=== PATIENT | female | born 1985 | race Caucasian/White ===

== ENCOUNTER 2016-11-30 02:52 | Emergency (ER) | payer OTHER ==
--- NOTE | 2016-11-30 06:35 | ED ORDER SUMMARY ---
..... Patient: BIRD HENAO OrderSheet [facility] VisitID: [id number] [place] [address] 31y, F Registration Date/Time: 11/30/2016 ORDER SHEET Weight: 88.4 kg (stated) Allergies: Penicillins, Sulfa Antibiotics, Azithromycin GENERAL ORDERS: CBC w Diff Urgent (03:05 11/30/2016 Moise Brumfield) (Ack 3:07 AMcQuoid ER Tech1) (4:55 AMcQuoid ER Tech1) CMP Urgent (03:05 11/30/2016 Moise Brumfield) (Ack 3:07 AMcQuoid ER Tech1) (4:55 AMcQuoid ER Tech1) UA-Culture if indicated Urgent (03:05 11/30/2016 Moise Brumfield) (Ack 3:07 AMcQuoid ER Tech1) PT with INR Urgent (03:05 11/30/2016 Moise Brumfield) (Ack 3:07 AMcQuoid ER Tech1) (4:56 AMcQuoid ER Tech1) PTT Urgent (03:05 11/30/2016 Moise Brumfield) (Ack 3:07 AMcQuoid ER Tech1) (4:56 AMcQuoid ER Tech1) Serum Quantitative Urgent (03:05 11/30/2016 Moise Brumfield) (Ack 3:07 AMcQuoid ER Tech1) (4:56 AMcQuoid ER Tech1) Type & Screen Urgent (03:05 11/30/2016 Moise Brumfield) (Ack 3:07 AMcQuoid ER Tech1) (4:56 AMcQuoid ER Tech1) Wet Prep (Vaginal) (mucus/blood) Urgent (03:05 11/30/2016 Moise Brumfield) (Ack 3:07 AMcQuoid ER Tech1) GC/Chlamydia (Cervix) (mucus/blood) Urgent (03:06 11/30/2016 Moise Brumfield) (Ack 3:07 AMcQuoid ER Tech1) US Pelvic Complete w Transvag Urgent (03:13 11/30/2016 Moise Brumfield) (Ack 3:32 AMcQuoid ER Tech1) (Cancelled: Wrong Order4:51 AMcQuoid ER Tech1) US OB 1st Trimester w Transvag (unk) Urgent (04:50 11/30/2016 AMcQuoid ER Tech1 verbal order read back to Moise Brumfield) (4:53 AMcQuoid ER Tech1) MEDICATION ORDERS: IV FLUIDS: IV NS : initial bolus 1000 mL (1000 mL/hr), then none - for X1 (NOW) (03:05 11/30/2016 Moise Brumfield) (Ack 3:05 RCollier R.N.) (3:37 EBonham) Morphine IV 4 mg (HIGH ALERT MEDICATION, NOW) (03:05 11/30/2016 Moise Brumfield) (Ack 3:05 SUSANollier R.N.) (3:36 EBonham) Morphine IV 8 mg (HIGH ALERT MEDICATION, NOW) (04:13 11/30/2016 Moise Brumfield) (Ack 4:17 RCollier R.N.) (4:31 RCollier R.N.) ORDER SHEET NOTES: [Electronically signed by Elizabeth Rowley R.N. (07:00 11/30/2016)] [Electronically signed by Black Chapa Dr. (02:48 12/07/2016)] [Electronically locked/signed by Elizabeth Rowley R.N. (07:00 11/30/2016)]
--- NOTE | 2016-11-30 06:35 | ED CLINICAL REPORT ---
Clinical Report - Physicians/Mid Levels [facility] [address] [place] [address] 11/30/2016 2:51 Patient: BIRD HENAO Arrived- By private vehicle. Historian- patient. HISTORY OF PRESENT ILLNESS Chief Complaint: VAGINAL BLEEDING. This started today. She has had pelvic pain and moderate vaginal bleeding. Is still present and worsening. It was abrupt in onset and has been waxing/waning but is not gone now. No contractions or vaginal discharge. Gestational age is 12 weeks, by dates. Similar symptoms previously: None. Recent medical care: The patient was seen recently in a clinic. REVIEW OF SYSTEMS No black stools, bloody stools, fever or skin rash. All systems otherwise negative, except as recorded above. PAST HISTORY See nurses notes. SOCIAL HISTORY Never smoker. Occasional alcohol use. No drug use. No recent travel. Is a local resident. FAMILY HISTORY (no family history of bleeding problems). ADDITIONAL NOTES The nursing notes have been reviewed. PHYSICAL EXAM Vital Signs: 11/30/2016 02:57 BP: 122/78. HR: 80. RR: 18. O2 saturation: 99%. Temp: 98.2 F. Holt-Rodriguez pain scale: 4/10. Blood pressure normal. Oxygen saturation normal. Appearance: Alert. Oriented X3. No acute distress. HEENT: Normal external inspection. ENT: Pharynx normal. Neck: Neck supple. CVS: Heart sounds normal. Respiratory: No respiratory distress. Breath sounds normal. Chest nontender. Abdomen: Soft and nontender. Bowel sounds normal. No mass. Back: Normal external inspection. Pelvic: Speculum and bimanual exam performed. Normal external exam. Uterine size: weeks (< 12 weeks). No dilation. (Oss closed. No masses. No CMT. Moderate amount of dark red blood and clots in the posterior vaginal vault. Exam performed with pediatric associate Silvia at all times.). Skin: Skin warm and dry. Normal skin color. No rash. Normal skin turgor. Extremities: Extremities nontender. No pathologic edema. LABS, X-RAYS, AND EKG Pelvic Sonogram: PROCEDURE: US OB 1ST TRIMESTER W/TRANSVAG INDICATION: ABNORMAL BLEEDING TECHNIQUE: Estrella scale, color, and spectral Doppler transabdominal and endovaginal sonographic images of the first trimester gravid uterus were obtained. COMPARISON: None. FINDINGS: TRANSABDOMINAL SCANS: There is an early intrauterine gestational sac. TRANSVAGINAL SCANS: There is an early intrauterine gestational sac with pole (1.2 cm, 7.3 weeks). There is no evidence of cardiac activity. In addition, the sac is elongated and extending into the lower uterine segment. IMPRESSION: 1. Early intrauterine demise with probable miscarriage in progress. The study was independently viewed by me and interpreted by the radiologist. The study was discussed with the radiologist (via phone and PACS). Laboratory Tests: CBC w Diff: (QUANG: 11/30/2016 03:35) ( MsgRcvd 11/30/2016 03:41) Final results Test Result Flag Units (Reference) WHITE BLOOD COUNT 8.3 K/uL (4.5-11.5) RED BLOOD COUNT 4.10 M/uL (4.00-5.20) HEMOGLOBIN 12.5 gm/dL (12.0-16.0) HEMATOCRIT 37.2 % (36.0-46.0) MEAN CELL VOLUME 91 fL (80-100) MEAN CORPUSCULAR HGB 31 pg (26-34) MEAN CORPUSCULAR HGB CONC 34 g/dL (31-37) RED CELL DISTRIBUTION WIDTH 12.8 % (11.6-14.8) PLATELET COUNT 243 K/uL (150-400) NEUTROPHIL % 59.5 % (50-75) LYMPH % 30.2 % (25-40) MONO % 7.6 % (3-14) EOSINOPHIL % 2.7 % (0-4) BASOPHIL % 0 % (0-2) PT with INR: (QUANG: 11/30/2016 03:35) ( MsgRcvd 11/30/2016 03:52) Final results Test Result Flag Units (Reference) INR 1.1 (0.8-1.2) Low Intensity Therapy: INR 1.5-2.0 PT range 18.5-23.1Mod.Intensity Therapy: INR 2.0-3.0 PT range 23.1-31.5High Intensity Therapy: INR 2.5-3.5 PT range 27.4-35.5High Intensity Therapy 2: INR 3.0-4.0 PT range 31.5-39.3 APTT 29 SECONDS (24-34) CMP: (QUANG: 11/30/2016 03:35) ( MsgRcvd 11/30/2016 04:10) Final results Test Result Flag Units (Reference) GLUCOSE 105 mg/dL (70-110) BUN 11 mg/dL (7-18) CREATININE 0.8 mg/dL (0.6-1.3) Estimated GFR >60 mL/min Estimated GFR- >60 mL/min Note: Persistent reduction over 3 months in eGFR<60 mL/min/1.73 m2 defines CKD. Patients with eGFR values>=60 mL/min/1.73 m2 may also have CKD if evidence ofpersistent proteinuria. Additional information may be foundat www.kidney.org. SODIUM 140 mmol/L (136-145) POTASSIUM 3.8 mmol/L (3.5-5.1) CHLORIDE 105 mmol/L (98-107) CARBON DIOXIDE 25 mmol/L (21-32) CALCIUM 8.6 mg/dL (8.5-10.1) TOTAL PROTEIN 7.4 g/dL (6.4-8.2) ALBUMIN 3.5 g/dL (3.3-5.0) BILIRUBIN, TOTAL 0.4 mg/dL (0.0-1.0) ALKALINE PHOSPHATASE 81 U/L (46-116) AST (SGOT) 17 U/L (15-37) ALT (SGPT) 28 U/L (12-78) BETA HCG, QUANTITATIVE 759 mIU/mL REFERENCE RANGE:Adult Males: <2 mIU/mLNon- Females: <6 mIU/mL Females:Approximate Approximate hCGGestational Age Range (mIU/mL) 0-1 week 0-501-2 weeks 40-3002-3 weeks 100-44766-8 weeks 500-13316-9 months 5,000-200,0002-3 months 10,000-100,0002nd trimester 3,000-50,0003rd trimester 1,000-50,000 2017:[id number]: (QUANG: 11/30/2016 05:40) ( MsgRcvd 12/02/2016 06:07) Final results SPECIMEN DESCRIPTION: MUCUS/BLOOD Test Result Flag Units (Reference) CHLAMYDIA TRACHOMATIS DANIELLE Negative NEISSERIA GONORRHOEAE DANIELLE Negative Performed at: [facility] Lab[address] [id number] [place] Plant Supervisor: Reji Bustos MD, Phone: [phone] Wet Prep: (QUANG: 11/30/2016 05:40) ( MsgRcvd 11/30/2016 06:07) Final results SPECIMEN DESCRIPTION: MUCUS/BLOOD Test Result Flag Units (Reference) WET MOUNT CLUE CELLS:: NONE EPITHELIAL CELLS: FEW -- SOURCE?: VAGINAL WHITE BLOOD CELLS: RARE TRICHOMONAS:: NONE -- YEAST:: NONE Type & Screen: (QUANG: 11/30/2016 03:35) ( [facility] [place]/30/[place] 04:46) Final results Test Result Flag Units (Reference) PATIENT BLOOD TYPE O Positive ANTIBODY SCREEN NEGATIVE . PROGRESS AND PROCEDURES Course of Care: the patient is a pleasant 31-year-old female presenting for evaluation of vaginal bleeding during . At this time differential diagnosis includes ectopic versus threatened/impending . Laboratory studies have been ordered for evaluation of bleeding. Ultrasound also ordered for evaluation. Patient apparently was at her CLINICAL CARE MANAGER clinics appointment and was told of possible spontaneous . Pain medication as been ordered. Patient is agreeable to the treatment and plan. Workup does not show any acute abnormalities except for patient having signs of impending . Bleeding is been controlled here in the emergency department. Vital signs are unremarkable. Hemoglobin and hematocrit are noted to be within normal limits. Had discussion with patient in regards to miscarriage. Patient reports that she has had a history of this in the past. The rest of the patient's workup including urinalysis and wet prep are otherwise negative. No signs of ectopic however threatened versus impending likely. Patient informed of the pending gonorrhea and chlamydia testing results. I'm completing this note after the patient has been dissed position from the emergency department and also note that the gonorrhea and chlamydia tests are negative. Patient was informed of possible positive results being called and in the next several days. Do not feel patient needs to be admitted to the hospital at this time. Do not feel patient needs further emergency department workup or evaluation. I discussion with her patient in regards to her workup, diagnosis, home care, follow-up, and return precautions. All questions answered. The patient expressed understanding of these instructions and was agreeable to them. Disposition: Discharged. Condition: good. CLINICAL IMPRESSION Incomplete spontaneous . INSTRUCTIONS Warnings: GENERAL WARNINGS: Return or contact your physician immediately if your condition worsens or changes unexpectedly, if not improving as expected, or if other problems arise. Specifically return if pain, vomiting, bleeding, breathing difficulty or fever. Your Current Medications: CONTINUE TAKING THE FOLLOWING MEDICATIONS: Citalopram Hydrobromide Oral : Tablet 40 mg, 1 tablet daily. Doxycycline Hyclate Oral : twice daily, ear/sinus infection. Prescription Medications: Zofran (orally disintegrating tablets) 4 mg: take 1 orally every 8 hours as needed for nausea and vomiting. Dispense ten (10). No refill. Substitution is permissible. Percocet 5 mg/325 mg: take 1 tablet orally every 6 hours as needed for pain. Dispense twenty (20). No refill. Substitution is permissible. Follow-up: Return to the emergency department as needed. Follow up with your doctor in three days. Reason for referral: recheck today's concerns. Summary of care provided to patient via paper. 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 Reason for referral: recheck today's concerns. Summary of care provided to patient via paper. Screening today revealed the patient's blood pressure to be in the normal range. The patient should follow up with a primary care provider for blood pressure management. Understanding of the discharge instructions verbalized by patient. (Electronically signed by Black Chapa Dr. 12/07/2016 2:48)
--- NOTE | 2016-11-30 06:35 | ED ORDER SUMMARY ---
..... Patient: BIRD HENAO OrderSheet [facility] VisitID: [id number] [place] [address] 31y, F Registration Date/Time: 11/30/2016 ORDER SHEET Weight: 88.4 kg (stated) Allergies: Penicillins, Sulfa Antibiotics, Azithromycin GENERAL ORDERS: CBC w Diff Urgent (03:05 11/30/2016 Moise Brumfield) (Ack 3:07 AMcQuoid ER Tech1) (4:55 AMcQuoid ER Tech1) CMP Urgent (03:05 11/30/2016 Moise Brumfield) (Ack 3:07 AMcQuoid ER Tech1) (4:55 AMcQuoid ER Tech1) UA-Culture if indicated Urgent (03:05 11/30/2016 Moise Brumfield) (Ack 3:07 AMcQuoid ER Tech1) PT with INR Urgent (03:05 11/30/2016 Moise Brumfield) (Ack 3:07 AMcQuoid ER Tech1) (4:56 AMcQuoid ER Tech1) PTT Urgent (03:05 11/30/2016 Moise Brumfield) (Ack 3:07 AMcQuoid ER Tech1) (4:56 AMcQuoid ER Tech1) Serum Quantitative Urgent (03:05 11/30/2016 Moise Brumfield) (Ack 3:07 AMcQuoid ER Tech1) (4:56 AMcQuoid ER Tech1) Type & Screen Urgent (03:05 11/30/2016 Moise Brumfield) (Ack 3:07 AMcQuoid ER Tech1) (4:56 AMcQuoid ER Tech1) Wet Prep (Vaginal) (mucus/blood) Urgent (03:05 11/30/2016 Moise Brumfield) (Ack 3:07 AMcQuoid ER Tech1) GC/Chlamydia (Cervix) (mucus/blood) Urgent (03:06 11/30/2016 Moise Brumfield) (Ack 3:07 AMcQuoid ER Tech1) US Pelvic Complete w Transvag Urgent (03:13 11/30/2016 Moise Brumfield) (Ack 3:32 AMcQuoid ER Tech1) (Cancelled: Wrong Order4:51 AMcQuoid ER Tech1) US OB 1st Trimester w Transvag (unk) Urgent (04:50 11/30/2016 AMcQuoid ER Tech1 verbal order read back to Moise Brumfield) (4:53 AMcQuoid ER Tech1) MEDICATION ORDERS: IV FLUIDS: IV NS : initial bolus 1000 mL (1000 mL/hr), then none - for X1 (NOW) (03:05 11/30/2016 Moise Brumfield) (Ack 3:05 RCollier R.N.) (3:37 EBonham) Morphine IV 4 mg (HIGH ALERT MEDICATION, NOW) (03:05 11/30/2016 Moise Brumfield) (Ack 3:05 SUSANollier R.N.) (3:36 EBonham) Morphine IV 8 mg (HIGH ALERT MEDICATION, NOW) (04:13 11/30/2016 Moise Brumfield) (Ack 4:17 RCollier R.N.) (4:31 RCollier R.N.) ORDER SHEET NOTES: [Electronically signed by Elizabeth Rowley R.N. (07:00 11/30/2016)] [Electronically signed by Black Chapa Dr. (02:48 12/07/2016)] [Electronically locked/signed by Elizabeth Rowley R.N. (07:00 11/30/2016)]
--- NOTE | 2016-11-30 06:35 | ED CLINICAL REPORT ---
Clinical Report - Physicians/Mid Levels [facility] [address] [place] [address] 11/30/2016 2:51 Patient: BIRD HENAO Arrived- By private vehicle. Historian- patient. HISTORY OF PRESENT ILLNESS Chief Complaint: VAGINAL BLEEDING. This started today. She has had pelvic pain and moderate vaginal bleeding. Is still present and worsening. It was abrupt in onset and has been waxing/waning but is not gone now. No contractions or vaginal discharge. Gestational age is 12 weeks, by dates. Similar symptoms previously: None. Recent medical care: The patient was seen recently in a clinic. REVIEW OF SYSTEMS No black stools, bloody stools, fever or skin rash. All systems otherwise negative, except as recorded above. PAST HISTORY See nurses notes. SOCIAL HISTORY Never smoker. Occasional alcohol use. No drug use. No recent travel. Is a local resident. FAMILY HISTORY (no family history of bleeding problems). ADDITIONAL NOTES The nursing notes have been reviewed. PHYSICAL EXAM Vital Signs: 11/30/2016 02:57 BP: 122/78. HR: 80. RR: 18. O2 saturation: 99%. Temp: 98.2 F. Holt-Rodriguez pain scale: 4/10. Blood pressure normal. Oxygen saturation normal. Appearance: Alert. Oriented X3. No acute distress. HEENT: Normal external inspection. ENT: Pharynx normal. Neck: Neck supple. CVS: Heart sounds normal. Respiratory: No respiratory distress. Breath sounds normal. Chest nontender. Abdomen: Soft and nontender. Bowel sounds normal. No mass. Back: Normal external inspection. Pelvic: Speculum and bimanual exam performed. Normal external exam. Uterine size: weeks (< 12 weeks). No dilation. (Oss closed. No masses. No CMT. Moderate amount of dark red blood and clots in the posterior vaginal vault. Exam performed with purchasing/receiving Silvia at all times.). Skin: Skin warm and dry. Normal skin color. No rash. Normal skin turgor. Extremities: Extremities nontender. No pathologic edema. LABS, X-RAYS, AND EKG Pelvic Sonogram: PROCEDURE: US OB 1ST TRIMESTER W/TRANSVAG INDICATION: ABNORMAL BLEEDING TECHNIQUE: Estrella scale, color, and spectral Doppler transabdominal and endovaginal sonographic images of the first trimester gravid uterus were obtained. COMPARISON: None. FINDINGS: TRANSABDOMINAL SCANS: There is an early intrauterine gestational sac. TRANSVAGINAL SCANS: There is an early intrauterine gestational sac with pole (1.2 cm, 7.3 weeks). There is no evidence of cardiac activity. In addition, the sac is elongated and extending into the lower uterine segment. IMPRESSION: 1. Early intrauterine demise with probable miscarriage in progress. The study was independently viewed by me and interpreted by the radiologist. The study was discussed with the radiologist (via phone and PACS). Laboratory Tests: CBC w Diff: (QUANG: 11/30/2016 03:35) ( MsgRcvd 11/30/2016 03:41) Final results Test Result Flag Units (Reference) WHITE BLOOD COUNT 8.3 K/uL (4.5-11.5) RED BLOOD COUNT 4.10 M/uL (4.00-5.20) HEMOGLOBIN 12.5 gm/dL (12.0-16.0) HEMATOCRIT 37.2 % (36.0-46.0) MEAN CELL VOLUME 91 fL (80-100) MEAN CORPUSCULAR HGB 31 pg (26-34) MEAN CORPUSCULAR HGB CONC 34 g/dL (31-37) RED CELL DISTRIBUTION WIDTH 12.8 % (11.6-14.8) PLATELET COUNT 243 K/uL (150-400) NEUTROPHIL % 59.5 % (50-75) LYMPH % 30.2 % (25-40) MONO % 7.6 % (3-14) EOSINOPHIL % 2.7 % (0-4) BASOPHIL % 0 % (0-2) PT with INR: (QUANG: 11/30/2016 03:35) ( MsgRcvd 11/30/2016 03:52) Final results Test Result Flag Units (Reference) INR 1.1 (0.8-1.2) Low Intensity Therapy: INR 1.5-2.0 PT range 18.5-23.1Mod.Intensity Therapy: INR 2.0-3.0 PT range 23.1-31.5High Intensity Therapy: INR 2.5-3.5 PT range 27.4-35.5High Intensity Therapy 2: INR 3.0-4.0 PT range 31.5-39.3 APTT 29 SECONDS (24-34) CMP: (QUANG: 11/30/2016 03:35) ( MsgRcvd 11/30/2016 04:10) Final results Test Result Flag Units (Reference) GLUCOSE 105 mg/dL (70-110) BUN 11 mg/dL (7-18) CREATININE 0.8 mg/dL (0.6-1.3) Estimated GFR >60 mL/min Estimated GFR- >60 mL/min Note: Persistent reduction over 3 months in eGFR<60 mL/min/1.73 m2 defines CKD. Patients with eGFR values>=60 mL/min/1.73 m2 may also have CKD if evidence ofpersistent proteinuria. Additional information may be foundat www.kidney.org. SODIUM 140 mmol/L (136-145) POTASSIUM 3.8 mmol/L (3.5-5.1) CHLORIDE 105 mmol/L (98-107) CARBON DIOXIDE 25 mmol/L (21-32) CALCIUM 8.6 mg/dL (8.5-10.1) TOTAL PROTEIN 7.4 g/dL (6.4-8.2) ALBUMIN 3.5 g/dL (3.3-5.0) BILIRUBIN, TOTAL 0.4 mg/dL (0.0-1.0) ALKALINE PHOSPHATASE 81 U/L (46-116) AST (SGOT) 17 U/L (15-37) ALT (SGPT) 28 U/L (12-78) BETA HCG, QUANTITATIVE 759 mIU/mL REFERENCE RANGE:Adult Males: <2 mIU/mLNon- Females: <6 mIU/mL Females:Approximate Approximate hCGGestational Age Range (mIU/mL) 0-1 week 0-501-2 weeks 40-3002-3 weeks 100-60625-8 weeks 500-00684-7 months 5,000-200,0002-3 months 10,000-100,0002nd trimester 3,000-50,0003rd trimester 1,000-50,000 2017:[id number]: (QUANG: 11/30/2016 05:40) ( MsgRcvd 12/02/2016 06:07) Final results SPECIMEN DESCRIPTION: MUCUS/BLOOD Test Result Flag Units (Reference) CHLAMYDIA TRACHOMATIS DANIELLE Negative NEISSERIA GONORRHOEAE DANIELLE Negative Performed at: [facility] [address] [id number] Swimming Pool Plasterer Helper: Reji Bustos MD, Phone: [phone] Wet Prep: (QUANG: 11/30/2016 05:40) ( MsgRcvd 11/30/2016 06:07) Final results SPECIMEN DESCRIPTION: MUCUS/BLOOD Test Result Flag Units (Reference) WET MOUNT CLUE CELLS:: NONE EPITHELIAL CELLS: FEW -- SOURCE?: VAGINAL WHITE BLOOD CELLS: RARE TRICHOMONAS:: NONE -- YEAST:: NONE Type & Screen: (QUANG: 11/30/2016 03:35) ( [facility] [place] 11/30/2016 04:46) Final results Test Result Flag Units (Reference) PATIENT BLOOD TYPE O Positive ANTIBODY SCREEN NEGATIVE . PROGRESS AND PROCEDURES Course of Care: the patient is a pleasant 31-year-old female presenting for evaluation of vaginal bleeding during . At this time differential diagnosis includes ectopic versus threatened/impending . Laboratory studies have been ordered for evaluation of bleeding. Ultrasound also ordered for evaluation. 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 Pain medication as been ordered. Patient is agreeable to the treatment and plan. Workup does not show any acute abnormalities except for patient having signs of impending . Bleeding is been controlled here in the emergency department. Vital signs are unremarkable. Hemoglobin and hematocrit are noted to be within normal limits. Had discussion with patient in regards to miscarriage. Patient reports that she has had a history of this in the past. The rest of the patient's workup including urinalysis and wet prep are otherwise negative. No signs of ectopic however threatened versus impending likely. Patient informed of the pending gonorrhea and chlamydia testing results. I'm completing this note after the patient has been dissed position from the emergency department and also note that the gonorrhea and chlamydia tests are negative. Patient was informed of possible positive results being called and in the next several days. Do not feel patient needs to be admitted to the hospital at this time. Do not feel patient needs further emergency department workup or evaluation. I discussion with her patient in regards to her workup, diagnosis, home care, follow-up, and return precautions. All questions answered. The patient expressed understanding of these instructions and was agreeable to them. Disposition: Discharged. Condition: good. CLINICAL IMPRESSION Incomplete spontaneous . INSTRUCTIONS Warnings: GENERAL WARNINGS: Return or contact your physician immediately if your condition worsens or changes unexpectedly, if not improving as expected, or if other problems arise. Specifically return if pain, vomiting, bleeding, breathing difficulty or fever. Your Current Medications: CONTINUE TAKING THE FOLLOWING MEDICATIONS: Citalopram Hydrobromide Oral : Tablet 40 mg, 1 tablet daily. Doxycycline Hyclate Oral : twice daily, ear/sinus infection. Prescription Medications: Zofran (orally disintegrating tablets) 4 mg: take 1 orally every 8 hours as needed for nausea and vomiting. Dispense ten (10). No refill. Substitution is permissible. Percocet 5 mg/325 mg: take 1 tablet orally every 6 hours as needed for pain. Dispense twenty (20). No refill. Substitution is permissible. Follow-up: Return to the emergency department as needed. Follow up with your doctor in three days. Reason for referral: recheck today's concerns. Summary of care provided to patient via paper. Follow up with doctor your loading manager in three days. Reason for referral: recheck today's concerns. Summary of care provided to patient via paper. Screening today revealed the patient's blood pressure to be in the normal range. The patient should follow up with a primary care provider for blood pressure management. Understanding of the discharge instructions verbalized by patient. (Electronically signed by Black Chapa Dr. 12/07/2016 2:48)
--- NOTE | 2016-11-30 06:35 | ED NURSING NOTES ---
Clinical Report - Nurses [facility] [place] [address] 11/30/2016 2:51 Patient: BIRD HENAO TRIAGE Triage time 02:57. Acuity: LEVEL 4. Chief Complaint: ABDOMINAL PAIN and CRAMPS and VAGINAL BLEEDING. Alert. No acute distress. --03:03 Elizabeth Rowley R.N. 02:57 11/30/16. BP: 122/78. HR: 80. RR: 18. O2 saturation: 99%. Temp: 98.2 F (oral). Holt-Rodriguez pain scale: 4/10. --03:03 Elizabeth Rowley R.N. Weight: 88.4 kg stated. Height/Length: 69 inches Per Patient. BMI: 28.8. --02:57 Elizabeth Rowley R.N. Medications Doxycycline Hyclate Oral, twice daily, ear/sinus infection. --02:59 Elizabeth Rowley R.N. Citalopram Hydrobromide Oral (Tablet 40 mg) 1 tablet, daily. --02:59 Elizabeth Rowley R.N. Allergies Penicillins. Sulfa Antibiotics. --03:00 Elizabeth Rowley R.N. Azithromycin. (medication reaction to Citalopram) --03:00 Elizabeth Rowley R.N. History Arrived by private vehicle. Historian: patient. Accompanied by family. Primary physician (/[facility] (Dr Senait ALMEIDA)). This started today. Onset. (about 1 1/2 hours ago (pt is in process of misscarrying)). 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 (500mg at 0200). PAST MEDICAL HX: Immunizations: up-to-date. Last normal menstrual period- August 2016. 4. Para 1. Abortions 3. SOCIAL HX: Never smoker. Occasional alcohol use. No drug use. NUTRITIONAL RISK ASSESSMENT: The nutritional risk assessment revealed no deficiencies. FUNCTIONAL ASSESSMENT: Functional assessment: no impairments noted. --03:03 Elizabeth Rowley R.N. PROBLEMS: Depression. Anxiety Reaction. Migraine Headache. --03:01 Elizabeth Rowley R.N. ADDITIONAL SURGERIES: . Slap lesion repair. Tonsillectomy & Adenoidectomy. --03:01 Elizabeth Rowley R.N. Interventions ID band on patient. To treatment room. --03:03 Elizabeth Rowley R.N. PHYSICAL ASSESSMENT Ambulatory to room. Patient gowned. GENERAL / NEURO / PSYCH: Alert. Oriented X 4. Appears in no acute distress. HEENT: Mucous membranes are pink. RESPIRATORY: Respirations not labored. CVS: Capillary refill less than 2 seconds. SKIN: Skin is warm and dry. --03:03 Elizabeth Rowley R.N. NURSING PROGRESS NOTES Head of bed elevated. Two patient identifiers checked. Call light placed in reach. Side rails up x 1. Bed placed in lowest position. Brakes of bed on. --03:04 Elizabeth Rowley R.N. Patient ready for evaluation- chart flagged. --03:04 Elizabeth Rowley R.N. 03:25 11/30/2016 Two (2) unsuccessful IV access attempts including the right antecubital space and hand. Applied bandaid. --03:30 Elizabeth Rowley R.N. 03:36 11/30/2016 Site #1 started via IV in the left antecubital space with an 20g angiocath, with aseptic technique and good blood return; one attempt. Blood drawn: rainbow set. Labeled in the presence of the patient and sent to the lab. Saline lock flushed with 10 mL saline. --03:36 Stephanie Henry 03:36 11/30/2016 Morphine IVP 4 mg given. via site #1. Allergies verified, confirmed 5 rights and sedative warning given to the patient. IV patency established. IV site checked: no pain, redness, or swelling. IV flushed thoroughly pre- and post-medication administration. IVP given by RN. --03:36 Stephanie Henry 03:37 11/30/2016 Started bag #1 1000 mL IV Fluids IV NS (Saline); bolus of 1000 mL wide open via site #1 --03:37 Stephanie Henry 04:28 11/30/2016 Morphine IVP 8 mg given over 3 minute(s) via site #1. Allergies verified, confirmed 5 rights and sedative warning given to the patient. IV patency established. IV site checked: no pain, redness, or swelling. IV flushed thoroughly pre- and post-medication administration. IVP given by RN. --04:31 Elizabeth Rowley R.N. ( Application Processor US exam). --04:51 Silvia Jordan 05:18 11/30/2016 IV Fluids IV NS Discontinued: bag #1 completed. Total amount infused: 1000 mL. IV patency established. IV site checked: no pain, redness, or swelling. IV flushed thoroughly. --05:18 Elizabeth Rowley R.N. Application Processor provided for the pelvic exam by the physician ([id number]). --06:04 Silvia Jordan. DISPOSITION / DISCHARGE Condition at departure: stable. No learning barriers present. Discharge instructions provided and reviewed with the patient. Reviewed medication(s) side effects, precautions, dosing and course information. Prescription(s) given to the patient. Patient verbalized understanding. Written instructions provided in Belarusian. The patient was discharged home and accompanied by family. She left the Emergency Department ambulatory and via private vehicle. Family member driving. --06:59 Elizabeth Rowley R.N. 06:54 11/30/16. BP: 109/66. HR: 90. RR: 15. O2 saturation: 99% on room air. Temp: 98.2 F (oral). Holt-Rodriguez pain scale: 2/10. --06:59 Elizabeth Rowley R.N. 06:50 11/30/2016 Site #1 removed upon discharge. Catheter intact. Bandage applied. --06:59 Elizabeth Rowley R.N. Locked/Released at 11/30/2016 7:00 by Elizabeth Rowley R.N.
--- NOTE | 2016-11-30 06:35 | ED NURSING NOTES ---
Clinical Report - Nurses [facility] [place] [address] 11/30/2016 2:51 Patient: BIRD HENAO TRIAGE Triage time 02:57. Acuity: LEVEL 4. Chief Complaint: ABDOMINAL PAIN and CRAMPS and VAGINAL BLEEDING. Alert. No acute distress. --03:03 Elizabeth Rowley R.N. 02:57 11/30/16. BP: 122/78. HR: 80. RR: 18. O2 saturation: 99%. Temp: 98.2 F (oral). Holt-Rodriguez pain scale: 4/10. --03:03 Elizabeth Rowley R.N. Weight: 88.4 kg stated. Height/Length: 69 inches Per Patient. BMI: 28.8. --02:57 Elizabeth Rowley R.N. Medications Doxycycline Hyclate Oral, twice daily, ear/sinus infection. --02:59 Elizabeth Rowley R.N. Citalopram Hydrobromide Oral (Tablet 40 mg) 1 tablet, daily. --02:59 Elizabeth Rowley R.N. Allergies Penicillins. Sulfa Antibiotics. --03:00 Elizabeth Rowley R.N. Azithromycin. (medication reaction to Citalopram) --03:00 Elizabeth Rowley R.N. History Arrived by private vehicle. Historian: patient. Accompanied by family. Primary physician (/[facility] (Dr Senait ALMEIDA)). This started today. Onset. (about 1 1/2 hours ago (pt is in process of misscarrying)). 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 (500mg at 0200). PAST MEDICAL HX: Immunizations: up-to-date. Last normal menstrual period- August 2016. 4. Para 1. Abortions 3. SOCIAL HX: Never smoker. Occasional alcohol use. No drug use. NUTRITIONAL RISK ASSESSMENT: The nutritional risk assessment revealed no deficiencies. FUNCTIONAL ASSESSMENT: Functional assessment: no impairments noted. --03:03 Elizabeth Rowley R.N. PROBLEMS: Depression. Anxiety Reaction. Migraine Headache. --03:01 Elizabeth Rowley R.N. ADDITIONAL SURGERIES: . Slap lesion repair. Tonsillectomy & Adenoidectomy. --03:01 Elizabeth Rowley R.N. Interventions ID band on patient. To treatment room. --03:03 Elizabeth Rowley R.N. PHYSICAL ASSESSMENT Ambulatory to room. Patient gowned. GENERAL / NEURO / PSYCH: Alert. Oriented X 4. Appears in no acute distress. HEENT: Mucous membranes are pink. RESPIRATORY: Respirations not labored. CVS: Capillary refill less than 2 seconds. SKIN: Skin is warm and dry. --03:03 Elizabeth Rowley R.N. NURSING PROGRESS NOTES Head of bed elevated. Two patient identifiers checked. Call light placed in reach. Side rails up x 1. Bed placed in lowest position. Brakes of bed on. --03:04 Elizabeth Rowley R.N. Patient ready for evaluation- chart flagged. --03:04 Elizabeth Rowley R.N. 03:25 11/30/2016 Two (2) unsuccessful IV access attempts including the right antecubital space and hand. Applied bandaid. --03:30 Elizabeth Rowley R.N. 03:36 11/30/2016 Site #1 started via IV in the left antecubital space with an 20g angiocath, with aseptic technique and good blood return; one attempt. Blood drawn: rainbow set. Labeled in the presence of the patient and sent to the lab. Saline lock flushed with 10 mL saline. --03:36 Stephanie Henry 03:36 11/30/2016 Morphine IVP 4 mg given. via site #1. Allergies verified, confirmed 5 rights and sedative warning given to the patient. IV patency established. IV site checked: no pain, redness, or swelling. IV flushed thoroughly pre- and post-medication administration. IVP given by RN. --03:36 Stephanie Henry 03:37 11/30/2016 Started bag #1 1000 mL IV Fluids IV NS (Saline); bolus of 1000 mL wide open via site #1 --03:37 Stephanie Henry 04:28 11/30/2016 Morphine IVP 8 mg given over 3 minute(s) via site #1. Allergies verified, confirmed 5 rights and sedative warning given to the patient. IV patency established. IV site checked: no pain, redness, or swelling. IV flushed thoroughly pre- and post-medication administration. IVP given by RN. --04:31 Elizabeth Rowley R.N. ( Popcorn Machine Operator US exam). --04:51 Silvia Jordan 05:18 11/30/2016 IV Fluids IV NS Discontinued: bag #1 completed. Total amount infused: 1000 mL. IV patency established. IV site checked: no pain, redness, or swelling. IV flushed thoroughly. --05:18 Elizabeth Rowley R.N. Popcorn Machine Operator provided for the pelvic exam by the physician ([id number]). --06:04 Silvia Jordan. DISPOSITION / DISCHARGE Condition at departure: stable. No learning barriers present. Discharge instructions provided and reviewed with the patient. Reviewed medication(s) side effects, precautions, dosing and course information. Prescription(s) given to the patient. Patient verbalized understanding. Written instructions provided in Nigerien. The patient was discharged home and accompanied by family. She left the Emergency Department ambulatory and via private vehicle. Family member driving. --06:59 Elizabeth Rowley R.N. 06:54 11/30/16. BP: 109/66. HR: 90. RR: 15. O2 saturation: 99% on room air. Temp: 98.2 F (oral). Holt-Rodriguez pain scale: 2/10. --06:59 Elizabeth Rowley R.N. 06:50 11/30/2016 Site #1 removed upon discharge. Catheter intact. Bandage applied. --06:59 Elizabeth Rowley R.N. Locked/Released at 11/30/2016 7:00 by Elizabeth Rowley R.N.
--- NOTE | 2016-11-30 09:13 | DIAGNOSTIC IMAGING REPORT ---
PROCEDURE: US OB 1ST TRIMESTER W/TRANSVAG INDICATION: ABNORMAL BLEEDING TECHNIQUE: Estrella scale, color, and spectral Doppler transabdominal and endovaginal sonographic images of the first trimester gravid uterus were obtained. COMPARISON: None. FINDINGS: TRANSABDOMINAL SCANS: There is an early intrauterine gestational sac. TRANSVAGINAL SCANS: There is an early intrauterine gestational sac with pole (1.2 cm, 7.3 weeks). There is no evidence of cardiac activity. In addition, the sac is elongated and extending into the lower uterine segment. IMPRESSION: 1. Early intrauterine demise with probable miscarriage in progress. 2. Findings discussed with Dr. Chapa.
--- NOTE | 2016-12-07 02:48 | ED MED RECONCILIATION SUMMARY ---
Patient: BIRD HENAO Medication Reconciliation Report [facility] VisitID: [id number] [address] [place] [address] 31y, F Registration Date/Time: 11/30/2016 Weight: 88.4 kg Height/Length: 69 in. BMI: 28.8 ALLERGIES: Azithromycin, Penicillins, Sulfa Antibiotics The patient's Home Medications are listed below: CONTINUE TAKING THE FOLLOWING MEDICATIONS: Citalopram Hydrobromide Oral (40 mg) 1 tablet, daily Doxycycline Hyclate Oral, twice daily, ear/sinus infection The source(s) of the original Home Medication information: Not obtained. The following Medications were given to the patient in the Emergency Department: Morphine [IVP] IVP 4 mg, administered: 11/30/2016 3:36:00 AM IV NS IV Fluids bolus 1000 mL wide open, administered: 11/30/2016 3:37:00 AM Morphine [IVP] IVP 8 mg, administered: 11/30/2016 4:28:00 AM The following Medications were prescribed to the patient: Zofran (orally disintegrating tablets) 4 mg: take 1 orally every 8 hours as needed for nausea and vomiting. Dispense ten (10). No refill. Substitution is permissible. -- [address]. Percocet 5 mg/325 mg: take 1 tablet orally every 6 hours as needed for pain. Dispense twenty (20). No refill. Substitution is permissible. -- [address].
--- NOTE | 2016-12-07 02:48 | ED MAR SUMMARY ---
..... Medication Administration Record [facility] [address] [place] [address] Patient: BIRD HENAO Visit ID: [id number] 31y, F Weight: 88.4 kg Height/Length: 69 in BMI: 28.8 ALLERGIES: Azithromycin, Sulfa Antibiotics, Penicillins Given 03:36 11/30/2016 Stephanie Henry, Medication Administered: MORPHINE [IVP], Dose: 4 mg IVP, Site: #1 left AC. Medication Ordered: Morphine IV 4 mg (HIGH ALERT MEDICATION, NOW). Start 03:37 11/30/2016 Stephanie Henry,, Stop 05:18 11/30/2016 Elizabeth Rowley RChantalNChantal Medication Administered: IV NS (SALINE), Dose: IV Fluids, Bolus: 1000 mL wide open, Dispensed: 1000 mL bag, Site: #1 left AC. Medication Ordered: IV NS : initial bolus 1000 mL (1000 mL/hr), then none - for X1 (NOW). Given 04:28 11/30/2016 Elizabeth Rowley RChantalNChantal Medication Administered: MORPHINE [IVP], Dose: 8 mg IVP over 3 minute(s), Site: #1 left AC. Medication Ordered: Morphine IV 8 mg (HIGH ALERT MEDICATION, NOW).
--- NOTE | 2016-12-07 02:48 | ED DISCHARGE INSTRUCTIONS ---
Patient: BIRD HENAO General Instructions [facility] VisitID: [id number] [place] [address] 31y, F Registration Date/Time: 11/30/2016 Incomplete spontaneous . INSTRUCTIONS Warnings: GENERAL WARNINGS: Return or contact your physician immediately if your condition worsens or changes unexpectedly, if not improving as expected, or if other problems arise. Specifically return if pain, vomiting, bleeding, breathing difficulty or fever. Your Current Medications: CONTINUE TAKING THE FOLLOWING MEDICATIONS: Citalopram Hydrobromide Oral : Tablet 40 mg, 1 tablet daily. Doxycycline Hyclate Oral : twice daily, ear/sinus infection. Prescription Medications: Zofran (orally disintegrating tablets) 4 mg: take 1 orally every 8 hours as needed for nausea and vomiting. Dispense ten (10). No refill. Substitution is permissible. Percocet 5 mg/325 mg: take 1 tablet orally every 6 hours as needed for pain. Dispense twenty (20). No refill. Substitution is permissible. Follow-up: Return to the emergency department as needed. Follow up with your doctor in three days. Reason for referral: recheck today's concerns. Summary of care provided to patient via paper. Follow up with doctor your slasher runner in three days. Reason for referral: recheck today's concerns. Summary of care provided to patient via paper. Screening today revealed the patient's blood pressure to be in the normal range. The patient should follow up with a primary care provider for blood pressure management. Understanding of the discharge instructions verbalized by patient. ADDITIONAL INFORMATION Miscarriage (Incomplete) Todays exam shows that your has ended suddenly. While this may be an emotionally difficult time for you, know that it is not an uncommon event. A miscarriage can be due to various causes. These include a problem with the babys chromosomes (genes that carry the information needed for life) or with fertilization or implantation that didnt happen correctly. In most cases no cause can be found. Be assured that this miscarriage was not the result of anything that you did wrong, and it will not interfere with your ability to become in the future. It appears that your miscarriage is not yet complete. There is still some tissue from the in the uterus. You will probably have more cramping and bleeding for the next few days as the uterus expels the tissue. In many cases all of the tissue will pass by itself. But sometimes tissue remains and it must be removed to stop bleeding and prevent infection. Home Care: You may resume normal activities if you are not having heavy bleeding or pain. Until the bleeding stops completely and to prevent infection: Do not have sexual intercourse for as long as the healthcare provider tells you. Use sanitary napkins instead of tampons. Do not douche. If you feel sadness or grief, it may help to talk about your feelings with family and friends, or with a counselor. Follow Up: Make an appointment to see your doctor as directed by our staff. tissue will appear as a one-inch or larger piece of andersen or pink flesh. If tissue has not passed from the vagina within the next 5 days, you need to be seen by your doctor for another exam. To prevent infection in the uterus, it may be necessary to remove the tissue through a surgical procedure. Or, you may be prescribed medication to take at home to help your body expel the remaining tissue. Get Prompt Medical Attention if any of the following occur: Heavy bleeding (soaking one new pad an hour over three hours) Foul-smelling vaginal discharge Fever of 100.4F (38C) or higher, or as directed by your healthcare provider Increasing lower abdominal pain Weakness, dizziness, or fainting Ondansetron Oral disintegrating tablet What is this medicine? ONDANSETRON (on BEATRIZ se cayla) is used to treat nausea and vomiting caused by chemotherapy. It is also used to prevent or treat nausea and vomiting after surgery. How should I use this medicine? These tablets are made to dissolve in the mouth. Do not try to push the tablet through the foil backing. With dry hands, peel away the foil backing and gently remove the tablet. Place the tablet in the mouth and allow it to dissolve, then swallow. While you may take these tablets with water, it is not necessary to do so. Talk to your head cleaning porter regarding the use of this medicine in children. Special care may be needed. What side effects may I notice from receiving this medicine? Side effects that you should report to your doctor or health transitions rn care coordinator as soon as possible: allergic reactions like skin rash, itching or hives, swelling of the face, lips, or tongue breathing problems dizziness fast or irregular heartbeat feeling faint or lightheaded, falls fever and chills swelling of the hands and feet tightness in the chest Side effects that usually do not require medical attention (report to your doctor or health transitions rn care coordinator if they continue or are bothersome): constipation or diarrhea headache What may interact with this medicine? Do not take this medicine with any of the following medications: -apomorphine -cisapride -dofetilide -dronedarone -pimozide -thioridazine -ziprasidone This medicine may also interact with the following medications: -carbamazepine -phenytoin -rifampicin -tramadol -other medicines that prolong the QT interval (cause an abnormal heart rhythm) What if I miss a dose? If you miss a dose, take it as soon as you can. If it is almost time for your next dose, take only that dose. Do not take double or extra doses. Where should I keep my medicine? Keep out of the reach of children. Store between 2 and 30 degrees C (36 and 86 degrees F). Throw away any unused medicine after the expiration date. What should I tell my health care provider before I take this medicine? They need to know if you have any of these conditions: heart disease history of irregular heartbeat liver disease low levels of magnesium or potassium in the blood an unusual or allergic reaction to ondansetron, granisetron, other medicines, foods, dyes, or preservatives or trying to get breast-feeding What should I watch for while using this medicine? Check with your doctor or health transitions rn care coordinator as soon as you can if you have any sign of an allergic reaction. Oxycodone Hydrochloride, Acetaminophen Oral tablet What is this medicine? ACETAMINOPHEN; OXYCODONE (a set a LUDIN dick fen; ox i KOE done) is a pain reliever. It is used to treat mild to moderate pain. How should I use this medicine? Take this medicine by mouth with a full glass of water. Follow the directions on the prescription label. Take your medicine at regular intervals. Do not take your medicine more often than directed. Talk to your head cleaning porter regarding the use of this medicine in children. Special care may be needed. Patients over 65 years old may have a stronger reaction and need a smaller dose. What side effects may I notice from receiving this medicine? Side effects that you should report to your doctor or health transitions rn care coordinator as soon as possible: allergic reactions like skin rash, itching or hives, swelling of the face, lips, or tongue breathing difficulties, wheezing confusion light headedness or fainting spells severe stomach pain yellowing of the skin or the whites of the eyes Side effects that usually do not require medical attention (report to your doctor or health transitions rn care coordinator if they continue or are bothersome): dizziness drowsiness nausea vomiting What may interact with this medicine? alcohol antihistamines barbiturates like amobarbital, butalbital, butabarbital, methohexital, pentobarbital, phenobarbital, thiopental, and secobarbital benztropine drugs for bladder problems like solifenacin, trospium, oxybutynin, tolterodine, hyoscyamine, and methscopolamine drugs for breathing problems like ipratropium and tiotropium drugs for certain stomach or intestine problems like propantheline, homatropine methylbromide, glycopyrrolate, atropine, belladonna, and dicyclomine general anesthetics like etomidate, ketamine, nitrous oxide, propofol, desflurane, enflurane, halothane, isoflurane, and sevoflurane medicines for depression, anxiety, or psychotic disturbances medicines for sleep muscle relaxants naltrexone narcotic medicines (opiates) for pain phenothiazines like perphenazine, thioridazine, chlorpromazine, mesoridazine, fluphenazine, prochlorperazine, promazine, and trifluoperazine scopolamine tramadol trihexyphenidyl What if I miss a dose? If you miss a dose, take it as soon as you can. If it is almost time for your next dose, take only that dose. Do not take double or extra doses. Where should I keep my medicine? Keep out of the reach of children. This medicine can be abused. Keep your medicine in a safe place to protect it from theft. Do not share this medicine with anyone. Selling or giving away this medicine is dangerous and against the law. Store at room temperature between 20 and 25 degrees C (68 and 77 degrees F). Keep container tightly closed. Protect from light. This medicine may cause accidental overdose and if it is taken by other adults, children, or pets. Flush any unused medicine down the toilet to reduce the chance of harm. Do not use the medicine after the expiration date. What should I tell my health care provider before I take this medicine? They need to know if you have any of these conditions: brain tumor Crohn's disease, inflammatory bowel disease, or ulcerative colitis drink more than 3 alcohol containing drinks per day drug abuse or addiction head injury heart or circulation problems kidney disease or problems going to the bathroom liver disease lung disease, asthma, or breathing problems an unusual or allergic reaction to acetaminophen, oxycodone, other opioid analgesics, other medicines, foods, dyes, or preservatives or trying to get breast-feeding What should I watch for while using this medicine? Tell your doctor or health transitions rn care coordinator if your pain does not go away, if it gets worse, or if you have new or a different type of pain. You may develop tolerance to the medicine. Tolerance means that you will need a higher dose of the medication for pain relief. Tolerance is normal and is expected if you take this medicine for a long time. Do not suddenly stop taking your medicine because you may develop a severe reaction. Your body becomes used to the medicine. This does NOT mean you are addicted. Addiction is a behavior related to getting and using a drug for a non-medical reason. If you have pain, you have a medical reason to take pain medicine. Your doctor will tell you how much medicine to take. If your doctor wants you to stop the medicine, the dose will be slowly lowered over time to avoid any side effects. You may get drowsy or dizzy. Do not drive, use machinery, or do anything that needs mental alertness until you know how this medicine affects you. Do not stand or sit up quickly, especially if you are an older patient. This reduces the risk of dizzy or fainting spells. Alcohol may interfere with the effect of this medicine. Avoid alcoholic drinks. There are different types of narcotic medicines (opiates) for pain. If you take more than one type at the same time, you may have more side effects. Give your health care provider a list of all medicines you use. Your doctor will tell you how much medicine to take. Do not take more medicine than directed. Call emergency for help if you have problems breathing. The medicine will cause constipation. Try to have a bowel movement at least every 2 to 3 days. If you do not have a bowel movement for 3 days, call your doctor or health transitions rn care coordinator. Do not take Tylenol (acetaminophen) or medicines that have acetaminophen with this medicine. Too much acetaminophen can be very dangerous. Many nonprescription medicines contain acetaminophen. Always read the labels carefully to avoid taking more acetaminophen. You have been given the following additional information: Miscarriage (Incomplete) Ondansetron Oral disintegrating tablet Oxycodone Hydrochloride, Acetaminophen Oral tablet (Electronically signed by Black Chapa Dr. 12/07/2016 2:48)
--- NOTE | 2016-12-07 02:48 | ED MED RECONCILIATION SUMMARY ---
Patient: BIRD HENAO Medication Reconciliation Report [facility] VisitID: [id number] [address] [place] [address] 31y, F Registration Date/Time: 11/30/2016 Weight: 88.4 kg Height/Length: 69 in. BMI: 28.8 ALLERGIES: Azithromycin, Penicillins, Sulfa Antibiotics The patient's Home Medications are listed below: CONTINUE TAKING THE FOLLOWING MEDICATIONS: Citalopram Hydrobromide Oral (40 mg) 1 tablet, daily Doxycycline Hyclate Oral, twice daily, ear/sinus infection The source(s) of the original Home Medication information: Not obtained. The following Medications were given to the patient in the Emergency Department: Morphine [IVP] IVP 4 mg, administered: 11/30/2016 3:36:00 AM IV NS IV Fluids bolus 1000 mL wide open, administered: 11/30/2016 3:37:00 AM Morphine [IVP] IVP 8 mg, administered: 11/30/2016 4:28:00 AM The following Medications were prescribed to the patient: Zofran (orally disintegrating tablets) 4 mg: take 1 orally every 8 hours as needed for nausea and vomiting. Dispense ten (10). No refill. Substitution is permissible. -- Black Chapa Dr. Percocet 5 mg/325 mg: take 1 tablet orally every 6 hours as needed for pain. Dispense twenty (20). No refill. Substitution is permissible. -- Black Chapa Dr.
--- NOTE | 2016-12-07 02:48 | ED MAR SUMMARY ---
..... Medication Administration Record [facility] [address] [place] [address] Patient: BIRD HENAO Visit ID: [id number] 31y, F Weight: 88.4 kg Height/Length: 69 in BMI: 28.8 ALLERGIES: Azithromycin, Sulfa Antibiotics, Penicillins Given 03:36 11/30/2016 Stephanie Henry, Medication Administered: MORPHINE [IVP], Dose: 4 mg IVP, Site: #1 left AC. Medication Ordered: Morphine IV 4 mg (HIGH ALERT MEDICATION, NOW). Start 03:37 11/30/2016 Stephanie Henry,, Stop 05:18 11/30/2016 Elizabeth Rowley RChantalNChantal Medication Administered: IV NS (SALINE), Dose: IV Fluids, Bolus: 1000 mL wide open, Dispensed: 1000 mL bag, Site: #1 left AC. Medication Ordered: IV NS : initial bolus 1000 mL (1000 mL/hr), then none - for X1 (NOW). Given 04:28 11/30/2016 Elizabeth Rowley RChantalNChantal Medication Administered: MORPHINE [IVP], Dose: 8 mg IVP over 3 minute(s), Site: #1 left AC. Medication Ordered: Morphine IV 8 mg (HIGH ALERT MEDICATION, NOW).
[2017-01-31] MEDS ORDERED: CITALOPRAM HYDR40 MG PO (16:29)
== END 2016-11-30 06:54 | disposition home or self-care (01) ==
LOC: ED SRH 02:52
DX: O03.4 Incomplete spontaneous abortion without complication (principal); Z3A.12 12 weeks gestation of pregnancy; Z88.0 Allergy status to penicillin; Z88.2 Allergy status to sulfonamides
CPT/HCPCS: 90001; 90100; 90155; 90195; 90197; 91004; 91227; 91228; 94001; 94060; 95059

== ENCOUNTER 2016-12-06 15:30 | Emergency (ER) | payer OTHER ==
--- NOTE | 2016-12-06 17:18 | DIAGNOSTIC IMAGING REPORT ---
PROCEDURE: US COMPLETE PELVIC W/TRANSVAG INDICATION: Recent demise with continued cramping and bleeding TECHNIQUE: Transabdominal and endovaginal andersen scale and color Doppler sonographic images of the female pelvis were obtained. COMPARISON: Pelvic ultrasound 11/30/2016 FINDINGS: TRANSABDOMINAL SCANS: There is a cystic structure in the lower uterine segment. Ovaries are unremarkable. Normal kidneys. TRANSVAGINAL SCANS: There is an elongated gestational sac in the lower uterine segment with what appears to be a pole without cardiac activity. There is also an ovoid structure along the posterior aspect of this collection with some vascularity. There is also vascularity of the fundal portion of the endometrium. Overall, no significant interval change. IMPRESSION: 1. demise in the lower uterine segment with vascular endometrium suggestive of retained products of conception 2. Results discussed with Jacquelyn Boateng
--- NOTE | 2016-12-06 17:45 | ED NURSING NOTES ---
Clinical Report - Nurses [facility] [place] [address] 12/06/2016 15:31 Patient: BIRD HENAO TRIAGE Triage time 15:51. Acuity: LEVEL 3. Chief Complaint: ABDOMINAL PAIN and CRAMPS and VAGINAL BLEEDING and (November 14 demise. Miscarriage has been ongoing. Today the abd pain, cramps, and bleeding has gotten much worse.). 15:54 12/06/16. --15:58 Kalen Ayon R.N. 15:51 12/06/16. BP: 121/65. HR: 91. RR: 20. O2 saturation: 99%. Temp: 98.7 F (oral). Pain level now: 9/10. --15:58 Kalen Ayon R.N. 15:58 12/06/16. SEPSIS SCREEN: Sepsis Screen. Negative (no infection suspected/documented). --15:58 Kalen Ayon R.N. Weight: 88.4 kg stated. Height/Length: 69 inches Per Patient. BMI: 28.8. --15:53 Kalen Ayon R.N. Medications Citalopram Hydrobromide Oral (Tablet 40 mg) 1 tablet, daily. Doxycycline Hyclate Oral, twice daily, ear/sinus infection. --15:51 Kalen Ayon R.N. Allergies Azithromycin. (medication reaction to Citalopram) Penicillins. Sulfa Antibiotics. --15:51 Kalen Ayon R.N. History ( Pt states she feels like she might have a fever now.). ( Nausea (new sx)). No vomiting. PAST MEDICAL HX: OB history: G 4; P 1. SOCIAL HX: Never smoker. Occasional alcohol use. No drug use. ABUSE ASSESSMENT: No report of abuse. --15:58 Kalen Ayon R.N. PROBLEMS: . Depression. Chronic Headache. Immunizations. . Anxiety Reaction. Migraine Headache. --15:51 Kalen Ayon R.N. ADDITIONAL SURGERIES: Adenoidectomy. . Slap lesion repair. Tonsillectomy. Tonsillectomy & Adenoidectomy. --15:51 Kalen Ayon R.N. Interventions ID band on patient. To treatment room. --15:58 Kalen Ayon R.N. PHYSICAL ASSESSMENT 16:00 12/06/16. Ambulatory to room. GENERAL / NEURO / PSYCH: Alert. Oriented X 4. Appears in pain. HEENT: Mucous membranes are pink. RESPIRATORY: Respirations not labored. Breath sounds within normal limits. CVS: Normal heart rate and rhythm. Capillary refill less than 2 seconds. GI / : Abdominal distention. Vaginal bleeding present (copious per pt.). EXTREMITIES: No lower extremity edema. SKIN: Skin is warm and dry. --16:04 Kalen Ayon R.N. NURSING PROGRESS NOTES 16:00. Patient gowned. Head of bed elevated. Reassurance given. Two patient identifiers checked. Call light placed in reach. Bed placed in lowest position. Brakes of bed on. Patient ready for evaluation- chart flagged. --16:05 Kalen Ayon R.N. 16:25 12/06/2016 Toradol (Ketorolac Tromethamine) IM 60 mg given. Given in the right deltoid. Allergies verified and confirmed 5 rights. --16:28 Kalen Ayon R.N. 16:28 12/06/16. ( US at the bedside now.). --16:28 Kalen Ayon R.N. 17:40 12/06/16. PELVIC EXAM: Pelvic exam performed by LIME SLAKER. Assisted by one nurse. Preparation: patient placed in lithotomy position. Procedure: speculum exam. Status post-procedure: she was stable and no complications were noted. Total time of assist / procedure: (5 minutes). --17:41 Paola Kenney R.N. DISPOSITION / DISCHARGE Departure time: 1751. Condition at departure: improved. No learning barriers present. Reviewed referral to family practice for followup. Work note given. Patient and whipped topping mixer verbalized understanding. Written instructions provided. The patient was discharged home and accompanied by whipped topping mixer. She left the Emergency Department ambulatory and via private vehicle. --18:26 Paola Kenney R.N. 17:52 12/06/16. BP: 109/58. HR: 81. RR: 18. O2 saturation: 98%. Pain level now: 01/19. --18:26 Paola Kenney R.N. Locked/Released at 12/06/2016 18:26 by Paola Kenney R.N.
--- NOTE | 2016-12-06 17:45 | ED ORDER SUMMARY ---
..... Patient: BIRD HENAO OrderSheet [facility] VisitID: [id number] [place] [address] 31y, F Registration Date/Time: 12/06/2016 ORDER SHEET Weight: 88.4 kg (stated) Allergies: Azithromycin, Penicillins, Sulfa Antibiotics GENERAL ORDERS: US Pelvic Complete w Transvag Urgent (16:14 12/06/2016 HBivens A.R.N.P.) (Ack 16:31 LTapper) (17:47 LSullivan R.N.) CBC w Diff Urgent (16:14 12/06/2016 HBivens A.R.N.P.) (Ack 16:31 LTapper) (16:36 LTapper) BMP Urgent (16:14 12/06/2016 HBivens A.R.N.P.) (Ack 16:31 LTapper) (16:36 LTapper) Serum Quantitative Urgent (16:14 12/06/2016 HBivens A.R.N.P.) (Ack 16:31 LTapper) (16:37 LTapper) Pelvic Exam Setup (16:14 12/06/2016 HBivens A.R.N.P.) (17:47 LSullivan R.N.) MEDICATION ORDERS: Toradol IM 60 mg (NOW) (16:14 12/06/2016 HBivens A.R.N.P.) (16:28 JSimbeck R.N.) IV FLUIDS: ORDER SHEET NOTES: [Electronically signed by Paola Kenney R.N. (18:26 12/06/2016)] [Electronically signed by Jacquelyn BoatengR.N.P. (20:21 12/06/2016)] [Electronically locked/signed by Paola Kenney R.N. (18:26 12/06/2016)]
--- NOTE | 2016-12-06 17:45 | ED CLINICAL REPORT ---
Clinical Report - Physicians/Mid Levels [facility] [address] [place] [address] 12/06/2016 15:31 Patient: BIRD HENAO Time Seen: 15:51; initial patient contact, initial documentation, patient care assumed. Arrived- By private vehicle. Historian- patient. RETURN VISIT: recently seen in this ED by another ED physician. Seen now for the same problem as before. HISTORY OF PRESENT ILLNESS Chief Complaint: PELVIC PAIN and VAGINAL BLEEDING. This started just prior to arrival and still present. The symptoms are described as severe. Modifying factors. Not worsened by anything. Not relieved by anything. The patient has had severe, crampy right-sided, suprapubic and left-sided pelvic pain, described as "pain". She has had abnormal bleeding described as heavier than normal period says the bleeding has been intermittent since Sep. No vaginal pain, low back pain, flank pain, pain with urination or urinary frequency. No urgency of urination or hematuria. Sexually active. Currently . G 4. P 1. Ab 3. Similar symptoms previously: Milder. Recent medical care: The patient was seen recently at this facility in the emergency department and office. ( txed here 07/31 for same thing, dx with incomplete , went to Dr Sapp today, no exam done, he just talked to me, gave rx of something to help facilitate the miscarriage, but rx was not filled yet, pain and bleeding got worse, so came here). REVIEW OF SYSTEMS No nausea, vomiting, diarrhea, fever or difficulty breathing. No chest pain. She has had mild transient dizziness described as a light-headedness. She has had new onset of generalized weakness. All systems otherwise negative, except as recorded above. PAST HISTORY See nurses notes. ( PROBLEMS: . Depression. Chronic Headache. Immunizations. . Anxiety Reaction. Migraine Headache. --15:51 Kalen Ayon R.N. ADDITIONAL SURGERIES: Adenoidectomy. . Slap lesion repair. Tonsillectomy. Tonsillectomy & Adenoidectomy. --15:51 Kalen Ayon R.N.). SOCIAL HISTORY Never smoker. Occasional alcohol use. No drug use. No recent travel. Is a local resident. FAMILY HISTORY Negative. ADDITIONAL NOTES The nursing notes have been reviewed with agreement regarding the chief complaint, HPI, ROS, PMH and patient medications and allergies. PHYSICAL EXAM Vital Signs: 12/06/2016 15:51 BP: 121/65. HR: 91. RR: 20. O2 saturation: 99%. Temp: 98.7 F. Pain level now: 10. Have been reviewed as normal and appear to be correct. Appearance: Alert. Oriented X3. No acute distress. HEENT: Normal external inspection. ENT: Pharynx normal. Neck: Neck supple. CVS: Heart sounds normal. Respiratory: No respiratory distress. Breath sounds normal. Chest nontender. Abdomen: Soft and nontender. Bowel sounds normal. No organomegaly. No mass. Back: Normal external inspection. : External inspection abnormal. Moderate vaginal bleeding, consisting of bright red blood, via the cervical os. No vaginal bleeding from a cervical lesion or vaginal laceration. No vaginal discharge. Cervical os closed. No tissue present. No cervicitis. No herpes-like lesions. (bimanual deferred). Skin: Skin warm and dry. Normal skin color. No rash. Normal skin turgor. Extremities: Extremities nontender. No lower extremity edema. Neuro: Oriented X 3. Mood/affect normal. No motor deficit. LABS, X-RAYS, AND EKG Pelvic Sonogram: . verbal report from [facility] POC. The study was discussed with the radiologist. Interpretation time: 1650. Laboratory Tests: CBC w Diff: (QUANG: 12/06/2016 16:33) ( MsgRcvd 12/06/2016 16:56) Final results Test Result Flag Units (Reference) WHITE BLOOD COUNT 8.7 K/uL (4.5-11.5) RED BLOOD COUNT 3.86 L M/uL (4.00-5.20) HEMOGLOBIN 11.7 L gm/dL (12.0-16.0) HEMATOCRIT 35.4 L % (36.0-46.0) MEAN CELL VOLUME 92 fL (80-100) MEAN CORPUSCULAR HGB 30 pg (26-34) MEAN CORPUSCULAR HGB CONC 33 g/dL (31-37) RED CELL DISTRIBUTION WIDTH 13.1 % (11.6-14.8) PLATELET COUNT 245 K/uL (150-400) NEUTROPHIL % 62.8 % (50-75) LYMPH % 26.8 % (25-40) MONO % 7.7 % (3-14) EOSINOPHIL % 2.4 % (0-4) BASOPHIL % 0.3 % (0-2) BMP: (QUANG: 12/06/2016 16:33) ( MsgRcvd 12/06/2016 17:23) Final results Test Result Flag Units (Reference) GLUCOSE 107 mg/dL (70-110) BUN 15 mg/dL (7-18) CREATININE 0.8 mg/dL (0.6-1.3) Estimated GFR >60 mL/min Estimated GFR- >60 mL/min Note: Persistent reduction over 3 months in eGFR<60 mL/min/1.73 m2 defines CKD. Patients with eGFR values>=60 mL/min/1.73 m2 may also have CKD if evidence ofpersistent proteinuria. Additional information may be foundat www.kidney.org. SODIUM 143 mmol/L (136-145) POTASSIUM 3.7 mmol/L (3.5-5.1) CHLORIDE 106 mmol/L (98-107) CARBON DIOXIDE 28 mmol/L (21-32) CALCIUM 9.1 mg/dL (8.5-10.1) BETA HCG, QUANTITATIVE 289 mIU/mL REFERENCE RANGE:Adult Males: <2 mIU/mLNon- Females: <6 mIU/mL Females:Approximate Approximate hCGGestational Age Range (mIU/mL) 0-1 week 0-501-2 weeks 40-3002-3 weeks 100-45953-9 weeks 500-10205-4 months 5,000-200,0002-3 months 10,000-100,0002nd trimester 3,000-50,0003rd trimester 1,000-50,000 . PROGRESS AND PROCEDURES Course of Care: ER visit reviewed H&H 12.5/37.2 Quant 759 Rh O+ 1735. pelvic exam finally done with rn khloe Guevara pt has pain meds and nausea meds at home. Discussed case with patient's primary care provider, (call returned [phone] Dr Senait Mar pt to stay on current course, get rx filled to promote expelling poc, pain meds, and f/u with him). Reviewed test results. Agreed upon treatment plan. Health care provider will see patient in office. Patient counseled in person regarding the patient's stable condition, test results and diagnosis. 17:33. Differential Diagnosis: I considered uterine fibroids, uterine cancer, intrauterine , incomplete , threatened , retained products of and endometritis as a possible cause of vaginal bleeding in this patient. This is a partial list of diagnoses considered. Above considerations are based on history, physical exam, laboratory data and other information. Differential diagnosis was discussed with patient. Disposition: Discharged home in good and unchanged condition (17:45). Condition: good and stable. CLINICAL IMPRESSION Incomplete spontaneous (miscarriage). Positive test in the emergency department.No complications. INSTRUCTIONS Do not work today, for two days. (get prescription filled and take as directed and discussed). Warnings: GENERAL WARNINGS: Return or contact your physician immediately if your condition worsens or changes unexpectedly, if not improving as expected, or if other problems arise. Specifically return if fever worsens. Follow-up: Follow up with your doctor in about three days even if well. Call for an appointment. Summary of care provided to patient. Understanding of the discharge instructions verbalized by patient. (Electronically signed by Jacquelyn Boateng A.R.N.P. 12/06/2016 20:21)
--- NOTE | 2016-12-06 17:45 | ED CLINICAL REPORT ---
Clinical Report - Physicians/Mid Levels [facility] [address] [place] [address] 12/06/2016 15:31 Patient: BIRD HENAO Time Seen: 15:51; initial patient contact, initial documentation, patient care assumed. Arrived- By private vehicle. Historian- patient. RETURN VISIT: recently seen in this ED by another ED physician. Seen now for the same problem as before. HISTORY OF PRESENT ILLNESS Chief Complaint: PELVIC PAIN and VAGINAL BLEEDING. This started just prior to arrival and still present. The symptoms are described as severe. Modifying factors. Not worsened by anything. Not relieved by anything. The patient has had severe, crampy right-sided, suprapubic and left-sided pelvic pain, described as "pain". She has had abnormal bleeding described as heavier than normal period says the bleeding has been intermittent since Sep. No vaginal pain, low back pain, flank pain, pain with urination or urinary frequency. No urgency of urination or hematuria. Sexually active. Currently . G 4. P 1. Ab 3. Similar symptoms previously: Milder. Recent medical care: The patient was seen recently at this facility in the emergency department and office. ( txed here 07/31 for same thing, dx with incomplete , went to Dr Sapp today, no exam done, he just talked to me, gave rx of something to help facilitate the miscarriage, but rx was not filled yet, pain and bleeding got worse, so came here). REVIEW OF SYSTEMS No nausea, vomiting, diarrhea, fever or difficulty breathing. No chest pain. She has had mild transient dizziness described as a light-headedness. She has had new onset of generalized weakness. All systems otherwise negative, except as recorded above. PAST HISTORY See nurses notes. ( PROBLEMS: . Depression. Chronic Headache. Immunizations. . Anxiety Reaction. Migraine Headache. --15:51 Kalen Ayon R.N. ADDITIONAL SURGERIES: Adenoidectomy. . Slap lesion repair. Tonsillectomy. Tonsillectomy & Adenoidectomy. --15:51 Kalen Ayon R.N.). SOCIAL HISTORY Never smoker. Occasional alcohol use. No drug use. No recent travel. Is a local resident. FAMILY HISTORY Negative. ADDITIONAL NOTES The nursing notes have been reviewed with agreement regarding the chief complaint, HPI, ROS, PMH and patient medications and allergies. PHYSICAL EXAM Vital Signs: 12/06/2016 15:51 BP: 121/65. HR: 91. RR: 20. O2 saturation: 99%. Temp: 98.7 F. Pain level now: 10. Have been reviewed as normal and appear to be correct. Appearance: Alert. Oriented X3. No acute distress. HEENT: Normal external inspection. ENT: Pharynx normal. Neck: Neck supple. CVS: Heart sounds normal. Respiratory: No respiratory distress. Breath sounds normal. Chest nontender. Abdomen: Soft and nontender. Bowel sounds normal. No organomegaly. No mass. Back: Normal external inspection. : External inspection abnormal. Moderate vaginal bleeding, consisting of bright red blood, via the cervical os. No vaginal bleeding from a cervical lesion or vaginal laceration. No vaginal discharge. Cervical os closed. No tissue present. No cervicitis. No herpes-like lesions. (bimanual deferred). Skin: Skin warm and dry. Normal skin color. No rash. Normal skin turgor. Extremities: Extremities nontender. No lower extremity edema. Neuro: Oriented X 3. Mood/affect normal. No motor deficit. LABS, X-RAYS, AND EKG Pelvic Sonogram: . verbal report from Silent Herdsman Sana montanez POC. The study was discussed with the radiologist. Interpretation time: 1650. Laboratory Tests: CBC w Diff: (QUANG: 12/06/2016 16:33) ( MsgRcvd 12/06/2016 16:56) Final results Test Result Flag Units (Reference) WHITE BLOOD COUNT 8.7 K/uL (4.5-11.5) RED BLOOD COUNT 3.86 L M/uL (4.00-5.20) HEMOGLOBIN 11.7 L gm/dL (12.0-16.0) HEMATOCRIT 35.4 L % (36.0-46.0) MEAN CELL VOLUME 92 fL (80-100) MEAN CORPUSCULAR HGB 30 pg (26-34) MEAN CORPUSCULAR HGB CONC 33 g/dL (31-37) RED CELL DISTRIBUTION WIDTH 13.1 % (11.6-14.8) PLATELET COUNT 245 K/uL (150-400) NEUTROPHIL % 62.8 % (50-75) LYMPH % 26.8 % (25-40) MONO % 7.7 % (3-14) EOSINOPHIL % 2.4 % (0-4) BASOPHIL % 0.3 % (0-2) BMP: (QUANG: 12/06/2016 16:33) ( MsgRcvd 12/06/2016 17:23) Final results Test Result Flag Units (Reference) GLUCOSE 107 mg/dL (70-110) BUN 15 mg/dL (7-18) CREATININE 0.8 mg/dL (0.6-1.3) Estimated GFR >60 mL/min Estimated GFR- >60 mL/min Note: Persistent reduction over 3 months in eGFR<60 mL/min/1.73 m2 defines CKD. Patients with eGFR values>=60 mL/min/1.73 m2 may also have CKD if evidence ofpersistent proteinuria. Additional information may be foundat www.kidney.org. SODIUM 143 mmol/L (136-145) POTASSIUM 3.7 mmol/L (3.5-5.1) CHLORIDE 106 mmol/L (98-107) CARBON DIOXIDE 28 mmol/L (21-32) CALCIUM 9.1 mg/dL (8.5-10.1) BETA HCG, QUANTITATIVE 289 mIU/mL REFERENCE RANGE:Adult Males: <2 mIU/mLNon- Females: <6 mIU/mL Females:Approximate Approximate hCGGestational Age Range (mIU/mL) 0-1 week 0-501-2 weeks 40-3002-3 weeks 100-91677-5 weeks 500-26100-5 months 5,000-200,0002-3 months 10,000-100,0002nd trimester 3,000-50,0003rd trimester 1,000-50,000 . PROGRESS AND PROCEDURES Course of Care: ER visit reviewed H&H 12.5/37.2 Quant 759 Rh O+ 1735. pelvic exam finally done with rn khloe Guevara pt has pain meds and nausea meds at home. Discussed case with patient's primary care provider, (call returned [phone] Dr Senait Mar pt to stay on current course, get rx filled to promote expelling poc, pain meds, and f/u with him). Reviewed test results. Agreed upon treatment plan. Health care provider will see patient in office. Patient counseled in person regarding the patient's stable condition, test results and diagnosis. 17:33. Differential Diagnosis: I considered uterine fibroids, uterine cancer, intrauterine , incomplete , threatened , retained products of and endometritis as a possible cause of vaginal bleeding in this patient. This is a partial list of diagnoses considered. Above considerations are based on history, physical exam, laboratory data and other information. Differential diagnosis was discussed with patient. Disposition: Discharged home in good and unchanged condition (17:45). Condition: good and stable. CLINICAL IMPRESSION Incomplete spontaneous (miscarriage). Positive test in the emergency department.No complications. INSTRUCTIONS Do not work today, for two days. (get prescription filled and take as directed and discussed). Warnings: GENERAL WARNINGS: Return or contact your physician immediately if your condition worsens or changes unexpectedly, if not improving as expected, or if other problems arise. Specifically return if fever worsens. Follow-up: Follow up with your doctor in about three days even if well. Call for an appointment. Summary of care provided to patient. Understanding of the discharge instructions verbalized by patient. (Electronically signed by Jacquelyn Boateng A.R.N.P. 12/06/2016 20:21)
--- NOTE | 2016-12-06 17:45 | ED NURSING NOTES ---
Clinical Report - Nurses [facility] [place] [address] 12/06/2016 15:31 Patient: BIRD HENAO TRIAGE Triage time 15:51. Acuity: LEVEL 3. Chief Complaint: ABDOMINAL PAIN and CRAMPS and VAGINAL BLEEDING and (November 14 demise. Miscarriage has been ongoing. Today the abd pain, cramps, and bleeding has gotten much worse.). 15:54 12/06/16. --15:58 Kalen Ayon R.N. 15:51 12/06/16. BP: 121/65. HR: 91. RR: 20. O2 saturation: 99%. Temp: 98.7 F (oral). Pain level now: 9/10. --15:58 Kalen Ayon R.N. 15:58 12/06/16. SEPSIS SCREEN: Sepsis Screen. Negative (no infection suspected/documented). --15:58 Kalen Ayon R.N. Weight: 88.4 kg stated. Height/Length: 69 inches Per Patient. BMI: 28.8. --15:53 Kalen Ayon R.N. Medications Citalopram Hydrobromide Oral (Tablet 40 mg) 1 tablet, daily. Doxycycline Hyclate Oral, twice daily, ear/sinus infection. --15:51 Kalen Ayon R.N. Allergies Azithromycin. (medication reaction to Citalopram) Penicillins. Sulfa Antibiotics. --15:51 Kalen Ayon R.N. History ( Pt states she feels like she might have a fever now.). ( Nausea (new sx)). No vomiting. PAST MEDICAL HX: OB history: G 4; P 1. SOCIAL HX: Never smoker. Occasional alcohol use. No drug use. ABUSE ASSESSMENT: No report of abuse. --15:58 Kalen Ayon R.N. PROBLEMS: . Depression. Chronic Headache. Immunizations. . Anxiety Reaction. Migraine Headache. --15:51 Kalen Ayon R.N. ADDITIONAL SURGERIES: Adenoidectomy. . Slap lesion repair. Tonsillectomy. Tonsillectomy & Adenoidectomy. --15:51 Kalen Ayon R.N. Interventions ID band on patient. To treatment room. --15:58 Kalen Ayon R.N. PHYSICAL ASSESSMENT 16:00 12/06/16. Ambulatory to room. GENERAL / NEURO / PSYCH: Alert. Oriented X 4. Appears in pain. HEENT: Mucous membranes are pink. RESPIRATORY: Respirations not labored. Breath sounds within normal limits. CVS: Normal heart rate and rhythm. Capillary refill less than 2 seconds. GI / : Abdominal distention. Vaginal bleeding present (copious per pt.). EXTREMITIES: No lower extremity edema. SKIN: Skin is warm and dry. --16:04 Kalen Ayon R.N. NURSING PROGRESS NOTES 16:00. Patient gowned. Head of bed elevated. Reassurance given. Two patient identifiers checked. Call light placed in reach. Bed placed in lowest position. Brakes of bed on. Patient ready for evaluation- chart flagged. --16:05 Kalen yAon R.N. 16:25 12/06/2016 Toradol (Ketorolac Tromethamine) IM 60 mg given. Given in the right deltoid. Allergies verified and confirmed 5 rights. --16:28 Kalen Ayon R.N. 16:28 12/06/16. ( US at the bedside now.). --16:28 Kalen Ayon R.N. 17:40 12/06/16. PELVIC EXAM: Pelvic exam performed by HEALTH OCCUPATIONS INSTRUCTOR. Assisted by one nurse. Preparation: patient placed in lithotomy position. Procedure: speculum exam. Status post-procedure: she was stable and no complications were noted. Total time of assist / procedure: (5 minutes). --17:41 Paola Kenney R.N. DISPOSITION / DISCHARGE Departure time: 1751. Condition at departure: improved. No learning barriers present. Reviewed referral to family practice for followup. Work note given. Patient and rawhide bone roller verbalized understanding. Written instructions provided. The patient was discharged home and accompanied by rawhide bone roller. She left the Emergency Department ambulatory and via private vehicle. --18:26 Paola Kenney R.N. 17:52 12/06/16. BP: 109/58. HR: 81. RR: 18. O2 saturation: 98%. Pain level now: 01/19. --18:26 Paola Kenney R.N. Locked/Released at 12/06/2016 18:26 by Paola Kenney R.N.
--- NOTE | 2016-12-06 17:45 | ED ORDER SUMMARY ---
..... Patient: BIRD HENAO OrderSheet [facility] VisitID: [id number] [place] [address] 31y, F Registration Date/Time: 12/06/2016 ORDER SHEET Weight: 88.4 kg (stated) Allergies: Azithromycin, Penicillins, Sulfa Antibiotics GENERAL ORDERS: US Pelvic Complete w Transvag Urgent (16:14 12/06/2016 HBivens A.R.N.P.) (Ack 16:31 LTapper) (17:47 LSullivan R.N.) CBC w Diff Urgent (16:14 12/06/2016 HBivens A.R.N.P.) (Ack 16:31 LTapper) (16:36 LTapper) BMP Urgent (16:14 12/06/2016 HBivens A.R.N.P.) (Ack 16:31 LTapper) (16:36 LTapper) Serum Quantitative Urgent (16:14 12/06/2016 HBivens A.R.N.P.) (Ack 16:31 LTapper) (16:37 LTapper) Pelvic Exam Setup (16:14 12/06/2016 HBivens A.R.N.P.) (17:47 LSullivan R.N.) MEDICATION ORDERS: Toradol IM 60 mg (NOW) (16:14 12/06/2016 HBivens A.R.N.P.) (16:28 JSimbeck R.N.) IV FLUIDS: ORDER SHEET NOTES: [Electronically signed by Paola Kenney R.N. (18:26 12/06/2016)] [Electronically signed by Jacquelyn BoatengR.N.P. (20:21 12/06/2016)] [Electronically locked/signed by Paola Kenney R.N. (18:26 12/06/2016)]
--- NOTE | 2016-12-06 20:22 | ED DISCHARGE INSTRUCTIONS ---
Patient: BIRD HENAO General Instructions [facility] VisitID: [id number] [place] [address] 31y, F Registration Date/Time: 12/06/2016 Incomplete spontaneous (miscarriage). Positive test in the emergency department.No complications. INSTRUCTIONS Do not work today, for two days. (get prescription filled and take as directed and discussed). Warnings: GENERAL WARNINGS: Return or contact your physician immediately if your condition worsens or changes unexpectedly, if not improving as expected, or if other problems arise. Specifically return if fever worsens. Follow-up: Follow up with your doctor in about three days even if well. Call for an appointment. Summary of care provided to patient. Understanding of the discharge instructions verbalized by patient. ADDITIONAL INFORMATION Miscarriage, Spontaneous (Completed) Todays exam shows that your has ended suddenly. While this may be an emotionally difficult time for you, know that it is not an uncommon event. A miscarriage can be due to various causes. These include a problem with the babys chromosomes (genes that carry the information needed for life) or with fertilization or implantation that didnt happen correctly. In most cases no cause can be found. Be assured that this miscarriage was not the result of anything that you did wrong, and it will not interfere with your ability to become in the future. It appears that your miscarriage is complete and all tissue from the has passed. If there are parts of the tissue that remain in the uterus, you will probably have more cramping and bleeding. Home Care: You may resume normal activities if you are not having heavy bleeding or pain. Until the bleeding stops completely and to prevent infection: Do not have sexual intercourse for as long as your healthcare provider tells you. Use sanitary pads instead of tampons. Do not douche. If you feel sadness or grief, it may help to talk about your feelings with family and friends, or with a counselor. Follow Up: Make an appointment to see your doctor in the next one to two weeks for a checkup. If cramping and bleeding return and continue for more than a few days, call your doctor or return here for an exam. The doctor may need to remove remaining tissue from the uterus to stop the bleeding and prevent infection. Or, you may be prescribed medication to take at home to help your body expel the remaining tissue. Note: If you had an ultrasound it will be reviewed by a specialist. You will be notified of any new findings that may affect your care. Get Prompt Medical Attention if any of the following occur: Heavy bleeding (soaking one new pad an hour over three hours) Bleeding that does not stop after ten days Foul-smelling vaginal discharge Fever of 100.4F (38C) or higher, or as directed by your healthcare provider Increasing lower abdominal pain Weakness, dizziness, or fainting You have been given the following additional information: Miscarriage, Spontaneous (Completed) Do not work today, for two days. (Electronically signed by Jacquelyn Boateng A.R.N.P. 12/06/2016 20:21)
--- NOTE | 2016-12-06 20:23 | ED MED RECONCILIATION SUMMARY ---
Patient: BIRD HENAO Medication Reconciliation Report [facility] VisitID: [id number] [address] [place] [address] 31y, F Registration Date/Time: 12/06/2016 Weight: 88.4 kg Height/Length: 69 in. BMI: 28.8 ALLERGIES: Azithromycin, Penicillins, Sulfa Antibiotics The patient's Home Medications are listed below: THE FOLLOWING MEDICATIONS NEED TO BE RECONCILED: Citalopram Hydrobromide Oral (40 mg) 1 tablet, daily Doxycycline Hyclate Oral, twice daily, ear/sinus infection The source(s) of the original Home Medication information: Not obtained. The following Medications were given to the patient in the Emergency Department: Toradol [IM] IM 60 mg, administered: 12/06/2016 4:25:00 PM The following Medications were prescribed to the patient: None.
--- NOTE | 2016-12-06 20:23 | ED MAR SUMMARY ---
..... Medication Administration Record [facility] [address] [place] [address] Patient: BIRD HENAO Visit ID: [id number] 31y, F Weight: 88.4 kg Height/Length: 69 in BMI: 28.8 ALLERGIES: Azithromycin, Penicillins, Sulfa Antibiotics Given 16:25 12/06/2016 Kalen Ayon R.N. Medication Administered: TORADOL [IM] (KETOROLAC TROMETHAMINE), Dose: 60 mg IM. Medication Ordered: Toradol IM 60 mg (NOW).
--- NOTE | 2016-12-06 20:23 | ED MAR SUMMARY ---
..... Medication Administration Record [facility] [address] [place] [address] Patient: BIRD HENAO Visit ID: [id number] 31y, F Weight: 88.4 kg Height/Length: 69 in BMI: 28.8 ALLERGIES: Azithromycin, Penicillins, Sulfa Antibiotics Given 16:25 12/06/2016 Kalen Ayon R.N. Medication Administered: TORADOL [IM] (KETOROLAC TROMETHAMINE), Dose: 60 mg IM. Medication Ordered: Toradol IM 60 mg (NOW).
--- NOTE | 2016-12-06 20:23 | ED MED RECONCILIATION SUMMARY ---
Patient: BIRD HENAO Medication Reconciliation Report [facility] VisitID: [id number] [address] [place] [address] 31y, F Registration Date/Time: 12/06/2016 Weight: 88.4 kg Height/Length: 69 in. BMI: 28.8 ALLERGIES: Azithromycin, Penicillins, Sulfa Antibiotics The patient's Home Medications are listed below: THE FOLLOWING MEDICATIONS NEED TO BE RECONCILED: Citalopram Hydrobromide Oral (40 mg) 1 tablet, daily Doxycycline Hyclate Oral, twice daily, ear/sinus infection The source(s) of the original Home Medication information: Not obtained. The following Medications were given to the patient in the Emergency Department: Toradol [IM] IM 60 mg, administered: 12/06/2016 4:25:00 PM The following Medications were prescribed to the patient: None.
[2017-01-31] MEDS ORDERED: CITALOPRAM HYDR40 MG PO (16:29)
== END 2016-12-06 17:52 | disposition home or self-care (01) ==
LOC: ED SRH 15:30
DX: O03.4 Incomplete spontaneous abortion without complication (principal); Z3A.00 Weeks of gestation of pregnancy not specified; Z79.899 Other long term (current) drug therapy; Z88.0 Allergy status to penicillin; Z88.1 Allergy status to other antibiotic agents; Z88.2 Allergy status to sulfonamides
CPT/HCPCS: 90047; 90074; 90197; 95059

== ENCOUNTER 2016-12-07 15:44 | Emergency (ER) | payer OTHER ==
--- NOTE | 2016-12-07 17:42 | ED ORDER SUMMARY ---
..... Patient: BIRD HENAO OrderSheet [facility] VisitID: [id number] [place] [address] 31y, F Registration Date/Time: 12/07/2016 ORDER SHEET Weight: 88.4 kg (stated) Allergies: Azithromycin, Penicillins, Sulfa Antibiotics GENERAL ORDERS: CBC w Diff Urgent (16:12 12/07/2016 EKoroleva P.A.-C) (Ack 16:14 TBergley) (16:24 EHassan R.N.) CMP Urgent (16:12 12/07/2016 EKoroleva P.A.-C) (Ack 16:14 TBergley) (16:24 EHassan R.N.) Serum Quantitative Urgent (16:12 12/07/2016 EKoroleva P.A.-C) (Ack 16:14 TBergley) (16:24 EHassan R.N.) MEDICATION ORDERS: IV FLUIDS: IV NS : initial bolus 1000 mL (1000 mL/hr), then 1000 mL/hr for X1 (NOW); Orville (16:11 12/07/2016 EKoroleva P.A.-C) (16:25 EHassan R.N.) Dilaudid IV 1 mg (may repeat 1 mg in 15 mins, total of 2 mg) (16:12 12/07/2016 EKoroleva P.A.-C) (16:22 EHassan R.N.) ORDER SHEET NOTES: [Electronically signed by Stephanie Carter R.N. (17:59 12/07/2016)] [Electronically signed by Kacey Porras PChantalA.-C (18:08 12/07/2016)] [Electronically locked/signed by Stephanie Carter R.N. (17:59 12/07/2016)]
--- NOTE | 2016-12-07 17:42 | ED NURSING NOTES ---
Clinical Report - Nurses [facility] [place] [address] 12/07/2016 15:44 Patient: BIRD HENAO TRIAGE Triage time 1550 PM. Acuity: LEVEL 4. Chief Complaint: PELVIC PAIN and VAGINAL BLEED. Alert. No acute distress. SEPSIS SCREEN: Sepsis Screen. Negative (no infection suspected/documented). --15:58 Ann Grimes R.N. 15:51 12/07/16. BP: 121/93 (regular adult cuff) taken on the left arm, via an automated monitor, while sitting. HR: 103. RR: 22. O2 saturation: 100%. Temp: 98.8 F. Pain level now: 08/21. --15:58 Ann Grimes R.N. Weight: 88.4 kg stated. Height/Length: 69 inches Per Patient. BMI: 28.8. --15:54 Ann Grimes R.N. Medications Citalopram Hydrobromide Oral (Tablet 40 mg) 1 tablet, daily. Doxycycline Hyclate Oral, twice daily, ear/sinus infection. --15:55 Ann Grimes R.N. Medication/allergy information source: the patient. --15:58 Ann Grimes R.N. Allergies Azithromycin. (medication reaction to Citalopram) Penicillins. Sulfa Antibiotics. --15:55 Ann Grimes R.N. History Historian: patient. Primary physician (Dr. Griffin). ( Pt was 7 1/2 weeks , miscarriage with a pill given by Dr. Griffin office yesterday, taken today at 11 am, unbearable pain started at around 2 pm, Dr. Griffin suggested her come to ED due to her pain). This started today. Treatment WORD PROCESSOR: Took ibuprofen. (Percocet 1 tab and). PAST MEDICAL HX: Immunizations: up-to-date. SOCIAL HX: Never smoker. No alcohol use or drug use. No infectious disease exposure. ABUSE ASSESSMENT: No report of abuse. FALL RISK ASSESSMENT: Fall risk assessment completed. No fall risk identified. NUTRITIONAL RISK ASSESSMENT: The nutritional risk assessment revealed no deficiencies. FUNCTIONAL ASSESSMENT: Functional assessment: no impairments noted. LEARNING NEEDS ASSESSMENT: The learning needs assessment revealed no barriers. SKIN INTEGRITY ASSESSMENT: Skin integrity risk assessment completed. No skin integrity risk identified. --15:58 Ann Grimes R.N. PROBLEMS: Spontaneous (Miscarriage). OB History. . Depression. Chronic Headache. Immunizations. . Anxiety Reaction. Migraine Headache. --15:55 Ann Grimes R.N. ADDITIONAL SURGERIES: Adenoidectomy. . Slap lesion repair. Tonsillectomy. Tonsillectomy & Adenoidectomy. --15:55 Ann Grimes R.N. Interventions ID band on patient. --15:58 Ann Grimes R.N. PHYSICAL ASSESSMENT Ambulatory to room. GENERAL / NEURO / PSYCH: Alert. Oriented X 4. Appears in pain. HEENT: Mucous membranes are pink. RESPIRATORY: Respirations not labored. Breath sounds within normal limits. CVS: Capillary refill less than 2 seconds. GI / : Bowel sounds within normal limits. Moderate vaginal bleeding present with clots (Due to miscarriage). SKIN: Skin is warm and dry. --15:59 Ann Grimes R.N. NURSING PROGRESS NOTES The initial plan of care for this patient has been created This plan of care was discussed with the patient. Patient gowned. Warming measures: blanket applied. Reassurance given. Two patient identifiers checked. Call light placed in reach. Side rails up. Brakes of bed on. Brakes of chair on. Patient ready for evaluation- chart flagged. --15:59 Ann Grimes R.N. 16:22 12/07/2016 Site #1 started via IV in the right antecubital space with an 20g angiocath; one attempt. Blood drawn: rainbow set. Labeled in the presence of the patient and sent to the lab. Saline lock flushed. --16:22 Ann Grimes R.N. 16:22 12/07/2016 Dilaudid (HYDROmorphone HCl PF) IVP 1 mg given over 2 minute(s) via site #1. Allergies verified, confirmed 5 rights and sedative warning given to the patient. IV patency established. IV site checked: no pain, redness, or swelling. IV flushed thoroughly pre- and post-medication administration. IVP given by RN. --16:22 Ann Grimes R.N. 16:25 12/07/2016 Started bag #1 1000 mL IV Fluids IV NS (Saline); at 1000 mL/hr over 1 hour(s) via site #1 via dial-a-flow. Allergies verified and confirmed 5 rights. IV patency established. IV site checked: no pain, redness, or swelling. IV flushed thoroughly pre- and post-medication administration. --16:25 Ann Grimes R.N. Pulse oximeter placed on patient. Reassessment after medication administered. She has had no adverse reaction. Two patient identifiers checked. Call light placed in reach. Side rails up x 1. Bed placed in lowest position. Brakes of bed on. Brakes of chair on. --16:28 Ann Grimes R.N. 16:27 12/07/16. O2 saturation: 100%. --16:28 Ann Grimes R.N. Reassurance given. Reassessment after fluids administered, intervention and medication administered. She is calm and has had no adverse reaction. Overall patient status is improved- she states feels better. Two patient identifiers checked. Call light placed in reach. Side rails up x 1. Bed placed in lowest position. Brakes of bed on. Brakes of chair on. --17:32 Ann Grimes R.N. 17:31 12/07/16. BP: 119/71 taken on the right arm, while lying. HR: 79. RR: 16 (regular and unlabored). O2 saturation: 100%. Pain level now: 10. --17:32 Ann Grimes R.N. DISPOSITION / DISCHARGE 17:50 12/07/2016 IV Fluids IV NS Discontinued: bag #1 upon discharge. Total amount infused: 600 mL. IV patency established. IV site checked: no pain, redness, or swelling. IV flushed thoroughly. --17:57 Stephanie Carter R.N. 17:55 12/07/2016 Site #1 removed upon discharge. Catheter intact. Manual pressure and bandage applied. --17:57 Stephanie Carter R.N. 17:58 12/07/16. Condition at departure: improved and stable. The goals identified in the patient's plan of care were met. No learning barriers present. Reviewed medication(s) side effects, precautions, dosing and course information. Prescription(s) given to the patient. Patient verbalized understanding. Written instructions provided in Bol[place]ian. The patient was discharged home and accompanied by mechanical tech. She left the Emergency Department ambulatory and via private vehicle. Build And Deployment Engineer driving. --17:58 Stephanie Carter R.N. 17:31 12/07/16. BP: 119/71 taken on the right arm, while lying. HR: 79. RR: 16 (regular and unlabored). O2 saturation: 100%. Pain level now: 03/21. --17:58 Stephanie Carter R.N. Departure time: 17:58 Dec 07 2016. --17:58 Stephanie Carter R.N. Locked/Released at 12/07/2016 17:59 by Stephanie Carter R.N.
--- NOTE | 2016-12-07 17:42 | ED ORDER SUMMARY ---
..... Patient: BIRD HENAO OrderSheet [facility] VisitID: [id number] [place] [address] 31y, F Registration Date/Time: 12/07/2016 ORDER SHEET Weight: 88.4 kg (stated) Allergies: Azithromycin, Penicillins, Sulfa Antibiotics GENERAL ORDERS: CBC w Diff Urgent (16:12 12/07/2016 EKoroleva P.A.-C) (Ack 16:14 TBergley) (16:24 EHassan R.N.) CMP Urgent (16:12 12/07/2016 EKoroleva P.A.-C) (Ack 16:14 TBergley) (16:24 EHassan R.N.) Serum Quantitative Urgent (16:12 12/07/2016 EKoroleva P.A.-C) (Ack 16:14 TBergley) (16:24 EHassan R.N.) MEDICATION ORDERS: IV FLUIDS: IV NS : initial bolus 1000 mL (1000 mL/hr), then 1000 mL/hr for X1 (NOW); Orville (16:11 12/07/2016 EKoroleva P.A.-C) (16:25 EHassan R.N.) Dilaudid IV 1 mg (may repeat 1 mg in 15 mins, total of 2 mg) (16:12 12/07/2016 EKoroleva P.A.-C) (16:22 EHassan R.N.) ORDER SHEET NOTES: [Electronically signed by Stephanie Carter R.N. (17:59 12/07/2016)] [Electronically signed by Kacey Porras PChantalA.-C (18:08 12/07/2016)] [Electronically locked/signed by Stephanie Carter R.N. (17:59 12/07/2016)]
--- NOTE | 2016-12-07 17:42 | ED CLINICAL REPORT ---
Clinical Report - Physicians/Mid Levels [facility] [address] [place] [address] 12/07/2016 15:44 Patient: BIRD HENAO Time Seen: 16:14 Dec 07 2016. Arrived- By private vehicle. Historian- patient. HISTORY OF PRESENT ILLNESS Chief Complaint: PELVIC PAIN and VAGINAL BLEEDING. This started today and still present. (took meds to induce her miscairrage today at 11, then motrin and percocet at 2 pm, and now pain/ cramping, more clots/ bleeding. , with lmp about aug, about 7 weeks with a non viable iup). Recent medical care: The patient was seen recently in the emergency department and office (last seen by DR. Sapp office on 12/06/2016). REVIEW OF SYSTEMS No vomiting or enlarged lymph nodes. All systems otherwise negative, except as recorded above. PAST HISTORY Problems: Spontaneous (Miscarriage). OB History. . Depression. Chronic Headache. Immunizations. . Anxiety Reaction. Migraine Headache. Medications: Citalopram Hydrobromide Oral (Tablet 40 mg) 1 tablet, daily. Doxycycline Hyclate Oral, twice daily, ear/sinus infection. Allergies: Azithromycin. (medication reaction to Citalopram) Penicillins. Sulfa Antibiotics. SOCIAL HISTORY Never smoker. No alcohol use or drug use. ADDITIONAL NOTES The nursing notes have been reviewed. PHYSICAL EXAM Vital Signs: 12/07/2016 15:51 BP: 121/93. HR: 103. RR: 22. O2 saturation: 100%. Temp: 98.8 F. Pain level now: 10/10. Appearance: Alert. No acute distress. HEENT: Normal external inspection. ENT: Pharynx normal. CVS: Heart sounds normal. Respiratory: No respiratory distress. Breath sounds normal. Abdomen: Soft and nontender. Tenderness in the suprapubic area. Bowel sounds normal. Skin: Skin warm. Normal skin color. LABS, X-RAYS, AND EKG Laboratory Tests: CBC w Diff: (QUANG: 12/07/2016 16:15) ( MsgRcvd 12/07/2016 16:26) Final results Test Result Flag Units (Reference) WHITE BLOOD COUNT 12.8 H K/uL (4.5-11.5) RED BLOOD COUNT 3.80 L M/uL (4.00-5.20) HEMOGLOBIN 11.5 L gm/dL (12.0-16.0) HEMATOCRIT 34.4 L % (36.0-46.0) MEAN CELL VOLUME 91 fL (80-100) MEAN CORPUSCULAR HGB 30 pg (26-34) MEAN CORPUSCULAR HGB CONC 33 g/dL (31-37) RED CELL DISTRIBUTION WIDTH 13.2 % (11.6-14.8) PLATELET COUNT 268 K/uL (150-400) NEUTROPHIL % 73.5 % (50-75) LYMPH % 17.6 L % (25-40) MONO % 7.0 % (3-14) EOSINOPHIL % 1.7 % (0-4) BASOPHIL % 0.2 % (0-2) CMP: (QUANG: 12/07/2016 16:15) ( MsgRcvd 12/07/2016 16:55) Final results Test Result Flag Units (Reference) GLUCOSE 123 H mg/dL (70-110) BUN 13 mg/dL (7-18) CREATININE 1.0 mg/dL (0.6-1.3) Estimated GFR >60 mL/min Estimated GFR- >60 mL/min Note: Persistent reduction over 3 months in eGFR<60 mL/min/1.73 m2 defines CKD. Patients with eGFR values>=60 mL/min/1.73 m2 may also have CKD if evidence ofpersistent proteinuria. Additional information may be foundat [email or web address].org. SODIUM 141 mmol/L (136-145) POTASSIUM 3.7 mmol/L (3.5-5.1) CHLORIDE 105 mmol/L (98-107) CARBON DIOXIDE 23 mmol/L (21-32) CALCIUM 8.7 mg/dL (8.5-10.1) TOTAL PROTEIN 7.7 g/dL (6.4-8.2) ALBUMIN 3.7 g/dL (3.3-5.0) BILIRUBIN, TOTAL 0.4 mg/dL (0.0-1.0) ALKALINE PHOSPHATASE 88 U/L (46-116) AST (SGOT) 19 U/L (15-37) ALT (SGPT) 31 U/L (12-78) BETA HCG, QUANTITATIVE 265 mIU/mL REFERENCE RANGE:Adult Males: <2 mIU/mLNon- Females: <6 mIU/mL Females:Approximate Approximate hCGGestational Age Range (mIU/mL) 0-1 week 0-501-2 weeks 40-3002-3 weeks 100-70792-2 weeks 500-94419-2 months 5,000-200,0002-3 months 10,000-100,0002nd trimester 3,000-50,0003rd trimester 1,000-50,000 . PROGRESS AND PROCEDURES Course of Care: US and results reviewed from yesterday O pos Pelvic exam completed yesterday no new sx beyond worse of the same pain, at this time will forego exam as discussed with patient. Pt is rather stable. No further imaging required, and h/h stable. No tachycardia. Pain management in er accomplished, discussed taking 10 mg of Percocet for pain/ intermittent motrin in addition. NO sudden new changes/ pain. NO new SX/ on second pad today. 12/07/2016 17:31 BP: 119/71. HR: 79. RR: 16. O2 saturation: 100%. Pain level now: 5/10. Patient is stable. Symptoms better. Patient/family counseled. Disposition: Discharged. CLINICAL IMPRESSION Incomplete spontaneous (miscarriage). INSTRUCTIONS Drink plenty of fluids. (Double on your Percocet, and 2-3 hours after such take MOTRIN 800 mg). Prescription Medications: Percocet 10 mg/325 mg: take 1 tablet orally every 6 hours as needed for pain. Dispense ten (10). No refill. Substitution is permissible. Follow-up: Follow up with your doctor Sunday. (Electronically signed by Kacey Porras P.A.-C 12/07/2016 18:08)
--- NOTE | 2016-12-07 17:42 | ED NURSING NOTES ---
Clinical Report - Nurses [facility] [place] [address] 12/07/2016 15:44 Patient: BIRD HENAO TRIAGE Triage time 1550 PM. Acuity: LEVEL 4. Chief Complaint: PELVIC PAIN and VAGINAL BLEED. Alert. No acute distress. SEPSIS SCREEN: Sepsis Screen. Negative (no infection suspected/documented). --15:58 Ann Grimes R.N. 15:51 12/07/16. BP: 121/93 (regular adult cuff) taken on the left arm, via an automated monitor, while sitting. HR: 103. RR: 22. O2 saturation: 100%. Temp: 98.8 F. Pain level now: 08/21. --15:58 Ann Grimes R.N. Weight: 88.4 kg stated. Height/Length: 69 inches Per Patient. BMI: 28.8. --15:54 Ann Grimes R.N. Medications Citalopram Hydrobromide Oral (Tablet 40 mg) 1 tablet, daily. Doxycycline Hyclate Oral, twice daily, ear/sinus infection. --15:55 Ann Grimes R.N. Medication/allergy information source: the patient. --15:58 Ann Grimes R.N. Allergies Azithromycin. (medication reaction to Citalopram) Penicillins. Sulfa Antibiotics. --15:55 Ann Grimes R.N. History Historian: patient. Primary physician (Dr. Griffin). ( Pt was 7 1/2 weeks , miscarriage with a pill given by Dr. Griffin office yesterday, taken today at 11 am, unbearable pain started at around 2 pm, Dr. Griffin suggested her come to ED due to her pain). This started today. Treatment SEO ASSOCIATE: Took ibuprofen. (Percocet 1 tab and). PAST MEDICAL HX: Immunizations: up-to-date. SOCIAL HX: Never smoker. No alcohol use or drug use. No infectious disease exposure. ABUSE ASSESSMENT: No report of abuse. FALL RISK ASSESSMENT: Fall risk assessment completed. No fall risk identified. NUTRITIONAL RISK ASSESSMENT: The nutritional risk assessment revealed no deficiencies. FUNCTIONAL ASSESSMENT: Functional assessment: no impairments noted. LEARNING NEEDS ASSESSMENT: The learning needs assessment revealed no barriers. SKIN INTEGRITY ASSESSMENT: Skin integrity risk assessment completed. No skin integrity risk identified. --15:58 Ann Grimes R.N. PROBLEMS: Spontaneous (Miscarriage). OB History. . Depression. Chronic Headache. Immunizations. . Anxiety Reaction. Migraine Headache. --15:55 Ann Grimes R.N. ADDITIONAL SURGERIES: Adenoidectomy. . Slap lesion repair. Tonsillectomy. Tonsillectomy & Adenoidectomy. --15:55 Ann Grimes R.N. Interventions ID band on patient. --15:58 Ann Grimes R.N. PHYSICAL ASSESSMENT Ambulatory to room. GENERAL / NEURO / PSYCH: Alert. Oriented X 4. Appears in pain. HEENT: Mucous membranes are pink. RESPIRATORY: Respirations not labored. Breath sounds within normal limits. CVS: Capillary refill less than 2 seconds. GI / : Bowel sounds within normal limits. Moderate vaginal bleeding present with clots (Due to miscarriage). SKIN: Skin is warm and dry. --15:59 Ann Grimes R.N. NURSING PROGRESS NOTES The initial plan of care for this patient has been created This plan of care was discussed with the patient. Patient gowned. Warming measures: blanket applied. Reassurance given. Two patient identifiers checked. Call light placed in reach. Side rails up. Brakes of bed on. Brakes of chair on. Patient ready for evaluation- chart flagged. --15:59 Ann Grimes R.N. 16:22 12/07/2016 Site #1 started via IV in the right antecubital space with an 20g angiocath; one attempt. Blood drawn: rainbow set. Labeled in the presence of the patient and sent to the lab. Saline lock flushed. --16:22 Ann Grimes R.N. 16:22 12/07/2016 Dilaudid (HYDROmorphone HCl PF) IVP 1 mg given over 2 minute(s) via site #1. Allergies verified, confirmed 5 rights and sedative warning given to the patient. IV patency established. IV site checked: no pain, redness, or swelling. IV flushed thoroughly pre- and post-medication administration. IVP given by RN. --16:22 Ann Grimes R.N. 16:25 12/07/2016 Started bag #1 1000 mL IV Fluids IV NS (Saline); at 1000 mL/hr over 1 hour(s) via site #1 via dial-a-flow. Allergies verified and confirmed 5 rights. IV patency established. IV site checked: no pain, redness, or swelling. IV flushed thoroughly pre- and post-medication administration. --16:25 Ann Grimes R.N. Pulse oximeter placed on patient. Reassessment after medication administered. She has had no adverse reaction. Two patient identifiers checked. Call light placed in reach. Side rails up x 1. Bed placed in lowest position. Brakes of bed on. Brakes of chair on. --16:28 Ann Grimes R.N. 16:27 12/07/16. O2 saturation: 100%. --16:28 Ann Grimes R.N. Reassurance given. Reassessment after fluids administered, intervention and medication administered. She is calm and has had no adverse reaction. Overall patient status is improved- she states feels better. Two patient identifiers checked. Call light placed in reach. Side rails up x 1. Bed placed in lowest position. Brakes of bed on. Brakes of chair on. --17:32 Ann Grimes R.N. 17:31 12/07/16. BP: 119/71 taken on the right arm, while lying. HR: 79. RR: 16 (regular and unlabored). O2 saturation: 100%. Pain level now: 10. --17:32 Ann Grimes R.N. DISPOSITION / DISCHARGE 17:50 12/07/2016 IV Fluids IV NS Discontinued: bag #1 upon discharge. Total amount infused: 600 mL. IV patency established. IV site checked: no pain, redness, or swelling. IV flushed thoroughly. --17:57 Stephanie Carter R.N. 17:55 12/07/2016 Site #1 removed upon discharge. Catheter intact. Manual pressure and bandage applied. --17:57 Stephanie Carter R.N. 17:58 12/07/16. Condition at departure: improved and stable. The goals identified in the patient's plan of care were met. No learning barriers present. Reviewed medication(s) side effects, precautions, dosing and course information. Prescription(s) given to the patient. Patient verbalized understanding. Written instructions provided in Palauan. The patient was discharged home and accompanied by repairer sash and door. She left the Emergency Department ambulatory and via private vehicle. Lead Sharepoint Developer driving. --17:58 Stephanie Carter R.N. 17:31 12/07/16. BP: 119/71 taken on the right arm, while lying. HR: 79. RR: 16 (regular and unlabored). O2 saturation: 100%. Pain level now: 03/21. --17:58 Stephanie Carter R.N. Departure time: 17:58 Dec 07 2016. --17:58 Stephanie Carter R.N. Locked/Released at 12/07/2016 17:59 by Stephanie Carter R.N.
--- NOTE | 2016-12-07 18:08 | ED MAR SUMMARY ---
..... Medication Administration Record [facility] [address] [place] [address] Patient: BIRD HENAO Visit ID: [id number] 31y, F Weight: 88.4 kg Height/Length: 69 in BMI: 28.8 ALLERGIES: Azithromycin, Penicillins, Sulfa Antibiotics Given 16:22 12/07/2016 Ann Grimes R.N. Medication Administered: DILAUDID [IVP] (HYDROMORPHONE HCL PF), Dose: 1 mg IVP over 2 minute(s), Site: #1 right AC. Medication Ordered: Dilaudid IV 1 mg (may repeat 1 mg in 15 mins, total of 2 mg). Start 16:25 12/07/2016 Ann Grimes RCarlos, Stop 17:50 12/07/2016 Stephanie Carter R.N. Medication Administered: IV NS (SALINE), Dose: IV Fluids over 1 hour(s), Rate: 1000 mL/hr, Dispensed: 1000 mL bag, Site: #1 right AC. Medication Ordered: IV NS : initial bolus 1000 mL (1000 mL/hr), then 1000 mL/hr for X1 (NOW); Orville.
--- NOTE | 2016-12-07 18:08 | ED MAR SUMMARY ---
..... Medication Administration Record [facility] [address] [place] [address] Patient: BIRD HENAO Visit ID: [id number] 31y, F Weight: 88.4 kg Height/Length: 69 in BMI: 28.8 ALLERGIES: Azithromycin, Penicillins, Sulfa Antibiotics Given 16:22 12/07/2016 Ann Grimes R.N. Medication Administered: DILAUDID [IVP] (HYDROMORPHONE HCL PF), Dose: 1 mg IVP over 2 minute(s), Site: #1 right AC. Medication Ordered: Dilaudid IV 1 mg (may repeat 1 mg in 15 mins, total of 2 mg). Start 16:25 12/07/2016 Ann Grimes RCarlos, Stop 17:50 12/07/2016 Stephanie Carter R.N. Medication Administered: IV NS (SALINE), Dose: IV Fluids over 1 hour(s), Rate: 1000 mL/hr, Dispensed: 1000 mL bag, Site: #1 right AC. Medication Ordered: IV NS : initial bolus 1000 mL (1000 mL/hr), then 1000 mL/hr for X1 (NOW); Orville.
--- NOTE | 2016-12-07 18:08 | ED MED RECONCILIATION SUMMARY ---
Patient: BIRD HENAO Medication Reconciliation Report [facility] VisitID: [id number] [address] [place] [address] 31y, F Registration Date/Time: 12/07/2016 Weight: 88.4 kg Height/Length: 69 in. BMI: 28.8 ALLERGIES: Azithromycin, Penicillins, Sulfa Antibiotics The patient's Home Medications are listed below: THE FOLLOWING MEDICATIONS NEED TO BE RECONCILED: Citalopram Hydrobromide Oral (40 mg) 1 tablet, daily Doxycycline Hyclate Oral, twice daily, ear/sinus infection The source(s) of the original Home Medication information: patient The following Medications were given to the patient in the Emergency Department: Dilaudid [IVP] IVP 1 mg, administered: 12/07/2016 4:22:00 PM IV NS IV Fluids bolus 0, then 1000 mL/hr, administered: 12/07/2016 4:25:00 PM The following Medications were prescribed to the patient: Percocet 10 mg/325 mg: take 1 tablet orally every 6 hours as needed for pain. Dispense ten (10). No refill. Substitution is permissible. -- Kacey Porras P.A.-C
--- NOTE | 2016-12-07 18:08 | ED DISCHARGE INSTRUCTIONS ---
Patient: BIRD HENAO General Instructions [facility] VisitID: [id number] [place] [address] 31y, F Registration Date/Time: 12/07/2016 Incomplete spontaneous (miscarriage). INSTRUCTIONS Drink plenty of fluids. (Double on your Percocet, and 2-3 hours after such take MOTRIN 800 mg). Prescription Medications: Percocet 10 mg/325 mg: take 1 tablet orally every 6 hours as needed for pain. Dispense ten (10). No refill. Substitution is permissible. Follow-up: Follow up with your doctor Sunday. ADDITIONAL INFORMATION Miscarriage, Spontaneous (Completed) Todays exam shows that your has ended suddenly. While this may be an emotionally difficult time for you, know that it is not an uncommon event. A miscarriage can be due to various causes. These include a problem with the babys chromosomes (genes that carry the information needed for life) or with fertilization or implantation that didnt happen correctly. In most cases no cause can be found. Be assured that this miscarriage was not the result of anything that you did wrong, and it will not interfere with your ability to become in the future. It appears that your miscarriage is complete and all tissue from the has passed. If there are parts of the tissue that remain in the uterus, you will probably have more cramping and bleeding. Home Care: You may resume normal activities if you are not having heavy bleeding or pain. Until the bleeding stops completely and to prevent infection: Do not have sexual intercourse for as long as your healthcare provider tells you. Use sanitary pads instead of tampons. Do not douche. If you feel sadness or grief, it may help to talk about your feelings with family and friends, or with a counselor. Follow Up: Make an appointment to see your doctor in the next one to two weeks for a checkup. If cramping and bleeding return and continue for more than a few days, call your doctor or return here for an exam. The doctor may need to remove remaining tissue from the uterus to stop the bleeding and prevent infection. Or, you may be prescribed medication to take at home to help your body expel the remaining tissue. Note: If you had an ultrasound it will be reviewed by a specialist. You will be notified of any new findings that may affect your care. Get Prompt Medical Attention if any of the following occur: Heavy bleeding (soaking one new pad an hour over three hours) Bleeding that does not stop after ten days Foul-smelling vaginal discharge Fever of 100.4F (38C) or higher, or as directed by your healthcare provider Increasing lower abdominal pain Weakness, dizziness, or fainting Oxycodone Hydrochloride, Acetaminophen Oral tablet What is this medicine? ACETAMINOPHEN; OXYCODONE (a set a LUDIN dick fen; ox i KOE done) is a pain reliever. It is used to treat mild to moderate pain. How should I use this medicine? Take this medicine by mouth with a full glass of water. Follow the directions on the prescription label. Take your medicine at regular intervals. Do not take your medicine more often than directed. Talk to your director adult regarding the use of this medicine in children. Special care may be needed. Patients over 65 years old may have a stronger reaction and need a smaller dose. What side effects may I notice from receiving this medicine? Side effects that you should report to your doctor or health anesthesiologist and critical care as soon as possible: allergic reactions like skin rash, itching or hives, swelling of the face, lips, or tongue breathing difficulties, wheezing confusion light headedness or fainting spells severe stomach pain yellowing of the skin or the whites of the eyes Side effects that usually do not require medical attention (report to your doctor or health anesthesiologist and critical care if they continue or are bothersome): dizziness drowsiness nausea vomiting What may interact with this medicine? alcohol antihistamines barbiturates like amobarbital, butalbital, butabarbital, methohexital, pentobarbital, phenobarbital, thiopental, and secobarbital benztropine drugs for bladder problems like solifenacin, trospium, oxybutynin, tolterodine, hyoscyamine, and methscopolamine drugs for breathing problems like ipratropium and tiotropium drugs for certain stomach or intestine problems like propantheline, homatropine methylbromide, glycopyrrolate, atropine, belladonna, and dicyclomine general anesthetics like etomidate, ketamine, nitrous oxide, propofol, desflurane, enflurane, halothane, isoflurane, and sevoflurane medicines for depression, anxiety, or psychotic disturbances medicines for sleep muscle relaxants naltrexone narcotic medicines (opiates) for pain phenothiazines like perphenazine, thioridazine, chlorpromazine, mesoridazine, fluphenazine, prochlorperazine, promazine, and trifluoperazine scopolamine tramadol trihexyphenidyl What if I miss a dose? If you miss a dose, take it as soon as you can. If it is almost time for your next dose, take only that dose. Do not take double or extra doses. Where should I keep my medicine? Keep out of the reach of children. This medicine can be abused. Keep your medicine in a safe place to protect it from theft. Do not share this medicine with anyone. Selling or giving away this medicine is dangerous and against the law. Store at room temperature between 20 and 25 degrees C (68 and 77 degrees F). Keep container tightly closed. Protect from light. This medicine may cause accidental overdose and if it is taken by other adults, children, or pets. Flush any unused medicine down the toilet to reduce the chance of harm. Do not use the medicine after the expiration date. What should I tell my health care provider before I take this medicine? They need to know if you have any of these conditions: brain tumor Crohn's disease, inflammatory bowel disease, or ulcerative colitis drink more than 3 alcohol containing drinks per day drug abuse or addiction head injury heart or circulation problems kidney disease or problems going to the bathroom liver disease lung disease, asthma, or breathing problems an unusual or allergic reaction to acetaminophen, oxycodone, other opioid analgesics, other medicines, foods, dyes, or preservatives or trying to get breast-feeding What should I watch for while using this medicine? Tell your doctor or health anesthesiologist and critical care if your pain does not go away, if it gets worse, or if you have new or a different type of pain. You may develop tolerance to the medicine. Tolerance means that you will need a higher dose of the medication for pain relief. Tolerance is normal and is expected if you take this medicine for a long time. Do not suddenly stop taking your medicine because you may develop a severe reaction. Your body becomes used to the medicine. This does NOT mean you are addicted. Addiction is a behavior related to getting and using a drug for a non-medical reason. If you have pain, you have a medical reason to take pain medicine. Your doctor will tell you how much medicine to take. If your doctor wants you to stop the medicine, the dose will be slowly lowered over time to avoid any side effects. You may get drowsy or dizzy. Do not drive, use machinery, or do anything that needs mental alertness until you know how this medicine affects you. Do not stand or sit up quickly, especially if you are an older patient. This reduces the risk of dizzy or fainting spells. Alcohol may interfere with the effect of this medicine. Avoid alcoholic drinks. There are different types of narcotic medicines (opiates) for pain. If you take more than one type at the same time, you may have more side effects. Give your health care provider a list of all medicines you use. Your doctor will tell you how much medicine to take. Do not take more medicine than directed. Call emergency for help if you have problems breathing. The medicine will cause constipation. Try to have a bowel movement at least every 2 to 3 days. If you do not have a bowel movement for 3 days, call your doctor or health anesthesiologist and critical care. Do not take Tylenol (acetaminophen) or medicines that have acetaminophen with this medicine. Too much acetaminophen can be very dangerous. Many nonprescription medicines contain acetaminophen. Always read the labels carefully to avoid taking more acetaminophen. You have been given the following additional information: Miscarriage, Spontaneous (Completed) Oxycodone Hydrochloride, Acetaminophen Oral tablet (Electronically signed by Kacey Porras P.A.-C 12/07/2016 18:08)
--- NOTE | 2016-12-07 18:08 | ED MED RECONCILIATION SUMMARY ---
Patient: BIRD HENAO Medication Reconciliation Report [facility] VisitID: [id number] [address] [place] [address] 31y, F Registration Date/Time: 12/07/2016 Weight: 88.4 kg Height/Length: 69 in. BMI: 28.8 ALLERGIES: Azithromycin, Penicillins, Sulfa Antibiotics The patient's Home Medications are listed below: THE FOLLOWING MEDICATIONS NEED TO BE RECONCILED: Citalopram Hydrobromide Oral (40 mg) 1 tablet, daily Doxycycline Hyclate Oral, twice daily, ear/sinus infection The source(s) of the original Home Medication information: patient The following Medications were given to the patient in the Emergency Department: Dilaudid [IVP] IVP 1 mg, administered: 12/07/2016 4:22:00 PM IV NS IV Fluids bolus 0, then 1000 mL/hr, administered: 12/07/2016 4:25:00 PM The following Medications were prescribed to the patient: Percocet 10 mg/325 mg: take 1 tablet orally every 6 hours as needed for pain. Dispense ten (10). No refill. Substitution is permissible. -- Kacey Porras P.A.-C
[2017-01-31] MEDS ORDERED: CITALOPRAM HYDR40 MG PO (16:29)
== END 2016-12-07 17:59 | disposition home or self-care (01) ==
LOC: ED SRH 15:44
DX: O03.4 Incomplete spontaneous abortion without complication (principal); Z3A.01 Less than 8 weeks gestation of pregnancy; Z88.0 Allergy status to penicillin; Z88.2 Allergy status to sulfonamides
CPT/HCPCS: 90100; 90197; 93070; 95059

== ENCOUNTER 2016-12-10 22:19 | Observation (INO) | payer OTHER ==
[~2016-12-10] VITALS: Ht 175.3 cm; Wt 89.2 kg
--- NOTE | 2016-12-11 07:29 | ED ORDER SUMMARY ---
..... Patient: BIRD HENAO OrderSheet [facility] VisitID: [id number] [place] [address] 31y, F Registration Date/Time: 12/10/2016 ORDER SHEET Weight: 88.4 kg (stated) Allergies: Azithromycin, Penicillins, Sulfa Antibiotics GENERAL ORDERS: CBC w Diff Urgent (22:57 12/10/2016 Corona Brumfield) (23:12 Jayne R.N.) CMP Urgent (22:57 12/10/2016 Corona Brumfield) (23:12 Harmeeta R.N.) Serum Quantitative Urgent (22:57 12/10/2016 Corona Brumfield) (23:12 JTammia R.N.) US OB 1st Trimester w Transvag (???) (Heavy bleeding, HCG down from 700 to 70) Urgent (00:13 12/11/2016 Corona Brumfield) (Ack 0:20 JAry R.N.) (1:09 DBeyer R.N.) (Cancelled: US tech request, aware1:10 DBeyer R.N.) US Pelvic Complete w Transvag Urgent (01:07 12/11/2016 Anthony R.NChantal verbal order read back to Corona Brumfield) (1:43 RFay) MEDICATION ORDERS: Misoprostol ID (Tablet 100 mcg) 800 mcg (NOW) (02:26 12/11/2016 Corona Brumfield) (2:50 DBeyer R.N.) IV FLUIDS: IV Saline Lock (22:57 12/10/2016 Corona Brumfield) (22:58 SIMeyantwan R.N.) IV NS with Normal Saline 1 Liter: initial bolus 1000 mL (1000 mL/hr), then 1000 mL/hr for X1 (NOW) (00:13 12/11/2016 Jayne Duncan verbal order read back to Corona Brumfield) (0:24 DBeyer R.N.) IV NS : initial bolus none -, then 1000 mL/hr for X1 (NOW) (00:13 12/11/2016 Corona Brumfield) (0:23 DBeyer R.N.) IV NS : initial bolus none -, then 150 mL/hr for X1 (NOW) (02:35 12/11/2016 Corona Brumfield) (2:51 Anthony Jung.NChantal) Zofran IV 4 mg (NOW) (02:38 12/11/2016 Corona Brumfield) (2:51 Anthony Jung.Payton) ORDER SHEET NOTES: [Electronically signed by Tc Carrasquillo Dr. (10:48 12/11/2016)] [Electronically signed by Monserrat Maya R.N. (07:54 12/13/2016)] [Electronically locked/signed by Monserrat Maya R.N. (07:54 12/13/2016)]
--- NOTE | 2016-12-11 07:29 | ED ORDER SUMMARY ---
..... Patient: BIRD HENAO OrderSheet [facility] VisitID: [id number] [place] [address] 31y, F Registration Date/Time: 12/10/2016 ORDER SHEET Weight: 88.4 kg (stated) Allergies: Azithromycin, Penicillins, Sulfa Antibiotics GENERAL ORDERS: CBC w Diff Urgent (22:57 12/10/2016 Corona Brumfield) (23:12 Jayne R.N.) CMP Urgent (22:57 12/10/2016 Corona Brumfield) (23:12 Harmeeta R.N.) Serum Quantitative Urgent (22:57 12/10/2016 Corona Brumfield) (23:12 JTammia R.N.) US OB 1st Trimester w Transvag (???) (Heavy bleeding, HCG down from 700 to 70) Urgent (00:13 12/11/2016 Corona Brumfield) (Ack 0:20 JAry R.N.) (1:09 DBeyer R.N.) (Cancelled: US tech request, aware1:10 DBeyer R.N.) US Pelvic Complete w Transvag Urgent (01:07 12/11/2016 Anthony R.NChantal verbal order read back to Corona Brumfield) (1:43 RFay) MEDICATION ORDERS: Misoprostol NV (Tablet 100 mcg) 800 mcg (NOW) (02:26 12/11/2016 Corona Brumfield) (2:50 DBeyer R.N.) IV FLUIDS: IV Saline Lock (22:57 12/10/2016 Corona Brumfield) (22:58 SIMeyantwan R.N.) IV NS with Normal Saline 1 Liter: initial bolus 1000 mL (1000 mL/hr), then 1000 mL/hr for X1 (NOW) (00:13 12/11/2016 Jayne Duncan verbal order read back to Corona Brumfield) (0:24 DBeyer R.N.) IV NS : initial bolus none -, then 1000 mL/hr for X1 (NOW) (00:13 12/11/2016 Corona Brumfield) (0:23 DBeyer R.N.) IV NS : initial bolus none -, then 150 mL/hr for X1 (NOW) (02:35 12/11/2016 Corona Brumfield) (2:51 Anthony Jung.NChantal) Zofran IV 4 mg (NOW) (02:38 12/11/2016 Corona Brumfield) (2:51 Anthony Jung.Payton) ORDER SHEET NOTES: [Electronically signed by Tc Carrasquillo Dr. (10:48 12/11/2016)] [Electronically signed by Monserrat Maya R.N. (07:54 12/13/2016)] [Electronically locked/signed by Monserrat Maya R.N. (07:54 12/13/2016)]
--- NOTE | 2016-12-11 07:29 | ED CLINICAL REPORT ---
Clinical Report - Physicians/Mid Levels [facility] [address] [place] [address] 12/10/2016 22:20 Patient: BIRD HENAO Time Seen: 22:29; initial patient contact. Arrived- By private vehicle. Historian- patient. HISTORY OF PRESENT ILLNESS Chief Complaint: VAGINAL BLEEDING. This started about 1 week ago and still present and worsening. It was gradual in onset and has been constant. The symptoms are described as moderate. Modifying factors. Not worsened by anything. Not relieved by anything. The patient has had abnormal bleeding described as heavier than normal period 4 soaked pads since 1999. No abdominal pain, pelvic pain, vaginal pain, low back pain or flank pain. No pain with urination or urinary frequency. Currently . Similar symptoms previously: None. Recent medical care: The patient was seen recently at this facility in the emergency department. Seen for similar symptoms. Evaluation/treatment: CBC and serum HCG. Diagnosis: miscarriage. REVIEW OF SYSTEMS No nausea, vomiting, diarrhea or chills. All systems otherwise negative, except as recorded above. PAST HISTORY ( Spontaneous (Miscarriage). OB History. . Depression. Chronic Headache.). SOCIAL HISTORY Never smoker. Occasional alcohol use. No drug use. ADDITIONAL NOTES The nursing notes have been reviewed with agreement regarding the chief complaint, PMH and patient medications and allergies. PHYSICAL EXAM Vital Signs: 12/10/2016 23:28 BP: 112/69. HR: 88. RR: 18. O2 saturation: 99%. Have been reviewed as normal. Appearance: Alert. Oriented X3. No acute distress. Eyes: No pale conjunctivae. ENT: Pharynx normal. CVS: Heart sounds normal. Rate normal. Rhythm normal. Respiratory: No respiratory distress. Breath sounds normal. Abdomen: Soft and nontender. Bowel sounds normal. : Speculum and bimanual exam performed. Moderate vaginal bleeding, consisting of bright red blood, and dark blood with clots, via the cervical os (~ 350mL suctioned from vaginal vault). Cervical os closed. No cervical dilation. No tissue present. No cervicitis. No tenderness present on bimanual exam. Uterus not enlarged. No uterine tenderness. No tenderness with movement of the cervix. No adnexal tenderness. No adnexal mass/fullness. No pelvic mass. (Female RN resident programs assistant present for exam). Skin: Normal skin color. Neuro: Oriented X 3. LABS, X-RAYS, AND EKG Laboratory Tests: CBC w Diff: (QUANG: 12/10/2016 22:53) ( [facility] 12/10/2016 23:08) Final results Test Result Flag Units (Reference) WHITE BLOOD COUNT 9.0 K/uL (4.5-11.5) RED BLOOD COUNT 3.38 L M/uL (4.00-5.20) HEMOGLOBIN 10.3 L gm/dL (12.0-16.0) HEMATOCRIT 30.4 L % (36.0-46.0) MEAN CELL VOLUME 90 fL (80-100) MEAN CORPUSCULAR HGB 31 pg (26-34) MEAN CORPUSCULAR HGB CONC 34 g/dL (31-37) RED CELL DISTRIBUTION WIDTH 12.9 % (11.6-14.8) PLATELET COUNT 265 K/uL (150-400) NEUTROPHIL % 50.8 % (50-75) LYMPH % 38.0 % (25-40) MONO % 7.8 % (3-14) EOSINOPHIL % 3.1 % (0-4) BASOPHIL % 0.3 % (0-2) CMP: (QUANG: 12/10/2016 22:53) ( [facility] 12/10/2016 23:22) Final results Test Result Flag Units (Reference) GLUCOSE 105 mg/dL (70-110) BUN 13 mg/dL (7-18) CREATININE 0.8 mg/dL (0.6-1.3) Estimated GFR >60 mL/min Estimated GFR- >60 mL/min Note: Persistent reduction over 3 months in eGFR<60 mL/min/1.73 m2 defines CKD. Patients with eGFR values>=60 mL/min/1.73 m2 may also have CKD if evidence ofpersistent proteinuria. Additional information may be foundat www.kidney.org. SODIUM 140 mmol/L (136-145) POTASSIUM 3.6 mmol/L (3.5-5.1) CHLORIDE 104 mmol/L (98-107) CARBON DIOXIDE 26 mmol/L (21-32) CALCIUM 8.7 mg/dL (8.5-10.1) TOTAL PROTEIN 7.4 g/dL (6.4-8.2) ALBUMIN 3.7 g/dL (3.3-5.0) BILIRUBIN, TOTAL 0.3 mg/dL (0.0-1.0) ALKALINE PHOSPHATASE 95 U/L (46-116) AST (SGOT) 33 U/L (15-37) ALT (SGPT) 40 U/L (12-78) BETA HCG, QUANTITATIVE 74 mIU/mL REFERENCE RANGE:Adult Males: <2 mIU/mLNon- Females: <6 mIU/mL Females:Approximate Approximate hCGGestational Age Range (mIU/mL) 0-1 week 0-501-2 weeks 40-3002-3 weeks 100-61153-4 weeks 500-34349-1 months 5,000-200,0002-3 months 10,000-100,0002nd trimester 3,000-50,0003rd trimester 1,000-50,000 . PROGRESS AND PROCEDURES Course of Care: 06:45 12/11/16. Dr. Sapp en route due to continued bleeding after Misoprostil. Discussed case with patient's primary care provider, (call returned 02:20 Dr. Sapp. Recommended Misoprostal 800 mcg [place] and monitor for 2 hours, if no slow down on bleeding, he will take her to the OR.). (Electronically signed by Tc Carrasquillo Dr. 12/11/2016 10:48)
--- NOTE | 2016-12-11 07:29 | ED NURSING NOTES ---
Clinical Report - Nurses [facility] [address] [place] [address] 12/10/2016 22:20 Patient: BIRD HENAO TRIAGE Triage time 22:41 Dec 10 2016. Acuity: LEVEL 3. Chief Complaint: VAGINAL BLEED. --22:44 Anshul Wade R.N. 22:41 12/10/16. BP: 136/77. HR: 84. RR: 18. O2 saturation: 99%. Temp: 98.3 F. Pain level now 0/10. --22:44 Anshul Wade R.N. Weight: 88.4 kg stated. Height/Length: 68 inches Per Patient. BMI: 29.6. --22:43 Anshul Wade R.N. Medications Citalopram Hydrobromide Oral. --22:43 Anshul Wade R.N. Allergies Azithromycin. (medication reaction to Citalopram) Penicillins. Sulfa Antibiotics. --22:43 Anshul Wade R.N. History ( pt reports 4 soaked pads since recent miscarriage took medication for miscarriage on ). This started just prior to arrival. 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 SOCIAL HX: Never smoker. Occasional alcohol use. No drug use. --22:44 Anshul Wade R.N. PROBLEMS: Spontaneous (Miscarriage). OB History. . Depression. Chronic Headache. --22:43 Anshul Wade R.N. Interventions ID band on patient. --22:44 Anshul Wade R.N. PHYSICAL ASSESSMENT GENERAL / NEURO / PSYCH: Alert. Oriented X 4. Appears in no acute distress. RESPIRATORY: Respirations not labored. Breath sounds within normal limits. CVS: Normal heart rate and rhythm. Capillary refill less than 2 seconds. GI / : Bowel sounds within normal limits. Vaginal bleeding present. --23:19 Anshul Wade R.N. SKIN: Skin is warm and dry. --23:19 Anshul Wade R.N. NURSING PROGRESS NOTES 22:58 12/10/2016 Site #1 started via IV in the right antecubital space with an 18g angiocath, with aseptic technique and good blood return; one attempt. Blood drawn: rainbow set. Labeled in the presence of the patient. Saline lock flushed with saline. --22:58 Anshul Wade R.N. Oxygen administered. Monitoring of patient in place. Patient gowned. Reassurance given. Two patient identifiers checked. Call light placed in reach. Side rails up x 1. Bed placed in lowest position. --23:19 Anshul Wade R.N. ( Pt resting in bed denies needs at this time.). --23:29 Anshul Wade R.N. 23:28 12/10/16. BP: 112/69. HR: 88. RR: 18. O2 saturation: 99%. --23:29 Anshul Wade R.N. 00:23 12/11/2016 Started bag #1 1000 mL IV Fluids IV NS (Saline); bolus of 1000 mL wide open via site #1. Allergies verified and confirmed 5 rights. IV patency established. IV site checked: no pain, redness, or swelling. IV flushed thoroughly pre- and post-medication administration. --00:23 Anshul Wade R.N. 00:26 12/11/16. BP: 101/62. HR: 96. RR: 18. O2 saturation: 100%. Temp: 98.6 F. --01:27 Anshul Wade R.N. 02:50 12/11/2016 MISOPROSTOL [place] 800 mcg given. Allergies verified and confirmed 5 rights. (Medication confirmed by JAX Forman). --02:50 Anshul Wade R.N. 02:51 12/11/2016 Started bag #1 1000 mL IV Fluids IV NS (Saline); at 150 mL/hr over 10 hour(s) via site #1. Allergies verified and confirmed 5 rights. IV patency established. IV site checked: no pain, redness, or swelling. IV flushed thoroughly pre- and post-medication administration. Completed per protocol. --02:51 Anshul Wade R.N. 02:51 12/11/2016 Zofran (Ondansetron HCl) IVP 4 mg given over 2 minute(s) via site #1. Allergies verified and confirmed 5 rights. IV patency established. IV site checked: no pain, redness, or swelling. IV flushed thoroughly pre- and post-medication administration. IVP given by RN. --02:51 Anshul Wade R.N. 04:01 12/11/16. BP: 115/72. HR: 65. O2 saturation: 94%. --04:01 Anshul Wade R.N. 03:15 12/11/16. BP: 104/65. HR: 78. O2 saturation: 96%. --04:08 Anshul Wade R.N. 02:15 12/11/16. BP: 112/65. HR: 81. O2 saturation: 99%. --04:09 Anshul Wade R.N. ( Pt ambulated to bathroom steady on her feet.). --04:26 Anshul Wade R.N. ( report to clarisa). --07:15 Anshul Wade R.N. 07:53 12/11/16. BP: 108/41. HR: 88. RR: 16. O2 saturation: 100% on room air. Temp: 98.5 F (oral). Pain level now 0/10. --07:55 Rhona Munoz R.N. 07:15. PELVIC EXAM: Pelvic exam performed by OB-Lead Portfolio Manager physician. Assisted by one nurse. Preparation: patient placed in lithotomy position. Procedure: bimanual exam. Moderate amount of dark vaginal bleeding noted. Status post-procedure: she was stable. Total time of assist / procedure: 15 minutes. --07:55 Rhona Munoz R.N. 08:00 12/11/2016 IV Fluids IV NS Continued: upon admission at the rate of 150 mL/hr. 200 mL remaining bag #2. IV patency established. IV site checked: no pain, redness, or swelling. IV flushed thoroughly. --09:48 Rhona Munoz R.N. DISPOSITION / DISCHARGE 08:00. Departure time: 0800. Admitted to Acute Care. Transported via stretcher by [employer]. Report was given to a nurse via a phone call. Report included patient's care, treatment, medications, reviewed medication reconcilliation, and condition (including any recent changes or anticipated changes). All questions were answered. Report was acknowledged and care was transferred. Patient's personal items; items were transported with the patient. --09:17 Rhona Munoz R.N. Locked/Released at 12/13/2016 7:54 by Monserrat Maya R.N.
--- NOTE | 2016-12-11 07:29 | ED NURSING NOTES ---
Clinical Report - Nurses [facility] [address] [place] [address] 12/10/2016 22:20 Patient: BIRD HENAO TRIAGE Triage time 22:41 Dec 10 2016. Acuity: LEVEL 3. Chief Complaint: VAGINAL BLEED. --22:44 Anshul Wade R.N. 22:41 12/10/16. BP: 136/77. HR: 84. RR: 18. O2 saturation: 99%. Temp: 98.3 F. Pain level now 0/10. --22:44 Anshul Wade R.N. Weight: 88.4 kg stated. Height/Length: 68 inches Per Patient. BMI: 29.6. --22:43 Anshul Wade R.N. Medications Citalopram Hydrobromide Oral. --22:43 Anshul Wade R.N. Allergies Azithromycin. (medication reaction to Citalopram) Penicillins. Sulfa Antibiotics. --22:43 Anshul Wade R.N. History ( pt reports 4 soaked pads since recent miscarriage took medication for miscarriage on ). This started just prior to arrival. 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 SOCIAL HX: Never smoker. Occasional alcohol use. No drug use. --22:44 Anshul Wade R.N. PROBLEMS: Spontaneous (Miscarriage). OB History. . Depression. Chronic Headache. --22:43 Anshul Wade R.N. Interventions ID band on patient. --22:44 Anshul Wade R.N. PHYSICAL ASSESSMENT GENERAL / NEURO / PSYCH: Alert. Oriented X 4. Appears in no acute distress. RESPIRATORY: Respirations not labored. Breath sounds within normal limits. CVS: Normal heart rate and rhythm. Capillary refill less than 2 seconds. GI / : Bowel sounds within normal limits. Vaginal bleeding present. --23:19 Anshul Wade R.N. SKIN: Skin is warm and dry. --23:19 Anshul Wade R.N. NURSING PROGRESS NOTES 22:58 12/10/2016 Site #1 started via IV in the right antecubital space with an 18g angiocath, with aseptic technique and good blood return; one attempt. Blood drawn: rainbow set. Labeled in the presence of the patient. Saline lock flushed with saline. --22:58 Anshul Wade R.N. Oxygen administered. Monitoring of patient in place. Patient gowned. Reassurance given. Two patient identifiers checked. Call light placed in reach. Side rails up x 1. Bed placed in lowest position. --23:19 Anshul Wade R.N. ( Pt resting in bed denies needs at this time.). --23:29 Anshul Wade R.N. 23:28 12/10/16. BP: 112/69. HR: 88. RR: 18. O2 saturation: 99%. --23:29 Anshul Wade R.N. 00:23 12/11/2016 Started bag #1 1000 mL IV Fluids IV NS (Saline); bolus of 1000 mL wide open via site #1. Allergies verified and confirmed 5 rights. IV patency established. IV site checked: no pain, redness, or swelling. IV flushed thoroughly pre- and post-medication administration. --00:23 Anshul Wade R.N. 00:26 12/11/16. BP: 101/62. HR: 96. RR: 18. O2 saturation: 100%. Temp: 98.6 F. --01:27 Anshlu Wade R.N. 02:50 12/11/2016 MISOPROSTOL [place] 800 mcg given. Allergies verified and confirmed 5 rights. (Medication confirmed by JAX Forman). --02:50 Anshul Wade R.N. 02:51 12/11/2016 Started bag #1 1000 mL IV Fluids IV NS (Saline); at 150 mL/hr over 10 hour(s) via site #1. Allergies verified and confirmed 5 rights. IV patency established. IV site checked: no pain, redness, or swelling. IV flushed thoroughly pre- and post-medication administration. Completed per protocol. --02:51 Anshul Wade R.N. 02:51 12/11/2016 Zofran (Ondansetron HCl) IVP 4 mg given over 2 minute(s) via site #1. Allergies verified and confirmed 5 rights. IV patency established. IV site checked: no pain, redness, or swelling. IV flushed thoroughly pre- and post-medication administration. IVP given by RN. --02:51 Anshul Wade R.N. 04:01 12/11/16. BP: 115/72. HR: 65. O2 saturation: 94%. --04:01 Anshul Wade R.N. 03:15 12/11/16. BP: 104/65. HR: 78. O2 saturation: 96%. --04:08 Anshul Wade R.N. 02:15 12/11/16. BP: 112/65. HR: 81. O2 saturation: 99%. --04:09 Anshul Wade R.N. ( Pt ambulated to bathroom steady on her feet.). --04:26 Anshul Wade R.N. ( report to clarisa). --07:15 Anshul Wade R.N. 07:53 12/11/16. BP: 108/41. HR: 88. RR: 16. O2 saturation: 100% on room air. Temp: 98.5 F (oral). Pain level now 0/10. --07:55 Rhona Munoz R.N. 07:15. PELVIC EXAM: Pelvic exam performed by OB-Global Program Director physician. Assisted by one nurse. Preparation: patient placed in lithotomy position. Procedure: bimanual exam. Moderate amount of dark vaginal bleeding noted. Status post-procedure: she was stable. Total time of assist / procedure: 15 minutes. --07:55 Rhona Munoz R.N. 08:00 12/11/2016 IV Fluids IV NS Continued: upon admission at the rate of 150 mL/hr. 200 mL remaining bag #2. IV patency established. IV site checked: no pain, redness, or swelling. IV flushed thoroughly. --09:48 Rhona Munoz R.N. DISPOSITION / DISCHARGE 08:00. Departure time: 0800. Admitted to Acute Care. Transported via stretcher by [employer]. Report was given to a nurse via a phone call. Report included patient's care, treatment, medications, reviewed medication reconcilliation, and condition (including any recent changes or anticipated changes). All questions were answered. Report was acknowledged and care was transferred. Patient's personal items; items were transported with the patient. --09:17 Rhona Munoz R.N. Locked/Released at 12/13/2016 7:54 by Monserrat Maya R.N.
--- NOTE | 2016-12-11 07:29 | ED CLINICAL REPORT ---
Clinical Report - Physicians/Mid Levels [facility] [address] [place] [address] 12/10/2016 22:20 Patient: BIRD HENAO Time Seen: 22:29; initial patient contact. Arrived- By private vehicle. Historian- patient. HISTORY OF PRESENT ILLNESS Chief Complaint: VAGINAL BLEEDING. This started about 1 week ago and still present and worsening. It was gradual in onset and has been constant. The symptoms are described as moderate. Modifying factors. Not worsened by anything. Not relieved by anything. The patient has had abnormal bleeding described as heavier than normal period 4 soaked pads since 1999. No abdominal pain, pelvic pain, vaginal pain, low back pain or flank pain. No pain with urination or urinary frequency. Currently . Similar symptoms previously: None. Recent medical care: The patient was seen recently at this facility in the emergency department. Seen for similar symptoms. Evaluation/treatment: CBC and serum HCG. Diagnosis: miscarriage. REVIEW OF SYSTEMS No nausea, vomiting, diarrhea or chills. All systems otherwise negative, except as recorded above. PAST HISTORY ( Spontaneous (Miscarriage). OB History. . Depression. Chronic Headache.). SOCIAL HISTORY Never smoker. Occasional alcohol use. No drug use. ADDITIONAL NOTES The nursing notes have been reviewed with agreement regarding the chief complaint, PMH and patient medications and allergies. PHYSICAL EXAM Vital Signs: 12/10/2016 23:28 BP: 112/69. HR: 88. RR: 18. O2 saturation: 99%. Have been reviewed as normal. Appearance: Alert. Oriented X3. No acute distress. Eyes: No pale conjunctivae. ENT: Pharynx normal. CVS: Heart sounds normal. Rate normal. Rhythm normal. Respiratory: No respiratory distress. Breath sounds normal. Abdomen: Soft and nontender. Bowel sounds normal. : Speculum and bimanual exam performed. Moderate vaginal bleeding, consisting of bright red blood, and dark blood with clots, via the cervical os (~ 350mL suctioned from vaginal vault). Cervical os closed. No cervical dilation. No tissue present. No cervicitis. No tenderness present on bimanual exam. Uterus not enlarged. No uterine tenderness. No tenderness with movement of the cervix. No adnexal tenderness. No adnexal mass/fullness. No pelvic mass. (Female RN home extension agent present for exam). Skin: Normal skin color. Neuro: Oriented X 3. LABS, X-RAYS, AND EKG Laboratory Tests: CBC w Diff: (QUANG: 12/10/2016 22:53) ( [facility] 12/10/2016 23:08) Final results Test Result Flag Units (Reference) WHITE BLOOD COUNT 9.0 K/uL (4.5-11.5) RED BLOOD COUNT 3.38 L M/uL (4.00-5.20) HEMOGLOBIN 10.3 L gm/dL (12.0-16.0) HEMATOCRIT 30.4 L % (36.0-46.0) MEAN CELL VOLUME 90 fL (80-100) MEAN CORPUSCULAR HGB 31 pg (26-34) MEAN CORPUSCULAR HGB CONC 34 g/dL (31-37) RED CELL DISTRIBUTION WIDTH 12.9 % (11.6-14.8) PLATELET COUNT 265 K/uL (150-400) NEUTROPHIL % 50.8 % (50-75) LYMPH % 38.0 % (25-40) MONO % 7.8 % (3-14) EOSINOPHIL % 3.1 % (0-4) BASOPHIL % 0.3 % (0-2) CMP: (QUANG: 12/10/2016 22:53) ( [facility] 12/10/2016 23:22) Final results Test Result Flag Units (Reference) GLUCOSE 105 mg/dL (70-110) BUN 13 mg/dL (7-18) CREATININE 0.8 mg/dL (0.6-1.3) Estimated GFR >60 mL/min Estimated GFR- >60 mL/min Note: Persistent reduction over 3 months in eGFR<60 mL/min/1.73 m2 defines CKD. Patients with eGFR values>=60 mL/min/1.73 m2 may also have CKD if evidence ofpersistent proteinuria. Additional information may be foundat www.kidney.org. SODIUM 140 mmol/L (136-145) POTASSIUM 3.6 mmol/L (3.5-5.1) CHLORIDE 104 mmol/L (98-107) CARBON DIOXIDE 26 mmol/L (21-32) CALCIUM 8.7 mg/dL (8.5-10.1) TOTAL PROTEIN 7.4 g/dL (6.4-8.2) ALBUMIN 3.7 g/dL (3.3-5.0) BILIRUBIN, TOTAL 0.3 mg/dL (0.0-1.0) ALKALINE PHOSPHATASE 95 U/L (46-116) AST (SGOT) 33 U/L (15-37) ALT (SGPT) 40 U/L (12-78) BETA HCG, QUANTITATIVE 74 mIU/mL REFERENCE RANGE:Adult Males: <2 mIU/mLNon- Females: <6 mIU/mL Females:Approximate Approximate hCGGestational Age Range (mIU/mL) 0-1 week 0-501-2 weeks 40-3002-3 weeks 100-57081-8 weeks 500-23480-5 months 5,000-200,0002-3 months 10,000-100,0002nd trimester 3,000-50,0003rd trimester 1,000-50,000 . PROGRESS AND PROCEDURES Course of Care: 06:45 12/11/16. Dr. Sapp en route due to continued bleeding after Misoprostil. Discussed case with patient's primary care provider, (call returned 02:20 Dr. Sapp. Recommended Misoprostal 800 mcg [place] and monitor for 2 hours, if no slow down on bleeding, he will take her to the OR.). (Electronically signed by Tc Carrasquillo Dr. 12/11/2016 10:48)
--- NOTE | 2016-12-11 08:04 | DIAGNOSTIC IMAGING REPORT ---
PROCEDURE: US COMPLETE PELVIC W/TRANSVAG INDICATION: ABNORMAL BLEEDING TECHNIQUE: Endovaginal andersen scale and color Doppler sonographic images of the female pelvis were obtained. COMPARISON: Pelvic ultrasound 12/06/2016 FINDINGS: TRANSVAGINAL SCANS: Uterus measures 9.8 x 5.5 x 6.7 cm. Inhomogeneous thickened endometrium measures 3.6 cm with some areas of vascularity suspicious for retained products of conception. Right ovary measures 3.2 x 2 x 4.1 cm and left ovary 2.5 x 1.7 x 2.6 cm. IMPRESSION: 1. Findings consistent with retained products of conception 2. Results discussed with Dr. Carrasquillo
[2016-12-11 09:20] VITALS: BP 102/55
--- NOTE | 2016-12-11 10:32 | NUR ---
pt came up to room 211 with fac tech at 0850. Pt walked from ER bed to AC room 211 and tolerated well.
[2016-12-11 10:59] VITALS: BP 102/54
--- NOTE | 2016-12-11 12:44 | Provider's Discharge Care Plan ---
Problem, Goal, Plan Problem List 1. , incomplete with hemorrhage Goals: Improve disease control Instructions: Follow up as needed
--- NOTE | 2016-12-11 12:44 | Provider's Discharge Care Plan ---
Problem, Goal, Plan Problem List 1. , incomplete with hemorrhage Goals: Improve disease control Instructions: Follow up as needed
--- NOTE | 2016-12-13 07:55 | ED MED RECONCILIATION SUMMARY ---
Patient: BIRD HENAO Medication Reconciliation Report [facility] VisitID: [id number] [address] [place] [address] 31y, F Registration Date/Time: 12/10/2016 Weight: 88.4 kg Height/Length: 68 in. BMI: 29.6 ALLERGIES: Azithromycin, Penicillins, Sulfa Antibiotics The patient's Home Medications are listed below: THE FOLLOWING MEDICATIONS NEED TO BE RECONCILED: Citalopram Hydrobromide Oral The source(s) of the original Home Medication information: Not obtained. The following Medications were given to the patient in the Emergency Department: IV NS IV Fluids bolus 1000 mL wide open, administered: 12/11/2016 12:23:00 AM MISOPROSTOL [CO] CO 800 mcg, administered: 12/11/2016 2:50:00 AM IV NS IV Fluids bolus 0, then 150 mL/hr, administered: 12/11/2016 2:51:00 AM Zofran [IVP] IVP 4 mg, administered: 12/11/2016 2:51:00 AM The following Medications were prescribed to the patient: None.
--- NOTE | 2016-12-13 07:55 | ED MAR SUMMARY ---
..... Medication Administration Record [facility] [address] [place] [place] [address] Patient: BIRD HENAO Visit ID: [id number] 31y, F Weight: 88.4 kg Height/Length: 68 in BMI: 29.6 ALLERGIES: Azithromycin, Penicillins, Sulfa Antibiotics Start 00:23 12/11/2016 Anshul Wade RChantalNChantal Medication Administered: IV NS (SALINE), Dose: IV Fluids, Bolus: 1000 mL wide open, Dispensed: 1000 mL bag, Site: #1 right AC. Medication Ordered: IV NS : initial bolus none -, then 1000 mL/hr for X1 (NOW). Given 02:50 12/11/2016 Anshul Wade R.N. Medication Administered: MISOPROSTOL [AR], Dose: 800 mcg AR. Medication Ordered: Misoprostol AR (Tablet 100 mcg) 800 mcg (NOW). Start 02:51 12/11/2016 Anshul Wade RCarlos, Continued Upon Admission 08:00 12/11/2016 Rhona Munoz R.N. Medication Administered: IV NS (SALINE), Dose: IV Fluids over 10 hour(s), Rate: 150 mL/hr, Dispensed: 1000 mL bag, Site: #1 right AC. Medication Ordered: IV NS : initial bolus none -, then 150 mL/hr for X1 (NOW). Given 02:51 12/11/2016 Anshul Wade R.N. Medication Administered: ZOFRAN [IVP] (ONDANSETRON HCL), Dose: 4 mg IVP over 2 minute(s), Site: #1 right AC. Medication Ordered: Zofran IV 4 mg (NOW).
--- NOTE | 2016-12-13 07:55 | ED MAR SUMMARY ---
..... Medication Administration Record [facility] [address] [place] [address] Patient: BIRD HENAO Visit ID: [id number] 31y, F Weight: 88.4 kg Height/Length: 68 in BMI: 29.6 ALLERGIES: Azithromycin, Penicillins, Sulfa Antibiotics Start 00:23 12/11/2016 Anshul Wade RChantalNChantal Medication Administered: IV NS (SALINE), Dose: IV Fluids, Bolus: 1000 mL wide open, Dispensed: 1000 mL bag, Site: #1 right AC. Medication Ordered: IV NS : initial bolus none -, then 1000 mL/hr for X1 (NOW). Given 02:50 12/11/2016 Anshul Wade R.N. Medication Administered: MISOPROSTOL [DC], Dose: 800 mcg DC. Medication Ordered: Misoprostol DC (Tablet 100 mcg) 800 mcg (NOW). Start 02:51 12/11/2016 Anshul Wade RCarlos, Continued Upon Admission 08:00 12/11/2016 Rhona Munoz R.N. Medication Administered: IV NS (SALINE), Dose: IV Fluids over 10 hour(s), Rate: 150 mL/hr, Dispensed: 1000 mL bag, Site: #1 right AC. Medication Ordered: IV NS : initial bolus none -, then 150 mL/hr for X1 (NOW). Given 02:51 12/11/2016 Anshul Wade R.N. Medication Administered: ZOFRAN [IVP] (ONDANSETRON HCL), Dose: 4 mg IVP over 2 minute(s), Site: #1 right AC. Medication Ordered: Zofran IV 4 mg (NOW).
--- NOTE | 2016-12-13 07:55 | ED MED RECONCILIATION SUMMARY ---
Patient: BIRD HENAO Medication Reconciliation Report [facility] VisitID: [id number] [address] [place] [address] 31y, F Registration Date/Time: 12/10/2016 Weight: 88.4 kg Height/Length: 68 in. BMI: 29.6 ALLERGIES: Azithromycin, Penicillins, Sulfa Antibiotics The patient's Home Medications are listed below: THE FOLLOWING MEDICATIONS NEED TO BE RECONCILED: Citalopram Hydrobromide Oral The source(s) of the original Home Medication information: Not obtained. The following Medications were given to the patient in the Emergency Department: IV NS IV Fluids bolus 1000 mL wide open, administered: 12/11/2016 12:23:00 AM MISOPROSTOL [WI] WI 800 mcg, administered: 12/11/2016 2:50:00 AM IV NS IV Fluids bolus 0, then 150 mL/hr, administered: 12/11/2016 2:51:00 AM Zofran [IVP] IVP 4 mg, administered: 12/11/2016 2:51:00 AM The following Medications were prescribed to the patient: None.
--- NOTE | 2016-12-13 16:17 | PROGRESS NOTE ---
DATE OF SERVICE: 12/11/2016 ATTENDING PHYSICIAN/PROVIDER: Duglas Sapp MD HISTORY OF PRESENT ILLNESS: This was an observation stay. The patient had a 6-7 weeks' gestation and was given medication, misoprostol 800 mcg in the office, which she did not take for a week and finally did , the week before this hospital visit. She stated she thought she lost tissue on Sunday, the day after she took the misoprostol after being seen in the office. Three or so days later she called me up and said she was bleeding heavily. She went to the emergency department. They noted she had no sac or tissue remaining from the previous 7 weeks' gestation demise noted. There was no products of conception and only blood clot. The patient was observed for several hours and had been suggested to give a repeat dose of misoprostol at 2 a.m., after her initial evaluation in the ED. Her 800 mcg of misoprostol was given NE (per rectum). I received a call at 6 a.m. approximately, and they said she was still bleeding. I came in and discussed the options with the patient. She was only 3 hours into the medication timing, and I advised her that no tissue was noted, and the likelihood of needing a D&C or conscious sedation with vaginal exam and tissue removal was unnecessary, but I gave her that option anyway. She elected to wait and see. I subsequently did a pelvic exam, which showed a closed cervical os. She sat on the floor for several hours, was in observation, and had good effect from the 2 a.m. dose of misoprostol. PLAN: She had no more bleeding and was discharged home early in the afternoon. Warnings and precautions were given. The patient will follow up in the next week. She was electing to have an IUD at that time.
[2017-01-31] MEDS ORDERED: CITALOPRAM HYDR40 MG PO (16:29)
== END 2016-12-11 13:40 | disposition home or self-care (01) ==
LOC: ED SRH 22:19 → TRANS SRH 12-11 07:35 → ACUTE2 SRH 12-11 08:38
PROVIDERS: ADMIT Family Medicine
DX: O03.4 Incomplete spontaneous abortion without complication (principal)
CPT/HCPCS: 29230; 90100; 90197; 95059

== ENCOUNTER 2017-01-26 10:44 | Outpatient (CLI) | payer OTHER ==
--- NOTE | 2017-01-26 13:21 | DIAGNOSTIC IMAGING REPORT ---
PROCEDURE: US COMPLETE PELVIC W/TRANSVAG INDICATION: PELVIC PAIN TECHNIQUE: Transabdominal and endovaginal andersen scale and color Doppler sonographic images of the female pelvis were obtained. COMPARISON: Pelvic ultrasound 12/11/2016 FINDINGS: TRANSABDOMINAL SCANS: The uterus is of normal size 6.1 x 5.0 x 4.5 cm Kidneys are normal. TRANSVAGINAL SCANS: The uterus is anteverted. Myometrium is normal. The endometrium measures 8.2 mm. There is small amount of echogenic debris in the canal which could possibly represent retained products. Right ovary is normal measuring 3.5 x 3.5 x 2.5 cm The left ovary is normal measuring 3.0 x 2.9 x 2.7 cm There is a trace of free fluid. There is an IUD in the lower uterine segment and cervical canal. IMPRESSION: 1. IUD in the lower uterine segment and cervical canal. 2. Small amount of echogenic debris in the endometrial canal. Possible retained products.
[2017-01-31] MEDS ORDERED: CITALOPRAM HYDR40 MG PO (16:29)
== END 2017-01-26 23:00 | disposition home or self-care (01) ==
LOC: US SRH 10:44
DX: R10.2 Pelvic and perineal pain (principal); Z97.5 Presence of (intrauterine) contraceptive device

== ENCOUNTER 2017-02-02 12:06 | Day surgery (SDC) | payer OTHER ==
[~2017-02-02] VITALS: Ht 175.3 cm; Wt 89.6 kg
[~2017-02-02 12:06] MED LIST: CITALOPRAM HYDR40 MG PO
--- NOTE | 2017-02-02 12:52 | Operative Report ---
Operative Report Date of Surgery: 02/02/17 Preoperate Diagnosis: 1. Missed 2. Retained products of conception Postoperative Diagnosis: 1. Missed 2. Retained products of conception Surgeon: Sania Gallegos Procedure Performed: 1. Suction, Dilation and Curettage Anesthesia: General, laryngeal mask Indications: Spontaneous with retained products of conception Surgical Technique: The patient was taken to the OR where general anesthesia with laryngeal mask was administered without difficulty. She was then placed in the dorsal lithotomy position and her vaginal was prepped and draped in the normal sterile fashion. A straight catheter was used to empty the bladder. A time out was performed. An operative speculum was placed in the vagina and a single tooth tenaculum was used to grasp the cervix at the 12 o'clock position. Jemima dilators were then used to dilate the cervix to allow for entry of a 10 canula for the suction. Under abdominal ultrasound guidence suction curettage was performed. This was followed by sharp curettage. All tissue was submitted in one specimen container as POC. Following the procedure the uterus appeared to have a clean endometrial stripe. The tenaculum and speculum were removed. The patient was cleaned and legs were taken out of lithotomy. She was awoken from general anesthesia and taken to the PACU in stable condition. All sponge and lap counts were correct. Findings 1. Uterus sounded to 10 cm
[2017-02-02] MEDS ORDERED: NORCO1 TA1 PO ×2 (13:57→14:30)
[2017-02-02] MEDS ORDERED: FLAGYL500 MG PO ×2 (14:00→14:30)
[2017-02-02] MEDS ORDERED: DOXYCYCLINE100 MG PO ×2 (14:07→14:30)
[2017-02-02] MEDS ORDERED: DIFLUCAN150 MG PO ×2 (14:08→14:30)
[2017-02-02] MEDS ORDERED: IBUPROFEN600 MG PO ×2 (14:09→14:30)
--- NOTE | 2017-02-02 14:50 | Provider's Discharge Care Plan ---
Problem, Goal, Plan Problem List 1. Status post D&C Goals: Improve disease control, Therapeutic intervention Instructions: Follow up as directed, Take meds as directed
--- NOTE | 2017-02-02 14:50 | Provider's Discharge Care Plan ---
Problem, Goal, Plan Problem List 1. Status post D&C Goals: Improve disease control, Therapeutic intervention Instructions: Follow up as directed, Take meds as directed
[2017-02-02 15:49] VITALS: BP 120/72
--- NOTE | 2017-02-06 13:11 | DIAGNOSTIC IMAGING REPORT ---
PROCEDURE: US INTRAOPERATIVE GUIDANCE demise. TECHNIQUE: Intraoperative transabdominal scans were provided to Dr. Gallegos four surgical procedure. COMPARISON: Comparison is made to pelvic ultrasound 01/26/2017. FINDINGS: Surgical probe/instrument can be seen within the endometrial canal with evacuation of tissue. IMPRESSION: 1. Intraoperative ultrasound guidance for endometrial surgical procedure (performed by Dr. Gallegos).
== END 2017-02-02 16:10 | disposition home or self-care (01) ==
LOC: OR SRH 12:06 → SCU SRH 12:07 → OR SRH 14:00
PROVIDERS: Obstetrics & Gynecology
PROC: 10D17ZZ Extraction of Products of Conception, Retained, Via Natural or Artificial Opening (ICD-10-PCS; principal; 2017-02-02 14:00)
DX: O03.4 Incomplete spontaneous abortion without complication (principal)
CPT/HCPCS: 29229; 29240; 50004; 60001; 70002; 80575; 81300; 81615

== ENCOUNTER 2017-02-04 12:35 | Emergency (ER) | payer OTHER ==
[~2017-02-04 12:35] MED LIST changes: +DIFLUCAN150 MG PO; +DOXYCYCLINE100 MG PO; +FLAGYL500 MG PO; +IBUPROFEN600 MG PO; +NORCO1 TA1 PO
--- NOTE | 2017-02-04 13:50 | ED NURSING NOTES ---
Clinical Report - [facility] [address] [place] [address] 02/04/2017 12:36 Patient: BIRD HENAO TRIAGE Triage time 12:42. Acuity: LEVEL 3. Chief Complaint: DIZZINESS and NUMBNESS (post D&C done on Sunday). Alert. No acute distress. ( Pt states, "Sunday I had a D&C and the found an infection in there, the has me on two different antibiotics and then this morning I started feeling a little numb, dizzy and completely out of it." Pt. said she is on Doxycycline and on flagyl. She did consult with Dr. Gallegos over the phone PILOT BOAT DECKHAND and she was instructed to be eval. in the ED.). SEPSIS SCREEN: Sepsis Screen. Negative (no infection suspected/documented). EZEQUIEL COMA SCORE: Ezequiel Coma Scale: 15- eyes open spontaneously (4); best verbal response- oriented x 4 (5); best motor response- obeys commands (6). --12:47 Roseann Bradley R.N. 12:41 02/04/17. BP: 132/75. HR: 91. RR: 18. O2 saturation: 100%. Temp: 98.6 F. Pain level now 0/10. --12:47 Roseann Bradley R.N. Weight: 88.4 kg stated. Height/Length: 69 inches Per Patient. BMI: 28.8. --12:44 Roseann Bradley R.N. Medications Doxycycline x2 daily. --12:45 Roseann Bradley R.N. Flagyl Oral 500 mg, 2x a day. --12:45 Roseann Bradley R.N. Citalopram Hydrobromide Oral. --12:46 Roseann Bradley R.N. Allergies Penicillins. --12:46 Roseann Bradley R.N. Sulfa Antibiotics. --12:46 Roseann Bradley R.N. Azithromycin. (medication reaction to Citalopram) --12:46 Roseann Bradley R.N. History Arrived by private vehicle. Historian: patient. Accompanied by spouse. Primary physician (Dr. Gallegos). This started today. Treatment PILOT BOAT DECKHAND: None. PAST MEDICAL HX: Immunizations: up-to-date. Last normal menstrual period- 2016. 1. Para 1. Abortions 3. SOCIAL HX: Never smoker. Occasional alcohol use. No drug use. No infectious disease exposure. ABUSE ASSESSMENT: Abuse assessment: The patient was asked "Do you feel safe in your home?" and "Has anyone hurt you or threatened to hurt you?". No report of abuse. NUTRITIONAL RISK ASSESSMENT: The nutritional risk assessment revealed no deficiencies. FUNCTIONAL ASSESSMENT: Functional assessment: no impairments noted. LEARNING NEEDS ASSESSMENT: The learning needs assessment revealed no barriers. --12:47 Roseann Bradley R.N. PROBLEMS: Spontaneous (Miscarriage). . Depression. Chronic Headache. Anxiety Reaction. Migraine Headache. --12:46 Roseann Bradley R.N. ADDITIONAL SURGERIES: Adenoidectomy. . Dilatation & Curettage. Slap lesion repair. Tonsillectomy. Tonsillectomy & Adenoidectomy. --12:46 Roseann Bradley R.N. Interventions ID band on patient. Ambulatory. --12:47 Roseann Bradley R.N. PHYSICAL ASSESSMENT Ambulatory to room. ( pt. states she is spotting. Denies abd. cramping.). GENERAL / NEURO / PSYCH: Alert. Appears in no acute distress. RESPIRATORY: Respirations not labored. CVS: Capillary refill less than 2 seconds. Pulses within normal limits. GI / : Abdomen soft and nontender. SKIN: Skin intact. Skin is warm and dry. --12:48 Roseann Bradley R.N. NURSING PROGRESS NOTES Patient gowned. Head of bed elevated. Two patient identifiers checked. Call light placed in reach. Side rails up x 2. Bed placed in lowest position. Brakes of bed on. Patient ready for evaluation- chart flagged. --12:48 Roseann Bradley R.N. 12:48. dental assistant medical assistant, pulse oximeter and NIBP monitor placed on patient; field representative- Lead II; monitor alarms on. --12:57 Roseann Bradley R.N. 12:57 02/04/2017 Site #1 started via IV in the right antecubital space with an 20g angiocath, with aseptic technique and good blood return; one attempt. Blood drawn: rainbow set. Labeled in the presence of the patient and sent to the lab. Saline lock flushed with 10 mL saline. --12:58 Roseann Bradley R.N. Patient ID band checked for patient name and birthdate: patient confirmed urine collected with return of yellow-colored clear urine; sample sent to lab for urinalysis and culture. Specimen labeled in the presence of the patient. --13:06 Taryn Carson 13:56 02/04/2017 Site #1 removed upon discharge. Bandaid applied. --14:01 Jorge Walker R.N. 13:56 02/04/2017 IV Saline Lock Drip IV Discontinued: bag #1 upon discharge. Total amount infused: 0 mL. IV patency established. IV site checked: no pain, redness, or swelling. IV flushed thoroughly. --14:01 Jorge Walker R.N. DISPOSITION / DISCHARGE Condition at departure: improved. No learning barriers present. Discharge instructions provided and reviewed with the patient and family. Patient verbalized understanding. Written instructions provided in Kinyarwanda. The patient was discharged by the physician. She was discharged home and accompanied by spouse. She left the Emergency Department ambulatory and via private vehicle. Family member driving. ( pt provided dc and f/u instructions from OB- pt reports a scheduled apt with "a specialist" pt tearful upon dc, but reports "I do feel better after talking to my OB" pt ambulatory to lobby with steady gait,). FALL RISK ASSESSMENT: Fall risk assessment completed. No fall risk identified. --14:06 Jorge Walker R.N. 14:00 02/04/17. BP: 128/74. HR: 84. RR: 17. O2 saturation: 100%. Temp: 98.3 F. Pain level now 0/10. --14:06 Jorge Walker R.N. Locked/Released at 02/07/2017 7:59 by Monserrat Maya R.N.
--- NOTE | 2017-02-04 13:50 | ED ORDER SUMMARY ---
..... Patient: BIRD HENAO OrderSheet [facility] VisitID: [id number] [place] [address] 31y, F Registration Date/Time: 02/04/2017 ORDER SHEET Weight: 88.4 kg (stated) Allergies: Penicillins, Sulfa Antibiotics, Azithromycin GENERAL ORDERS: Assembler Camper (Continuous) (12:42 02/04/2017 Guzman TEIXEIRA) (12:58 SReitz R.N.) CBC w Diff Urgent (12:42 02/04/2017 Guzman TEIXEIRA) (Ack 12:46 RKkyleuga) (12:58 SReitz R.N.) CMP Urgent (12:42 02/04/2017 Guzman TEIXEIRA) (Ack 12:46 RKlazara) (12:58 SReitz R.N.) UA-Culture if indicated Urgent (12:42 02/04/2017 Guzman TEIXEIRA) (Ack 12:46 RKlazara) (13:05 RKaruga) Amylase Urgent (12:42 02/04/2017 Guzman TEIXEIRA) (Ack 12:46 Renaldo) (12:58 SReitz R.N.) Lipase Urgent (12:42 02/04/2017 Guzman TEIXEIRA) (Ack 12:46 RKkyleuga) (12:58 SReitz R.N.) Vitals - Orthostatic (12:42 02/04/2017 Guzman TEIXEIRA) (12:58 SReitz R.N.) Urine Urgent (12:48 02/04/2017 Guzman TEIXEIRA) (Ack 12:54 RKkyleuga) (13:05 RKaruga) MEDICATION ORDERS: IV FLUIDS: IV Saline Lock (12:42 02/04/2017 Guzman TEIXEIRA) (12:58 SReitz R.N.) ORDER SHEET NOTES: [Electronically signed by Yunior Falk MD (14:11 02/04/2017)] [Electronically signed by Monserrat Maya R.N. (07:59 02/07/2017)] [Electronically locked/signed by Monserrat Maya R.N. (07:59 02/07/2017)]
--- NOTE | 2017-02-04 13:50 | ED ORDER SUMMARY ---
..... Patient: BIRD HENAO OrderSheet [facility] VisitID: [id number] [place] [address] 31y, F Registration Date/Time: 02/04/2017 ORDER SHEET Weight: 88.4 kg (stated) Allergies: Penicillins, Sulfa Antibiotics, Azithromycin GENERAL ORDERS: Medical Investigator (Continuous) (12:42 02/04/2017 Guzman TEIXEIRA) (12:58 SReitz R.N.) CBC w Diff Urgent (12:42 02/04/2017 Guzman TEIXEIRA) (Ack 12:46 RKkyleuga) (12:58 SReitz R.N.) CMP Urgent (12:42 02/04/2017 Guzman TEIXEIRA) (Ack 12:46 RKlazara) (12:58 SReitz R.N.) UA-Culture if indicated Urgent (12:42 02/04/2017 Guzman TEIXEIRA) (Ack 12:46 RKlazara) (13:05 RKaruga) Amylase Urgent (12:42 02/04/2017 Guzman TEIXEIRA) (Ack 12:46 Renaldo) (12:58 SReitz R.N.) Lipase Urgent (12:42 02/04/2017 Guzman TEIXEIRA) (Ack 12:46 RKkyleuga) (12:58 SReitz R.N.) Vitals - Orthostatic (12:42 02/04/2017 Guzman TEIXEIRA) (12:58 SReitz R.N.) Urine Urgent (12:48 02/04/2017 Guzman TEIXEIRA) (Ack 12:54 RKkyleuga) (13:05 RKaruga) MEDICATION ORDERS: IV FLUIDS: IV Saline Lock (12:42 02/04/2017 Guzman TEIXEIRA) (12:58 SReitz R.N.) ORDER SHEET NOTES: [Electronically signed by Yunior Falk MD (14:11 02/04/2017)] [Electronically signed by Monserrat Maya R.N. (07:59 02/07/2017)] [Electronically locked/signed by Monserrat Maya R.N. (07:59 02/07/2017)]
--- NOTE | 2017-02-04 13:50 | ED CLINICAL REPORT ---
Clinical Report - Physicians/Mid Levels [facility] [address] [place] [address] 02/04/2017 12:36 Patient: BIRD HENAO Time Seen: 12:41. Arrived- By private vehicle. Historian- patient. HISTORY OF PRESENT ILLNESS Chief Complaint: DIZZINESS. Described as feeling light-headed. This started today and is still present. It was gradual in onset and has been waxing/waning. Severity described as mild at its maximum. When seen in the E.D., severity described as mild. No tinnitus or ear pain. (patient had a miscarriage in November of this year. She apparently had retained products of conception was treated with misoprostol. She had resolution of her vaginal bleeding and subsequently had an IUD placed. However she was having problems with this and an ultrasound demonstrated that it was not in the proper position and they also noted that she still had some retained products of conception on that ultrasound. Therefore Dr. Alonso removed the IUD and 2 days ago did a D&C. The patient has been taking doxycycline and Flagyl since the procedure. She had been prescribed some [place] for pain but has not used it. This morning she became concerned as she has been feeling lightheaded and dizzy and has had some numbness and tingling in her cheeks hands and feet.). REVIEW OF SYSTEMS The patient has had abnormal vaginal bleeding (Scant spotting since the D&C). No chills, fever, sweats, calf pain or chest pain. No cough, difficulty breathing, pedal edema, palpitations or abdominal pain. No vaginal discharge. The patient has had numbness of the right face (mild), right hand (mild), right foot (mild), left hand (mild) and left foot (mild). All systems otherwise negative, except as recorded above. PAST HISTORY ( PCP - HENRIK SABA). Problems: Spontaneous (Miscarriage). . Depression. Chronic Headache. Immunizations. . Anxiety Reaction. Migraine Headache. Additional Surgeries: Adenoidectomy. . Dilatation & Curettage. Slap lesion repair. Tonsillectomy. Tonsillectomy & Adenoidectomy. Medications: Citalopram Hydrobromide Oral. Flagyl Oral 500 mg, 2x a day. Doxycycline x2 daily. Allergies: Azithromycin. (medication reaction to Citalopram) Penicillins. Sulfa Antibiotics. SOCIAL HISTORY Never smoker. Occasional alcohol use. No drug use. FAMILY HISTORY No significant family medical history. ADDITIONAL NOTES The nursing notes have been reviewed. PHYSICAL EXAM Vital Signs: 02/04/2017 12:41 BP: 132/75. HR: 91. RR: 18. O2 saturation: 100%. Temp: 98.6 F. Have been reviewed. Appearance: Alert. Anxious. Eyes: Pupils equal, round and reactive to light. No nystagmus. ENT: Normal ENT inspection. Pharynx normal. Neck: Normal inspection. Neck supple. CVS: Normal heart rate and rhythm. Heart sounds normal. Respiratory: No respiratory distress. Breath sounds normal. Abdomen: Soft and nontender. No organomegaly. Back: Normal inspection. Skin: Skin warm and dry. Normal skin color. No rash. Normal skin turgor. Extremities: Extremities exhibit normal ROM. No lower extremity edema. Neuro: Alert. Cranial nerves normal (as tested). No cerebellar findings. No motor deficit. No sensory deficit. LABS, X-RAYS, AND EKG Laboratory Tests: UA-Culture if indicated: (QUANG: 02/04/2017 13:00) ( MsgRcvd 02/04/2017 13:27) Final results Test Result Flag Units (Reference) URINE COLOR YELLOW URINE APPEARANCE CLEAR URINE GLUCOSE NEGATIVE (NEGATIVE) URINE BILIRUBIN NEGATIVE (NEGATIVE) URINE KETONE NEGATIVE (NEGATIVE) URINE SPECIFIC GRAVITY 1.015 (1.010-1.030) URINE PH 5.5 (5.0-8.0) URINE PROTEIN NEGATIVE (NEGATIVE) URINE UROBILINOGEN 0.2 EU/dL (0.2-1.0) URINE NITRITE NEGATIVE (NEGATIVE) URINE BLOOD TRACE-INTACT (NEGATIVE) URINE LEUK ESTERASE NEGATIVE (NEGATIVE) URINE RBC 0-1 rbc/hpf (0-1) URINE WBC 0-1 wbc/hpf (0-1) URINE EPITHELIAL CELLS 1-3 EPI/hpf (0-5) URINE BACTERIA TRACE (<1+) (NONE SEEN) URINE COMMENT CULT NOT INDICATED URINE CULTURES ARE SET-UP BASED ON THE FOLLOWING CRITERIA:POSITIVE NITRITEPOSITIVE LEUKOCYTE ESTERASEGREATER THAN 10 WHITE BLOOD CELLSMODERATE (2+) OR GREATER BACTERIA Urine: (QUANG: 02/04/2017 13:00) ( [facility] 02/04/2017 13:20) Final results Test Result Flag Units (Reference) URINE NEGATIVE CBC w Diff: (QUANG: 02/04/2017 12:55) ( [facility] 02/04/2017 13:20) Final results Test Result Flag Units (Reference) WHITE BLOOD COUNT 8.3 K/uL (4.5-11.5) RED BLOOD COUNT 3.87 L M/uL (4.00-5.20) HEMOGLOBIN 9.6 L gm/dL (12.0-16.0) HEMATOCRIT 30.3 L % (36.0-46.0) MEAN CELL VOLUME 78 L fL (80-100) MEAN CORPUSCULAR HGB 25 L pg (26-34) MEAN CORPUSCULAR HGB CONC 32 g/dL (31-37) RED CELL DISTRIBUTION WIDTH 18.8 H % (11.6-14.8) PLATELET COUNT 341 K/uL (150-400) NEUTROPHIL % 56.2 % (50-75) LYMPH % 33.7 % (25-40) MONO % 8.3 % (3-14) EOSINOPHIL % 1.2 % (0-4) BASOPHIL % 0.6 % (0-2) CMP: (QUANG: 02/04/2017 12:55) ( [facility] 02/04/2017 13:33) Final results Test Result Flag Units (Reference) GLUCOSE 104 mg/dL (70-110) BUN 13 mg/dL (7-18) CREATININE 0.9 mg/dL (0.6-1.3) Estimated GFR >60 mL/min Estimated GFR- >60 mL/min Note: Persistent reduction over 3 months in eGFR<60 mL/min/1.73 m2 defines CKD. Patients with eGFR values>=60 mL/min/1.73 m2 may also have CKD if evidence ofpersistent proteinuria. Additional information may be foundat www.kidney.org. SODIUM 140 mmol/L (136-145) POTASSIUM 3.5 mmol/L (3.5-5.1) CHLORIDE 104 mmol/L (98-107) CARBON DIOXIDE 25 mmol/L (21-32) CALCIUM 8.8 mg/dL (8.5-10.1) TOTAL PROTEIN 8.1 g/dL (6.4-8.2) ALBUMIN 3.8 g/dL (3.3-5.0) BILIRUBIN, TOTAL 0.4 mg/dL (0.0-1.0) ALKALINE PHOSPHATASE 93 U/L (46-116) AST (SGOT) 17 U/L (15-37) ALT (SGPT) 25 U/L (12-78) LIPASE 208 U/L (73-393) AMYLASE 54 U/L (25-115) . PROGRESS AND PROCEDURES Course of Care: Patient is stable. Consult obtained from OB-VOCATIONAL PSYCHOLOGIST. Dr. Gallegos. Consultation performed in ED. Patient/family counseled. Old medical records reviewed. Disposition: Discharged. Condition: stable. CLINICAL IMPRESSION Anxiety reaction. INSTRUCTIONS Drink plenty of fluids. Warnings: Further evaluation is necessary. GENERAL WARNINGS: Return or contact your physician immediately if your condition worsens or changes unexpectedly, if not improving as expected, or if other problems arise. Follow-up: Follow up with your doctor HENRIK SABA in ten days. Call for the next available appointment. Follow up with a specialist Dr. Gallegos as scheduled. Understanding of the discharge instructions verbalized by patient. (Electronically signed by Yunior Falk MD 02/04/2017 14:11)
--- NOTE | 2017-02-04 13:50 | ED CLINICAL REPORT ---
Clinical Report - Physicians/Mid Levels [facility] [address] [place] [address] 02/04/2017 12:36 Patient: BIRD HENAO Time Seen: 12:41. Arrived- By private vehicle. Historian- patient. HISTORY OF PRESENT ILLNESS Chief Complaint: DIZZINESS. Described as feeling light-headed. This started today and is still present. It was gradual in onset and has been waxing/waning. Severity described as mild at its maximum. When seen in the E.D., severity described as mild. No tinnitus or ear pain. (patient had a miscarriage in November of this year. She apparently had retained products of conception was treated with misoprostol. She had resolution of her vaginal bleeding and subsequently had an IUD placed. However she was having problems with this and an ultrasound demonstrated that it was not in the proper position and they also noted that she still had some retained products of conception on that ultrasound. Therefore Dr. Alonso removed the IUD and 2 days ago did a D&C. The patient has been taking doxycycline and Flagyl since the procedure. She had been prescribed some [place] for pain but has not used it. This morning she became concerned as she has been feeling lightheaded and dizzy and has had some numbness and tingling in her cheeks hands and feet.). REVIEW OF SYSTEMS The patient has had abnormal vaginal bleeding (Scant spotting since the D&C). No chills, fever, sweats, calf pain or chest pain. No cough, difficulty breathing, pedal edema, palpitations or abdominal pain. No vaginal discharge. The patient has had numbness of the right face (mild), right hand (mild), right foot (mild), left hand (mild) and left foot (mild). All systems otherwise negative, except as recorded above. PAST HISTORY ( PCP - HENRIK SABA). Problems: Spontaneous (Miscarriage). . Depression. Chronic Headache. Immunizations. . Anxiety Reaction. Migraine Headache. Additional Surgeries: Adenoidectomy. . Dilatation & Curettage. Slap lesion repair. Tonsillectomy. Tonsillectomy & Adenoidectomy. Medications: Citalopram Hydrobromide Oral. Flagyl Oral 500 mg, 2x a day. Doxycycline x2 daily. Allergies: Azithromycin. (medication reaction to Citalopram) Penicillins. Sulfa Antibiotics. SOCIAL HISTORY Never smoker. Occasional alcohol use. No drug use. FAMILY HISTORY No significant family medical history. ADDITIONAL NOTES The nursing notes have been reviewed. PHYSICAL EXAM Vital Signs: 02/04/2017 12:41 BP: 132/75. HR: 91. RR: 18. O2 saturation: 100%. Temp: 98.6 F. Have been reviewed. Appearance: Alert. Anxious. Eyes: Pupils equal, round and reactive to light. No nystagmus. ENT: Normal ENT inspection. Pharynx normal. Neck: Normal inspection. Neck supple. CVS: Normal heart rate and rhythm. Heart sounds normal. Respiratory: No respiratory distress. Breath sounds normal. Abdomen: Soft and nontender. No organomegaly. Back: Normal inspection. Skin: Skin warm and dry. Normal skin color. No rash. Normal skin turgor. Extremities: Extremities exhibit normal ROM. No lower extremity edema. Neuro: Alert. Cranial nerves normal (as tested). No cerebellar findings. No motor deficit. No sensory deficit. LABS, X-RAYS, AND EKG Laboratory Tests: UA-Culture if indicated: (QUANG: 02/04/2017 13:00) ( MsgRcvd 02/04/2017 13:27) Final results Test Result Flag Units (Reference) URINE COLOR YELLOW URINE APPEARANCE CLEAR URINE GLUCOSE NEGATIVE (NEGATIVE) URINE BILIRUBIN NEGATIVE (NEGATIVE) URINE KETONE NEGATIVE (NEGATIVE) URINE SPECIFIC GRAVITY 1.015 (1.010-1.030) URINE PH 5.5 (5.0-8.0) URINE PROTEIN NEGATIVE (NEGATIVE) URINE UROBILINOGEN 0.2 EU/dL (0.2-1.0) URINE NITRITE NEGATIVE (NEGATIVE) URINE BLOOD TRACE-INTACT (NEGATIVE) URINE LEUK ESTERASE NEGATIVE (NEGATIVE) URINE RBC 0-1 rbc/hpf (0-1) URINE WBC 0-1 wbc/hpf (0-1) URINE EPITHELIAL CELLS 1-3 EPI/hpf (0-5) URINE BACTERIA TRACE (<1+) (NONE SEEN) URINE COMMENT CULT NOT INDICATED URINE CULTURES ARE SET-UP BASED ON THE FOLLOWING CRITERIA:POSITIVE NITRITEPOSITIVE LEUKOCYTE ESTERASEGREATER THAN 10 WHITE BLOOD CELLSMODERATE (2+) OR GREATER BACTERIA Urine: (QUANG: 02/04/2017 13:00) ( [facility] 02/04/2017 13:20) Final results Test Result Flag Units (Reference) URINE NEGATIVE CBC w Diff: (QUANG: 02/04/2017 12:55) ( [facility] 02/04/2017 13:20) Final results Test Result Flag Units (Reference) WHITE BLOOD COUNT 8.3 K/uL (4.5-11.5) RED BLOOD COUNT 3.87 L M/uL (4.00-5.20) HEMOGLOBIN 9.6 L gm/dL (12.0-16.0) HEMATOCRIT 30.3 L % (36.0-46.0) MEAN CELL VOLUME 78 L fL (80-100) MEAN CORPUSCULAR HGB 25 L pg (26-34) MEAN CORPUSCULAR HGB CONC 32 g/dL (31-37) RED CELL DISTRIBUTION WIDTH 18.8 H % (11.6-14.8) PLATELET COUNT 341 K/uL (150-400) NEUTROPHIL % 56.2 % (50-75) LYMPH % 33.7 % (25-40) MONO % 8.3 % (3-14) EOSINOPHIL % 1.2 % (0-4) BASOPHIL % 0.6 % (0-2) CMP: (QUANG: 02/04/2017 12:55) ( [facility] 02/04/2017 13:33) Final results Test Result Flag Units (Reference) GLUCOSE 104 mg/dL (70-110) BUN 13 mg/dL (7-18) CREATININE 0.9 mg/dL (0.6-1.3) Estimated GFR >60 mL/min Estimated GFR- >60 mL/min Note: Persistent reduction over 3 months in eGFR<60 mL/min/1.73 m2 defines CKD. Patients with eGFR values>=60 mL/min/1.73 m2 may also have CKD if evidence ofpersistent proteinuria. Additional information may be foundat www.kidney.org. SODIUM 140 mmol/L (136-145) POTASSIUM 3.5 mmol/L (3.5-5.1) CHLORIDE 104 mmol/L (98-107) CARBON DIOXIDE 25 mmol/L (21-32) CALCIUM 8.8 mg/dL (8.5-10.1) TOTAL PROTEIN 8.1 g/dL (6.4-8.2) ALBUMIN 3.8 g/dL (3.3-5.0) BILIRUBIN, TOTAL 0.4 mg/dL (0.0-1.0) ALKALINE PHOSPHATASE 93 U/L (46-116) AST (SGOT) 17 U/L (15-37) ALT (SGPT) 25 U/L (12-78) LIPASE 208 U/L (73-393) AMYLASE 54 U/L (25-115) . PROGRESS AND PROCEDURES Course of Care: Patient is stable. Consult obtained from OB-NEEDLE LOOM OPERATOR. Dr. Gallegos. Consultation performed in ED. Patient/family counseled. Old medical records reviewed. Disposition: Discharged. Condition: stable. CLINICAL IMPRESSION Anxiety reaction. INSTRUCTIONS Drink plenty of fluids. Warnings: Further evaluation is necessary. GENERAL WARNINGS: Return or contact your physician immediately if your condition worsens or changes unexpectedly, if not improving as expected, or if other problems arise. Follow-up: Follow up with your doctor HENRIK SABA in ten days. Call for the next available appointment. Follow up with a specialist Dr. Gallegos as scheduled. Understanding of the discharge instructions verbalized by patient. (Electronically signed by Yunior Falk MD 02/04/2017 14:11)
--- NOTE | 2017-02-04 13:50 | ED NURSING NOTES ---
Clinical Report - Nurses [facility] [address] [place] [address] 02/04/2017 12:36 Patient: BIRD HENAO TRIAGE Triage time 12:42. Acuity: LEVEL 3. Chief Complaint: DIZZINESS and NUMBNESS (post D&C done on Sunday). Alert. No acute distress. ( Pt states, "Sunday I had a D&C and the found an infection in there, the has me on two different antibiotics and then this morning I started feeling a little numb, dizzy and completely out of it." Pt. said she is on Doxycycline and on flagyl. She did consult with Dr. Gallegos over the phone SUPERVISOR UNLOADING and she was instructed to be eval. in the ED.). SEPSIS SCREEN: Sepsis Screen. Negative (no infection suspected/documented). EZEQUIEL COMA SCORE: Ezequiel Coma Scale: 15- eyes open spontaneously (4); best verbal response- oriented x 4 (5); best motor response- obeys commands (6). --12:47 Roseann Bradley R.N. 12:41 02/04/17. BP: 132/75. HR: 91. RR: 18. O2 saturation: 100%. Temp: 98.6 F. Pain level now 0/10. --12:47 Roseann Bradley R.N. Weight: 88.4 kg stated. Height/Length: 69 inches Per Patient. BMI: 28.8. --12:44 Roseann Bradley R.N. Medications Doxycycline x2 daily. --12:45 Roseann Bradley R.N. Flagyl Oral 500 mg, 2x a day. --12:45 Roseann Bradley R.N. Citalopram Hydrobromide Oral. --12:46 Roseann Bradley R.N. Allergies Penicillins. --12:46 Roseann Bradley R.N. Sulfa Antibiotics. --12:46 Roseann Bradley R.N. Azithromycin. (medication reaction to Citalopram) --12:46 Roseann Bradley R.N. History Arrived by private vehicle. Historian: patient. Accompanied by spouse. Primary physician (Dr. Gallegos). This started today. Treatment SUPERVISOR UNLOADING: None. PAST MEDICAL HX: Immunizations: up-to-date. Last normal menstrual period- 2016. 1. Para 1. Abortions 3. SOCIAL HX: Never smoker. Occasional alcohol use. No drug use. No infectious disease exposure. ABUSE ASSESSMENT: Abuse assessment: The patient was asked "Do you feel safe in your home?" and "Has anyone hurt you or threatened to hurt you?". No report of abuse. NUTRITIONAL RISK ASSESSMENT: The nutritional risk assessment revealed no deficiencies. FUNCTIONAL ASSESSMENT: Functional assessment: no impairments noted. LEARNING NEEDS ASSESSMENT: The learning needs assessment revealed no barriers. --12:47 Roseann Bradley R.N. PROBLEMS: Spontaneous (Miscarriage). . Depression. Chronic Headache. Anxiety Reaction. Migraine Headache. --12:46 Roseann Bradley R.N. ADDITIONAL SURGERIES: Adenoidectomy. . Dilatation & Curettage. Slap lesion repair. Tonsillectomy. Tonsillectomy & Adenoidectomy. --12:46 Roseann Bradley R.N. Interventions ID band on patient. Ambulatory. --12:47 Roseann Bradley R.N. PHYSICAL ASSESSMENT Ambulatory to room. ( pt. states she is spotting. Denies abd. cramping.). GENERAL / NEURO / PSYCH: Alert. Appears in no acute distress. RESPIRATORY: Respirations not labored. CVS: Capillary refill less than 2 seconds. Pulses within normal limits. GI / : Abdomen soft and nontender. SKIN: Skin intact. Skin is warm and dry. --12:48 Roseann Bradley R.N. NURSING PROGRESS NOTES Patient gowned. Head of bed elevated. Two patient identifiers checked. Call light placed in reach. Side rails up x 2. Bed placed in lowest position. Brakes of bed on. Patient ready for evaluation- chart flagged. --12:48 Roseann Bradley R.N. 12:48. railway switch operator, pulse oximeter and NIBP monitor placed on patient; line appliance assembler- Lead II; monitor alarms on. --12:57 Roseann Bradley R.N. 12:57 02/04/2017 Site #1 started via IV in the right antecubital space with an 20g angiocath, with aseptic technique and good blood return; one attempt. Blood drawn: rainbow set. Labeled in the presence of the patient and sent to the lab. Saline lock flushed with 10 mL saline. --12:58 Roseann Bradley R.N. Patient ID band checked for patient name and birthdate: patient confirmed urine collected with return of yellow-colored clear urine; sample sent to lab for urinalysis and culture. Specimen labeled in the presence of the patient. --13:06 Taryn Carson 13:56 02/04/2017 Site #1 removed upon discharge. Bandaid applied. --14:01 Jorge Walker R.N. 13:56 02/04/2017 IV Saline Lock Drip IV Discontinued: bag #1 upon discharge. Total amount infused: 0 mL. IV patency established. IV site checked: no pain, redness, or swelling. IV flushed thoroughly. --14:01 Jorge Walker R.N. DISPOSITION / DISCHARGE Condition at departure: improved. No learning barriers present. Discharge instructions provided and reviewed with the patient and family. Patient verbalized understanding. Written instructions provided in Yoruba. The patient was discharged by the physician. She was discharged home and accompanied by spouse. She left the Emergency Department ambulatory and via private vehicle. Family member driving. ( pt provided dc and f/u instructions from OB- pt reports a scheduled apt with "a specialist" pt tearful upon dc, but reports "I do feel better after talking to my OB" pt ambulatory to lobby with steady gait,). FALL RISK ASSESSMENT: Fall risk assessment completed. No fall risk identified. --14:06 Jorge Walker R.N. 14:00 02/04/17. BP: 128/74. HR: 84. RR: 17. O2 saturation: 100%. Temp: 98.3 F. Pain level now 0/10. --14:06 Jorge Walker R.N. Locked/Released at 02/07/2017 7:59 by Monserrat Maya R.N.
--- NOTE | 2017-02-07 07:59 | ED MED RECONCILIATION SUMMARY ---
Patient: BIRD HENAO Medication Reconciliation Report [facility] VisitID: [id number] [address] [place] [address] 31y, F Registration Date/Time: 02/04/2017 Weight: 88.4 kg Height/Length: 69 in. BMI: 28.8 ALLERGIES: Azithromycin, Penicillins, Sulfa Antibiotics The patient's Home Medications are listed below: THE FOLLOWING MEDICATIONS NEED TO BE RECONCILED: Citalopram Hydrobromide Oral Doxycycline x2 daily Flagyl Oral 500 mg, 2x a day The source(s) of the original Home Medication information: Not obtained. The following Medications were given to the patient in the Emergency Department: None. The following Medications were prescribed to the patient: None.
--- NOTE | 2017-02-07 07:59 | ED DISCHARGE INSTRUCTIONS ---
Patient: BIRD HENAO General Instructions [facility] VisitID: [id number] [place] [address] 31y, F Registration Date/Time: 02/04/2017 Anxiety reaction. INSTRUCTIONS Drink plenty of fluids. Warnings: Further evaluation is necessary. GENERAL WARNINGS: Return or contact your physician immediately if your condition worsens or changes unexpectedly, if not improving as expected, or if other problems arise. Follow-up: Follow up with your doctor HENRIK SABA in ten days. Call for the next available appointment. Follow up with a specialist Dr. Gallegos as scheduled. Understanding of the discharge instructions verbalized by patient. ADDITIONAL INFORMATION Stress Reaction Anxiety is the feeling we all get when we think something bad might happen. It is a normal response to stress and usually causes only a mild reaction. When anxiety becomes more severe, emotions may interfere with daily life. In some cases, you may not even be aware of what it is youre anxious about! During an anxiety reaction, you may feel like you are helpless, nervous, depressed or irritable. Your body may show signs of anxiety in many ways. You may experience dry mouth, shakiness, dizziness, weakness, trouble breathing, chest pressure, headache, nausea, diarrhea, tiredness, inability to sleep or sexual problems. Home Care: 1) Try to locate the sources of stress in your life. They may not be obvious! These may include: -- Daily hassles of life which pile up (traffic jams, missed appointments, car troubles, etc.) -- Major life changes, both good (new baby, job promotion) and bad (loss of job, loss of loved one) -- Overload: feeling that you have too many responsibilities and can't take care of all of them at once -- Feeling helpless, feeling that your problems are beyond what youre able to solve 2) Notice how your body reacts to stress. Learn to listen to your body signals. This will help you take action before the stress becomes severe. 3) When you can, do something about the source of your stress. (Avoid hassles, limit the amount of change that happens in your life at one time and take a break when you feel overloaded). 4) Unfortunately, many stressful situations cannot be avoided. It is necessary to learn HOW TO MANAGE STRESS better. There are many proven methods that will reduce your anxiety. These include simple things like exercise, good nutrition and adequate rest. Also, there are certain techniques that are helpful: relaxation and breathing exercises, visualization, biofeedback and meditation. For more information about this, consult your doctor or go to a local bookstore and review the many books and tapes available on this subject. Follow Up If you feel that your anxiety is not responding to self-help measures, contact your doctor or make an appointment with a counselor. Get Prompt Medical Attention if any of the following occur: -- Your symptoms get worse -- Chest pain or trouble breathing -- Severe headache not relieved by rest and mild pain reliever -- Rapid or irregular heartbeat, fainting You have been given the following additional information: Anxiety Reaction (Electronically signed by Yunior Falk MD 02/04/2017 14:11)
--- NOTE | 2017-02-07 07:59 | ED MAR SUMMARY ---
..... Medication Administration Record [facility] [address], [place] [id number] Patient: BIRD HENAO Visit ID: [id number] 31y, F Weight: 88.4 kg Height/Length: 69 in BMI: 28.8 ALLERGIES: Azithromycin, Sulfa Antibiotics, Penicillins
--- NOTE | 2017-02-07 07:59 | ED MAR SUMMARY ---
..... Medication Administration Record [facility] [address] [place], [place] [id number] Patient: BIRD HENAO Visit ID: [id number] 31y, F Weight: 88.4 kg Height/Length: 69 in BMI: 28.8 ALLERGIES: Azithromycin, Sulfa Antibiotics, Penicillins
--- NOTE | 2017-02-07 07:59 | ED MED RECONCILIATION SUMMARY ---
Patient: BIRD HENAO Medication Reconciliation Report [facility] VisitID: [id number] [address] [place] [address] 31y, F Registration Date/Time: 02/04/2017 Weight: 88.4 kg Height/Length: 69 in. BMI: 28.8 ALLERGIES: Azithromycin, Penicillins, Sulfa Antibiotics The patient's Home Medications are listed below: THE FOLLOWING MEDICATIONS NEED TO BE RECONCILED: Citalopram Hydrobromide Oral Doxycycline x2 daily Flagyl Oral 500 mg, 2x a day The source(s) of the original Home Medication information: Not obtained. The following Medications were given to the patient in the Emergency Department: None. The following Medications were prescribed to the patient: None.
== END 2017-02-04 13:58 | disposition home or self-care (01) ==
LOC: ED SRH 12:35
DX: F41.1 Generalized anxiety disorder (principal); R20.0 Anesthesia of skin; Z79.899 Other long term (current) drug therapy; Z88.0 Allergy status to penicillin; Z88.1 Allergy status to other antibiotic agents; Z88.2 Allergy status to sulfonamides
CPT/HCPCS: 90004; 90100; 92235; 92530; 93070; 95059

== ENCOUNTER 2017-05-28 07:36 | Day surgery (SDC) | payer OTHER ==
[~2017-05-28] VITALS: Ht 175.3 cm; Wt 77.0 kg
--- NOTE | 2017-05-28 08:16 | NUR ---
PREOP INSTRUCTIONS GIVEN TO PATIENT. QUESTIONS ANSWERED. PATIENT VERBALIZES UNDERSTANDING. CONSENT CONFIRMED. SCDs ON. PREOP TYLENOL GIVEN. KB
[2017-05-28] MEDS ORDERED: HYCET1 ML PO (09:59)
--- NOTE | 2017-05-28 10:01 | Provider's Discharge Care Plan ---
Problem, Goal, Plan Problem List 1. STATUS POST LAPAROSCOPIC CHOLECYSTECTOMY Goals: Improve disease control, Therapeutic intervention Instructions: Follow up as directed, Take meds as directed
--- NOTE | 2017-05-28 10:01 | Provider's Discharge Care Plan ---
Problem, Goal, Plan Problem List 1. STATUS POST LAPAROSCOPIC CHOLECYSTECTOMY Goals: Improve disease control, Therapeutic intervention Instructions: Follow up as directed, Take meds as directed
--- NOTE | 2017-05-28 10:07 | Operative Report ---
Operative Report Date of Surgery: 05/28/17 Preoperate Diagnosis: chronic cholecystitis, cholelithiasis Postoperative Diagnosis: chronic cholecystitis, cholelithiasis Surgeon: Vamsi Allen MD Inspector And Clerk Surgeon: none Procedure Performed: Laparoscopic cholecystectomy, intraoperative cholangiogram Anesthesia: Gen. endotracheal Indications: 31-year-old female intermittent right upper quadrant pain. Ultrasound positive for cholelithiasis. FINDINGS: Distended gallbladder. Cholelithiasis. Normal intraoperative cholangiogram. Visualization hepatic radicals, hepatic duct, common duct with free flow of contrast material into the duodenum. No evidence of retained stone or obstruction. Surgical Technique: Patient brought to the operating room and placed in the dorsal supine position. Patient was administered general endotracheal anesthesia by the anesthesiology department. After proper anesthesia taken effect patient's abdomen was prepped using Betadine and draped in a sterile fashion. An infraumbilical incision made in the skin and down through the subcutaneous tissue. A Veress needle was inserted through this site and into the abdominal cavity. After ascertaining the appropriate position with suction irrigation a pneumoperitoneum was obtained using CO2 insufflation to approximate 14 15 mmHg pressure. The varices needle was removed and replaced with 10 mm trocar. The trocar removed leaving the sleeve behind. A laparoscopic video camera was introduced into the abdominal cavity. Under direct visualization a separate 10 mm trocar was placed in subxiphoid region. Two 5 mm trochars were placed in the anterior lateral abdominal wall approximately 3-4 fingerbreadths below the costal margin. Each trocar entered the abdominal cavity under direct visualization. Trochars removed leaving the sleeve behind through which laparoscopic instrumentation was introduced into the abdominal cavity. The aforementioned findings noted. The gallbladder grasped retracted cephalad. Using a combination of blunt dissection and electrocautery were able to circumferentially isolate the cystic duct. A clip was placed at the junction of the neck of the cystic duct and the gallbladder. Small incision made in the anterior surface of the cystic duct. Percutaneous cholangiocatheter was threaded through the anterior abdominal wall into the cystic duct and clipped into position. The fluoroscopic intraoperative cholangiogram was performed.. The aforementioned findings noted, the cholangiogram catheter was retrieved from the cystic duct and the abdominal cavity. The distal cystic duct was clipped in continuity divided. The cystic artery identified clipped continuity divided. The gallbladder was taken down from its bed in a retrograde fashion using electrocautery dissection. When the gallbladder was completely free from its bed, the gallbladder was placed in a sterile specimen container bag and retrieved from the abdominal cavity. The gallbladder specimen was sent to pathology. The gallbladder bed was inspected for hemostasis. The assuring ourselves of proper hemostasis, the right upper quadrant was irrigated copiously with normal saline antibiotic solution and irrigant suctioned out. Approximately 30 cc 0.5% Marcaine with epinephrine were sprayed over the right lobe of of the liver for postop analgesia. The pneumoperitoneum released. All trochars removed and the abdominal cavity. All trocar sites were approximated using 4-0 subcuticular Polysorb interrupted suture. Steri-Strips placed over the wound. Sterile occlusive dressing placed over each site. Patient tolerated procedure well. Patient was extubated and transferred recovery room in stable condition. There were no intraoperative anesthetic outpatient. CONDITION: Stable to postoperative anesthesia recovery room COMPLICATIONS: None ESTIMATED BLOOD LOSS: None FLUIDS: 900 cc lactate Ringers SPECIMEN: Gallbladder and contents
--- NOTE | 2017-05-28 10:20 | DIAGNOSTIC IMAGING REPORT ---
PROCEDURE: XR INTRAOPERATIVE LAP JULIET INDICATION: GALLSTONES TECHNIQUE: Intraoperative fluoroscopy provided for Dr. Allen performing an intraoperative cholangiogram following cholecystectomy. Total fluoroscopy time 5 seconds. Cumulative dose 1.3 mGy. COMPARISON: None. FINDINGS: A single intraoperative fluoroscopic spot image of the right upper quadrant of the abdomen demonstrates cannulation of the cystic duct stump and opacification of the intrahepatic and extrahepatic biliary tree. There are no filling defects. There is normal passage of contrast into the duodenum. IMPRESSION: 1. Negative intraoperative cholangiogram.
--- NOTE | 2017-05-28 11:24 | NUR ---
PRIOR D/C FROM PACU PT IS AWAKE AND ALERT.PT DENIES PAIN OR NAUSEA.PT STATES SHE IS WARM AND COMFORTABLE.VSS. ABDOMEN IS SOFT. DRESSING IS CLEAN AND DRY. TALKED TO PT IN PACU. QUESTIONS ANSWERED. REPORT GIVEN TO JAX OCHOA.
--- NOTE | 2017-05-28 11:31 | NUR ---
PATIENT RETURNED TO THE FLOOR AWAKE AND TALKING. VSS. TOLERATING ICE CHIPS. UP TO BR. VOIDED. SITTING IN A CHAIR EATING SOUP AND CRACKERS. AT BEDSIDE. KB
--- NOTE | 2017-05-28 12:26 | NUR ---
TOLERATING PO. DENIES PAIN OR NAUSEA. DISCHARGE INSTRUCTIONS GIVEN TO PATIENT. QUESTIONS ANSWERED. PATIENT VERBALIZES UNDERSTANDING. DISCHARGED HOME WITH HER . KB
[2017-05-28 12:39] VITALS: BP 123/82
== END 2017-05-28 12:29 | disposition home or self-care (01) ==
LOC: OR SRH 07:36 → OB SRH 07:36 → OR SRH 09:30
PROVIDERS: Specialist
PROC: BF131ZZ Fluoroscopy of Gallbladder and Bile Ducts using Low Osmolar Contrast (ICD-10-PCS; principal; 2017-05-28 09:30)
PROC: 0FT44ZZ Resection of Gallbladder, Percutaneous Endoscopic Approach (ICD-10-PCS; principal; 2017-05-28 09:30)
DX: K80.10 Calculus of gallbladder with chronic cholecystitis without obstruction (principal); F41.9 Anxiety disorder, unspecified

== ENCOUNTER 2017-06-02 14:38 | Emergency (ER) | payer OTHER ==
[~2017-06-02 14:38] MED LIST changes: +HYCET1 ML PO
--- NOTE | 2017-06-02 18:09 | DIAGNOSTIC IMAGING REPORT ---
PROCEDURE: CT ABD/PELVIS WITH CONTRAST INDICATION: Abdominal pain. 5 days status post cholecystectomy. TECHNIQUE: 125 ml of Isovue 300 were injected intravenously and axial images were obtained of the entire abdomen and pelvis with sagittal and coronal reformations. COMPARISON: None. FINDINGS: ABDOMEN: Status post cholecystectomy (surgical clips). There is a small amount of postoperative air in the cristy hepatis, and subcapsular liver. There is small amount of air in the umbilical access site. No evidence of fluid collection or abscess. Liver, spleen, pancreas, kidneys, and aorta are normal. There is moderate to large amount of stool throughout the colon. Appendix is normal. Small bowel pattern is normal. PELVIS: Moderate to large amount of stool throughout the sigmoid colon and rectum. T-shaped IUD within the uterus. Uterus and adnexa are otherwise normal. No evidence of free fluid. IMPRESSION: 1. Status post cholecystectomy with normal postoperative appearance. 2. Moderate to large amount of stool throughout the colon suggests obstipation. 3. T-shaped IUD in position. 4. Otherwise negative CT abdomen and pelvis. 5. Findings discussed with ARY Frost. All CT scans at this facility use dose modulation, iterative reconstruction, and/or weight-based dosing when appropriate to reduce radiation dose to as low as reasonably achievable.
--- NOTE | 2017-06-02 18:09 | DIAGNOSTIC IMAGING REPORT ---
PROCEDURE: CTA THORAX WITH CONTRAST INDICATION: Chest pain. 5 days status post cholecystectomy. Elevated D-dimer (1.88). TECHNIQUE: 125 ml of Isovue 370 was injected intravenously and axial images were obtained of the entire thorax with 3D sagittal and coronal MIP reconstructions. COMPARISON: None. FINDINGS: Lungs are clear. Pulmonary vessels are normal and there is no evidence of pulmonary embolus. Heart and mediastinum are normal. Thorax is normal. IMPRESSION: 1. Negative CT pulmonary arteriogram. No evidence of pulmonary embolus. 2. Findings discussed with ARY Frost. All CT scans at this facility use dose modulation, iterative reconstruction, and/or weight-based dosing when appropriate to reduce radiation dose to as low as reasonably achievable.
--- NOTE | 2017-06-02 18:18 | ED NURSING NOTES ---
Clinical Report - Nurses [facility] [place] [address] 06/02/2017 14:39 Patient: BIRD HENAO TRIAGE Acuity: LEVEL 3. Alert. No acute distress. SEPSIS SCREEN: Sepsis Screen. Negative (no infection suspected/documented). JOSE COMA SCORE: Leland Coma Scale: 15- eyes open spontaneously (4); best verbal response- oriented x 4 (5); best motor response- obeys commands (6). --14:57 Klarissa Hedrick R.N. 14:49 06/02/17. BP: 128/79. HR: 78. RR: 16. O2 saturation: 100%. Temp: 99.2 F (oral). Pain level now: 05/21. --14:57 Klarissa Hedrick R.N. Chief Complaint: CHEST PAIN (with inspiration and incision site pain). --18:39 Klarissa Hedrick R.N. Weight: 77.1 kg stated. Height/Length: 69 inches Per Patient. BMI: 25.1. --14:55 Klarissa Hedrick R.N. Medications Citalopram Hydrobromide Oral. --14:55 Klarissa Hedrick R.N. Allergies Penicillins. --14:55 Klarissa Hedrick R.N. Sulfa Antibiotics. --14:55 Klarissa Hedrick R.N. Medication/allergy information source: the patient. --14:57 Klarissa Hedrick R.N. History Arrived by private vehicle. Historian: patient. Accompanied by spouse and father. Primary physician (Varghese). This started today. ( Pt reports she had her gallbladder removed on Sunday by Dr Allen. Pt states she was doing well, and this am developed pain with inspiration, pain at incision site, and some tingling in her fingertips.). PAST MEDICAL HX: Immunizations: up-to-date. Uses an intrauterine device. SOCIAL HX: Never smoker. Occasional alcohol use. No drug use. FALL RISK ASSESSMENT: Fall risk assessment completed. No fall risk identified. NUTRITIONAL RISK ASSESSMENT: The nutritional risk assessment revealed no deficiencies. FUNCTIONAL ASSESSMENT: Functional assessment: no impairments noted. LEARNING NEEDS ASSESSMENT: The learning needs assessment revealed no barriers. SKIN INTEGRITY ASSESSMENT: Skin integrity risk assessment completed. No skin integrity risk identified. --14:57 Klarissa Hedrick R.N. PROBLEMS: Spontaneous (Miscarriage). OB History. . Depression. Chronic Headache. Immunizations. . Anxiety Reaction. Migraine Headache. --14:56 Klarissa Hedrick R.N. ADDITIONAL SURGERIES: Adenoidectomy. Cholecystectomy. . Dilatation & Curettage. Shoulder Surgery. Slap lesion repair. Tonsillectomy. Tonsillectomy & Adenoidectomy. --14:56 Klarissa Hedrick R.N. Interventions ID band on patient. To treatment room. --14:57 Klarissa Hedrick R.N. NURSING PROGRESS NOTES 14:57 06/02/17. Patient gowned. Reassurance given. Two patient identifiers checked. Checked patient name and birthdate: patient confirmed. Call light placed in reach. Bed placed in lowest position. Brakes of bed on. Patient ready for evaluation- chart flagged and ED physician and DINING HOST notified. --14:57 Klarissa Hedrick R.N. 16:06/02/2017 Site #1 started via IV in the right antecubital space with an 20g angiocath, with aseptic technique and good blood return; one attempt. Blood drawn: rainbow set. Labeled in the presence of the patient and sent to the lab. Saline lock flushed with 10 mL saline. --16: Klarissa Hedrick R.N. 16:06/02/2017 Started bag #1 1000 mL IV Fluids IV NS (Saline); at 999 mL/hr over 1 hour(s) via site #1 via IV pump. Allergies verified and confirmed 5 rights. IV patency established. IV site checked: no pain, redness, or swelling. IV flushed thoroughly pre- and post-medication administration. --16: Klarissa Hedrick R.N. 14:57 late entry -. Checked patient name and birthdate: patient confirmed. Instructions provided to collect clean catch urine and patient verbalized understanding. Clean catch urine collected with return of yellow-colored clear urine; sample sent to lab for urinalysis and HCG. Specimen labeled in the presence of the patient. --16:35 Klarissa Hedrick R.N. 17:13 06/02/2017 IV Fluids IV NS Discontinued: bag #1 infused. Total amount infused: 1000 mL. IV patency established. IV site checked: no pain, redness, or swelling. IV flushed thoroughly. --17:13 Klarissa Hedrick R.N. 17:14 06/02/17. Patient walked to [place] with At[employer]. --17:14 Klarissa Hedrick R.N. 18:11 06/02/17. BP: 121/71. HR: 73. RR: 16. O2 saturation: 100%. Temp: 99 F (oral). Pain level now: 0/10. --18:11 Klarissa Hedrick R.N. 18:12 06/02/17. The patient reports no complaints and she is calm and resting quietly. --18:12 Klarissa Hedrick R.N. DISPOSITION / DISCHARGE Departure time: 18:25 Jun 02 2017. Condition at departure: improved and stable. No learning barriers present. Discharge instructions provided and reviewed with the patient. Patient verbalized understanding. Written instructions provided in Maltese. The patient was discharged by the nurse practitioner. She was discharged home and accompanied by spouse. She left the Emergency Department ambulatory and via private vehicle. Spouse driving. --18:36 Klarissa Hedrick R.N. 18:35 06/02/17. BP: 121/71. HR: 73. RR: 16. O2 saturation: 100% on room air. Temp: 99 F (oral). Pain level now: 0/10. --18:36 Klarissa Hedrick R.N. 18:20 06/02/2017 Site #1 removed upon discharge. Catheter intact. Manual pressure and bandage applied. --18:37 Klarissa Hedrick R.N. Locked/Released at 06/02/2017 18:40 by Klarissa Hedrick R.N.
--- NOTE | 2017-06-02 18:18 | ED ORDER SUMMARY ---
..... Patient: BIRD HENAO OrderSheet [facility] VisitID: [id number] [place] [address] 31y, F Registration Date/Time: 06/02/2017 ORDER SHEET Weight: 77.1 kg (stated) Allergies: Penicillins, Sulfa Antibiotics GENERAL ORDERS: CTA Thorax/Abdomen/Pelvis (No) (pending) (pt had cholectomy sunday, now have increased abd pain and mild cp) Urgent (15:23 06/02/2017 HBivens A.R.N.P.) (Ack 15:25 PWeiler ER Tech1) (16:16 HBivens A.R.N.P.) (Cancelled: Other16:16 HBivens A.R.N.P.) CBC w Diff Urgent (15:24 06/02/2017 HBivens A.R.N.P.) (Ack 15:25 PWeiler ER Tech1) (16:09 MWinterer R.N.) CMP Urgent (15:24 06/02/2017 HBivens A.R.N.P.) (Ack 15:25 PWeiler ER Tech1) (16:09 MWinterer R.N.) D-Dimer Urgent (15:24 06/02/2017 HBivens A.R.N.P.) (Ack 15:25 PWeiler ER Tech1) (16:09 MWinterer R.N.) CTA Thorax w Cont (No) (pending) Urgent (16:16 06/02/2017 HBivens A.R.N.P.) (Ack 16:22 PWeiler ER Tech1) (18:18 MWinterer R.N.) CT Abd/Pel w Cont (No) (pending) Urgent (16:16 06/02/2017 HBivens A.R.N.P.) (Ack 16:22 PWeiler ER Tech1) (18:18 MWinterer R.N.) Urine Urgent (16:34 06/02/2017 MWinterer R.N. per protocol) (Ack 16:40 PWeiler ER Tech1) (16:42 MWinterer R.N.) UA-Culture if indicated Urgent (16:34 06/02/2017 MWinterer R.N. per protocol) (Ack 16:40 PWeiler ER Tech1) (16:42 MWinterer R.N.) MEDICATION ORDERS: IV FLUIDS: IV NS : initial bolus 1000 mL (1000 mL/hr), then none - (NOW) (15:23 06/02/2017 HBivens A.R.N.P.) (Ack 15:54 MWinterer R.N.) (16:09 MWinterer R.N.) IV Saline Lock (15:24 06/02/2017 HBivens A.R.N.P.) (Ack 15:54 MWinterer R.N.) (16:09 MWinterer R.N.) ORDER SHEET NOTES: [Electronically signed by Klarissa Hedrick R.N. (18:40 06/02/2017)] [Electronically signed by Jacquelyn BoatengR.N.PChantal (22:57 06/02/2017)] [Electronically locked/signed by Klarissa Hedrick R.N. (18:40 06/02/2017)]
--- NOTE | 2017-06-02 18:18 | ED CLINICAL REPORT ---
Clinical Report - Physicians/Mid [facility] [address] [place] [address] 06/02/2017 14:39 Patient: BIRD HENAO Time Seen: 1514; initial patient contact, initial documentation, patient care assumed. Arrived- By private vehicle. Historian- patient. HISTORY OF PRESENT ILLNESS Chief Complaint: ABDOMINAL PAIN. At its maximum, severity described as moderate. When seen in the E.D., severity described as moderate. Modifying factors- worsened by deep breaths. Not relieved by anything. It is described as "pain" and it is described as located in the right upper quadrant. This started today and is still present. It was abrupt in onset and has been constant. No nausea, loss of appetite, vomiting or diarrhea. (today started having RUQ pain and it hurts to breathe). No recent travel. Similar symptoms previously: None. Recent medical care: The patient was seen recently in the office and hospitalized. ( admitted sunday for gallbladder removal, done here by dr self, f/u yesterday, everything going good til today). REVIEW OF SYSTEMS No constipation, black stools, hematemesis, difficulty with urination or pain with urination. No urinary frequency, abnormal bleeding, fever or chest pain. Last bowel movement: today. The patient has had difficulty breathing (hurts to breathe and take deep breath). The patient denies dyspnea on exertion, orthopnea, paroxysmal nocturnal dyspnea and wheezing. All systems otherwise negative, except as recorded above. PAST HISTORY See nurses notes. PROBLEMS: Spontaneous (Miscarriage). OB History. . Depression. Chronic Headache. Immunizations. . Anxiety Reaction. Migraine Headache. --14:56 Klarissa Hedrick R.N. ADDITIONAL SURGERIES: Adenoidectomy. Cholecystectomy. . Dilatation & Curettage. Shoulder Surgery. Slap lesion repair. Tonsillectomy. Tonsillectomy & Adenoidectomy. --14:56 Klarissa Hedrick R.N. SOCIAL HISTORY Never smoker. Occasional alcohol use. No drug use. No recent travel. Is a local resident. FAMILY HISTORY Negative. ADDITIONAL NOTES The nursing notes have been reviewed with agreement regarding the chief complaint, HPI, ROS, PMH and patient medications and allergies. PHYSICAL EXAM Vital Signs: 06/02/2017 14:49 BP: 128/79. HR: 78. RR: 16. O2 saturation: 100%. Temp: 99.2 F. Pain level now: 10. Have been reviewed as normal and appear to be correct. Appearance: Alert. Oriented X3. No acute distress. Eyes: Pupils equal, round and reactive to light. Eyes normal inspection. Neck: Normal inspection. Neck supple. CVS: Normal heart rate and rhythm. Heart sounds normal. Pulses normal. Respiratory: No respiratory distress. Breath sounds normal. Chest nontender. Abdomen: Nontender. Bowel sounds normal. No organomegaly. No mass. Distention (mild distention). No tenderness, tympany to percussion or dullness to percussion. Not soft. (steri strips in place for lap jerry, surgical sites clear, no s/s of infection, no erythema, no swelling, no dc, no warmth). Back: Normal inspection. Skin: Skin warm and dry. Normal skin color. No rash. Normal skin turgor. Extremities: Extremities exhibit normal ROM. No lower extremity edema. Neuro: Oriented X 3. No motor deficit. No sensory deficit. LABS, X-RAYS, AND EKG Abdominal CT: No acute disease. IMPRESSION: 1. Status post cholecystectomy with normal postoperative appearance. 2. Moderate to large amount of stool throughout the colon suggests obstipation. 3. T-shaped IUD in position. 4. Otherwise negative CT abdomen and pelvis. 5. Findings discussed with ARY Frost. All CT scans at this facility use dose modulation, iterative reconstruction, and/or weight-based dosing when appropriate to reduce radiation dose to as low as reasonably achievable. Electronically Final signed by:Ryan Bender MD 06/02/2017 6:02:51 PM. The study was interpreted by the radiologist and discussed with the radiologist. Chest CT: No acute disease. (IMPRESSION: 1. Negative CT pulmonary arteriogram. No evidence of pulmonary embolus. 2. Findings discussed with Jacquelyn Tasneem, SEWING SUPERVISOR. All CT scans at this facility use dose modulation, iterative reconstruction, and/or weight-based dosing when appropriate to reduce radiation dose to as low as reasonably achievable. Electronically Final signed by:Ryan Bender MD 06/02/2017 6:03:44 PM). The study was interpreted by the radiologist and discussed with the radiologist. Interpretation time: 18:07. Laboratory Tests: UA-Culture if indicated: (QUANG: 06/02/2017 14:55) ( [facility] 06/02/2017 17:00) IP Test Result Flag Units (Reference) URINE COLOR STRAW URINE APPEARANCE CLEAR URINE GLUCOSE NEGATIVE (NEGATIVE) URINE BILIRUBIN NEGATIVE (NEGATIVE) URINE KETONE NEGATIVE (NEGATIVE) URINE SPECIFIC GRAVITY <= 1.005 L (1.010-1.030) URINE PH 6.0 (5.0-8.0) URINE PROTEIN NEGATIVE (NEGATIVE) URINE UROBILINOGEN 0.2 EU/dL (0.2-1.0) URINE NITRITE NEGATIVE (NEGATIVE) URINE BLOOD 2+ (NEGATIVE) URINE LEUK ESTERASE NEGATIVE (NEGATIVE) CBC w Diff: (QUANG: 06/02/2017 16:05) ( [facility] 06/02/2017 16:34) Final results Test Result Flag Units (Reference) WHITE BLOOD COUNT 8.8 K/uL (4.5-11.5) RED BLOOD COUNT 4.38 M/uL (4.00-5.20) HEMOGLOBIN 11.3 L gm/dL (12.0-16.0) HEMATOCRIT 34.2 L % (36.0-46.0) MEAN CELL VOLUME 78 L fL (80-100) MEAN CORPUSCULAR HGB 26 pg (26-34) MEAN CORPUSCULAR HGB CONC 33 g/dL (31-37) RED CELL DISTRIBUTION WIDTH 22.6 H % (11.6-14.8) PLATELET COUNT 276 K/uL (150-400) NEUTROPHIL % 64.0 % (50-75) LYMPH % 24.4 L % (25-40) MONO % 9.0 % (3-14) EOSINOPHIL % 2.3 % (0-4) BASOPHIL % 0.3 % (0-2) [id number]: (QUANG: 06/02/2017 16:05) ( MsgRcvd 06/02/2017 16:41) Final results Test Result Flag Units (Reference) D-DIMER QUANTITATIVE 1.88 H ug/mLFEU (0.27-0.52) The primary value of this quantitative assay relates toits negative predictive value (i.e. exclusion) of pulmonaryembolism/deep vein thrombosis/DIC.Elevated levels of d-dimer may also occur with:, age, cancer, inflammation, liver disease,post-op, infection, hematoma, coronary disease, peripheralarteriopathy, bleeding disorders and thrombolytic treatment.Results should be correlated with other clinical andradiological data.Testing Methodology: Latex Immunoassay CMP: (QUANG: 06/02/2017 16:05) ( MsgRcvd 06/02/2017 16:43) Final results Test Result Flag Units (Reference) GLUCOSE 91 mg/dL (70-110) BUN 13 mg/dL (7-18) CREATININE 0.8 mg/dL (0.6-1.3) Estimated GFR >60 mL/min Estimated GFR- >60 mL/min Note: Persistent reduction over 3 months in eGFR<60 mL/min/1.73 m2 defines CKD. Patients with eGFR values>=60 mL/min/1.73 m2 may also have CKD if evidence ofpersistent proteinuria. Additional information may be foundat www.kidney.org. SODIUM 140 mmol/L (136-145) POTASSIUM 3.8 mmol/L (3.5-5.1) CHLORIDE 105 mmol/L (98-107) CARBON DIOXIDE 27 mmol/L (21-32) CALCIUM 9.0 mg/dL (8.5-10.1) TOTAL PROTEIN 7.7 g/dL (6.4-8.2) ALBUMIN 3.5 g/dL (3.3-5.0) BILIRUBIN, TOTAL 0.5 mg/dL (0.0-1.0) ALKALINE PHOSPHATASE 86 U/L (46-116) AST (SGOT) 15 U/L (15-37) ALT (SGPT) 31 U/L (12-78) . PROGRESS AND PROCEDURES Course of Care: 16:16 06/02/17. Dr Bender called saying I could change the cta thorax and abd to plain ct abd and cta thorax 1734. Dr Allen called stating he was worried about a leak or pe, explained I was working pt up for both differential dx, and awaiting the ct, and d dimer was elevated, agreed to keep him posted with results 18:17 06/02/17. Called Dr Allen, to notify him pt's labs and ct's were normal and I was dc-ing pt home. 06/02/2017 18:11 BP: 121/71. HR: 73. RR: 16. O2 saturation: 100%. Temp: 99 F. Pain level now: 0/10. Vital Signs: have been reviewed as normal and appear to be correct. Patient counseled in person regarding the patient's stable condition, test results and diagnosis. 18:09. Differential Diagnosis: Other possible considerations: post op infection, hemorrhage, pe. Above considerations are based on history, physical exam, reassessment and other information. Differential diagnosis was discussed with patient. Disposition: Discharged home in good and improved condition (18:15). Condition: good and stable. CLINICAL IMPRESSION Acute right upper quadrant abdominal pain of unknown cause. INSTRUCTIONS Warnings: GENERAL WARNINGS: Return or contact your physician immediately if your condition worsens or changes unexpectedly, if not improving as expected, or if other problems arise. SPECIFICALLY, return if you develop pain in the abdomen or pelvis, fever, the inability to keep fluids down, blood in vomitus, blood in diarrhea, fainting or lightheadedness. Understanding of the discharge instructions verbalized by patient. Follow-up with: Vamsi Allen MD, General Surgeon, , [facility], [address] [place] [address] Follow up as scheduled even if well. Summary of care provided to patient. (Electronically signed by Jacquelyn Boateng A.R.N.P. 06/02/2017 22:58)
--- NOTE | 2017-06-02 18:18 | ED CLINICAL REPORT ---
Clinical Report - Physicians/Mid Levels [facility] [address] [place] [address] 06/02/2017 14:39 Patient: BIRD HENAO Time Seen: 1514; initial patient contact, initial documentation, patient care assumed. Arrived- By private vehicle. Historian- patient. HISTORY OF PRESENT ILLNESS Chief Complaint: ABDOMINAL PAIN. At its maximum, severity described as moderate. When seen in the E.D., severity described as moderate. Modifying factors- worsened by deep breaths. Not relieved by anything. It is described as "pain" and it is described as located in the right upper quadrant. This started today and is still present. It was abrupt in onset and has been constant. No nausea, loss of appetite, vomiting or diarrhea. (today started having RUQ pain and it hurts to breathe). No recent travel. Similar symptoms previously: None. Recent medical care: The patient was seen recently in the office and hospitalized. ( admitted sunday for gallbladder removal, done here by dr self, f/u yesterday, everything going good til today). REVIEW OF SYSTEMS No constipation, black stools, hematemesis, difficulty with urination or pain with urination. No urinary frequency, abnormal bleeding, fever or chest pain. Last bowel movement: today. The patient has had difficulty breathing (hurts to breathe and take deep breath). The patient denies dyspnea on exertion, orthopnea, paroxysmal nocturnal dyspnea and wheezing. All systems otherwise negative, except as recorded above. PAST HISTORY See nurses notes. PROBLEMS: Spontaneous (Miscarriage). OB History. . Depression. Chronic Headache. Immunizations. . Anxiety Reaction. Migraine Headache. --14:56 Klarissa Hedrick R.N. ADDITIONAL SURGERIES: Adenoidectomy. Cholecystectomy. . Dilatation & Curettage. Shoulder Surgery. Slap lesion repair. Tonsillectomy. Tonsillectomy & Adenoidectomy. --14:56 Klarissa Hedrick R.N. SOCIAL HISTORY Never smoker. Occasional alcohol use. No drug use. No recent travel. Is a local resident. FAMILY HISTORY Negative. ADDITIONAL NOTES The nursing notes have been reviewed with agreement regarding the chief complaint, HPI, ROS, PMH and patient medications and allergies. PHYSICAL EXAM Vital Signs: 06/02/2017 14:49 BP: 128/79. HR: 78. RR: 16. O2 saturation: 100%. Temp: 99.2 F. Pain level now: 10. Have been reviewed as normal and appear to be correct. Appearance: Alert. Oriented X3. No acute distress. Eyes: Pupils equal, round and reactive to light. Eyes normal inspection. Neck: Normal inspection. Neck supple. CVS: Normal heart rate and rhythm. Heart sounds normal. Pulses normal. Respiratory: No respiratory distress. Breath sounds normal. Chest nontender. Abdomen: Nontender. Bowel sounds normal. No organomegaly. No mass. Distention (mild distention). No tenderness, tympany to percussion or dullness to percussion. Not soft. (steri strips in place for lap jerry, surgical sites clear, no s/s of infection, no erythema, no swelling, no dc, no warmth). Back: Normal inspection. Skin: Skin warm and dry. Normal skin color. No rash. Normal skin turgor. Extremities: Extremities exhibit normal ROM. No lower extremity edema. Neuro: Oriented X 3. No motor deficit. No sensory deficit. LABS, X-RAYS, AND EKG Abdominal CT: No acute disease. IMPRESSION: 1. Status post cholecystectomy with normal postoperative appearance. 2. Moderate to large amount of stool throughout the colon suggests obstipation. 3. T-shaped IUD in position. 4. Otherwise negative CT abdomen and pelvis. 5. Findings discussed with ARY Frost. All CT scans at this facility use dose modulation, iterative reconstruction, and/or weight-based dosing when appropriate to reduce radiation dose to as low as reasonably achievable. Electronically Final signed by:Ryan Bender MD 06/02/2017 6:02:51 PM. The study was interpreted by the radiologist and discussed with the radiologist. Chest CT: No acute disease. (IMPRESSION: 1. Negative CT pulmonary arteriogram. No evidence of pulmonary embolus. 2. Findings discussed with Jacquelyn Tasneem, WATER PLUMBER. All CT scans at this facility use dose modulation, iterative reconstruction, and/or weight-based dosing when appropriate to reduce radiation dose to as low as reasonably achievable. Electronically Final signed by:Ryan Bender MD 06/02/2017 6:03:44 PM). The study was interpreted by the radiologist and discussed with the radiologist. Interpretation time: 18:07. Laboratory Tests: UA-Culture if indicated: (QUANG: 06/02/2017 14:55) ( [facility] IP Test Result Flag Units (Reference) URINE COLOR STRAW URINE APPEARANCE CLEAR URINE GLUCOSE NEGATIVE (NEGATIVE) URINE BILIRUBIN NEGATIVE (NEGATIVE) URINE KETONE NEGATIVE (NEGATIVE) URINE SPECIFIC GRAVITY <= 1.005 L (1.010-1.030) URINE PH 6.0 (5.0-8.0) URINE PROTEIN NEGATIVE (NEGATIVE) URINE UROBILINOGEN 0.2 EU/dL (0.2-1.0) URINE NITRITE NEGATIVE (NEGATIVE) URINE BLOOD 2+ (NEGATIVE) URINE LEUK ESTERASE NEGATIVE (NEGATIVE) CBC w Diff: (QUANG: 06/02/2017 16:05) ( [facility] 06/02/2017 16:34) Final results Test Result Flag Units (Reference) WHITE BLOOD COUNT 8.8 K/uL (4.5-11.5) RED BLOOD COUNT 4.38 M/uL (4.00-5.20) HEMOGLOBIN 11.3 L gm/dL (12.0-16.0) HEMATOCRIT 34.2 L % (36.0-46.0) MEAN CELL VOLUME 78 L fL (80-100) MEAN CORPUSCULAR HGB 26 pg (26-34) MEAN CORPUSCULAR HGB CONC 33 g/dL (31-37) RED CELL DISTRIBUTION WIDTH 22.6 H % (11.6-14.8) PLATELET COUNT 276 K/uL (150-400) NEUTROPHIL % 64.0 % (50-75) LYMPH % 24.4 L % (25-40) MONO % 9.0 % (3-14) EOSINOPHIL % 2.3 % (0-4) BASOPHIL % 0.3 % (0-2) [id number]: (QUANG: 06/02/2017 16:05) ( MsgRcvd 06/02/2017 16:41) Final results Test Result Flag Units (Reference) D-DIMER QUANTITATIVE 1.88 H ug/mLFEU (0.27-0.52) The primary value of this quantitative assay relates toits negative predictive value (i.e. exclusion) of pulmonaryembolism/deep vein thrombosis/DIC.Elevated levels of d-dimer may also occur with:, age, cancer, inflammation, liver disease,post-op, infection, hematoma, coronary disease, peripheralarteriopathy, bleeding disorders and thrombolytic treatment.Results should be correlated with other clinical andradiological data.Testing Methodology: Latex Immunoassay CMP: (QUANG: 06/02/2017 16:05) ( MsgRcvd 06/02/2017 16:43) Final results Test Result Flag Units (Reference) GLUCOSE 91 mg/dL (70-110) BUN 13 mg/dL (7-18) CREATININE 0.8 mg/dL (0.6-1.3) Estimated GFR >60 mL/min Estimated GFR- >60 mL/min Note: Persistent reduction over 3 months in eGFR<60 mL/min/1.73 m2 defines CKD. Patients with eGFR values>=60 mL/min/1.73 m2 may also have CKD if evidence ofpersistent proteinuria. Additional information may be foundat www.kidney.org. SODIUM 140 mmol/L (136-145) POTASSIUM 3.8 mmol/L (3.5-5.1) CHLORIDE 105 mmol/L (98-107) CARBON DIOXIDE 27 mmol/L (21-32) CALCIUM 9.0 mg/dL (8.5-10.1) TOTAL PROTEIN 7.7 g/dL (6.4-8.2) ALBUMIN 3.5 g/dL (3.3-5.0) BILIRUBIN, TOTAL 0.5 mg/dL (0.0-1.0) ALKALINE PHOSPHATASE 86 U/L (46-116) AST (SGOT) 15 U/L (15-37) ALT (SGPT) 31 U/L (12-78) . PROGRESS AND PROCEDURES Course of Care: 16:16 06/02/17. Dr Bender called saying I could change the cta thorax and abd to plain ct abd and cta thorax 1734. Dr Allen called stating he was worried about a leak or pe, explained I was working pt up for both differential dx, and awaiting the ct, and d dimer was elevated, agreed to keep him posted with results 18:17 06/02/17. Called Dr Allen, to notify him pt's labs and ct's were normal and I was dc-ing pt home. 06/02/2017 18:11 BP: 121/71. HR: 73. RR: 16. O2 saturation: 100%. Temp: 99 F. Pain level now: 0/10. Vital Signs: have been reviewed as normal and appear to be correct. Patient counseled in person regarding the patient's stable condition, test results and diagnosis. 18:09. Differential Diagnosis: Other possible considerations: post op infection, hemorrhage, pe. Above considerations are based on history, physical exam, reassessment and other information. Differential diagnosis was discussed with patient. Disposition: Discharged home in good and improved condition (18:15). Condition: good and stable. CLINICAL IMPRESSION Acute right upper quadrant abdominal pain of unknown cause. INSTRUCTIONS Warnings: GENERAL WARNINGS: Return or contact your physician immediately if your condition worsens or changes unexpectedly, if not improving as expected, or if other problems arise. SPECIFICALLY, return if you develop pain in the abdomen or pelvis, fever, the inability to keep fluids down, blood in vomitus, blood in diarrhea, fainting or lightheadedness. Understanding of the discharge instructions verbalized by patient. Follow-up with: Vamsi Allen MD, General Surgeon, , [facility], [address] [place] [address] Follow up as scheduled even if well. Summary of care provided to patient. (Electronically signed by Jacquelyn Boateng A.R.N.P. 06/02/2017 22:58)
--- NOTE | 2017-06-02 18:18 | ED ORDER SUMMARY ---
..... Patient: BIRD HENAO OrderSheet [facility] VisitID: [id number] [place] [address] 31y, F Registration Date/Time: 06/02/2017 ORDER SHEET Weight: 77.1 kg (stated) Allergies: Penicillins, Sulfa Antibiotics GENERAL ORDERS: CTA Thorax/Abdomen/Pelvis (No) (pending) (pt had cholectomy sunday, now have increased abd pain and mild cp) Urgent (15:23 06/02/2017 HBivens A.R.N.P.) (Ack 15:25 PWeiler ER Tech1) (16:16 HBivens A.R.N.P.) (Cancelled: Other16:16 HBivens A.R.N.P.) CBC w Diff Urgent (15:24 06/02/2017 HBivens A.R.N.P.) (Ack 15:25 PWeiler ER Tech1) (16:09 MWinterer R.N.) CMP Urgent (15:24 06/02/2017 HBivens A.R.N.P.) (Ack 15:25 PWeiler ER Tech1) (16:09 MWinterer R.N.) D-Dimer Urgent (15:24 06/02/2017 HBivens A.R.N.P.) (Ack 15:25 PWeiler ER Tech1) (16:09 MWinterer R.N.) CTA Thorax w Cont (No) (pending) Urgent (16:16 06/02/2017 HBivens A.R.N.P.) (Ack 16:22 PWeiler ER Tech1) (18:18 MWinterer R.N.) CT Abd/Pel w Cont (No) (pending) Urgent (16:16 06/02/2017 HBivens A.R.N.P.) (Ack 16:22 PWeiler ER Tech1) (18:18 MWinterer R.N.) Urine Urgent (16:34 06/02/2017 MWinterer R.N. per protocol) (Ack 16:40 PWeiler ER Tech1) (16:42 MWinterer R.N.) UA-Culture if indicated Urgent (16:34 06/02/2017 MWinterer R.N. per protocol) (Ack 16:40 PWeiler ER Tech1) (16:42 MWinterer R.N.) MEDICATION ORDERS: IV FLUIDS: IV NS : initial bolus 1000 mL (1000 mL/hr), then none - (NOW) (15:23 06/02/2017 HBivens A.R.N.P.) (Ack 15:54 MWinterer R.N.) (16:09 MWinterer R.N.) IV Saline Lock (15:24 06/02/2017 HBivens A.R.N.P.) (Ack 15:54 MWinterer R.N.) (16:09 MWinterer R.N.) ORDER SHEET NOTES: [Electronically signed by Klarissa Hedrick R.N. (18:40 06/02/2017)] [Electronically signed by Jacquelyn BoatengR.N.PChantal (22:57 06/02/2017)] [Electronically locked/signed by Klarissa Hedrick R.N. (18:40 06/02/2017)]
--- NOTE | 2017-06-02 18:18 | ED NURSING NOTES ---
Clinical Report - Nurses [facility] [address] 06/02/2017 14:39 Patient: BIRD HENAO TRIAGE Acuity: LEVEL 3. Alert. No acute distress. SEPSIS SCREEN: Sepsis Screen. Negative (no infection suspected/documented). JOSE COMA SCORE: [place] Coma Scale: 15- eyes open spontaneously (4); best verbal response- oriented x 4 (5); best motor response- obeys commands (6). --14:57 Klarissa Hedrick R.N. 14:49 06/02/17. BP: 128/79. HR: 78. RR: 16. O2 saturation: 100%. Temp: 99.2 F (oral). Pain level now: 05/21. --14:57 Klarissa Hedrick R.N. Chief Complaint: CHEST PAIN (with inspiration and incision site pain). --18:39 Klarissa Hedrick R.N. Weight: 77.1 kg stated. Height/Length: 69 inches Per Patient. BMI: 25.1. --14:55 Klarissa Hedrick R.N. Medications Citalopram Hydrobromide Oral. --14:55 Klarissa Hedrick R.N. Allergies Penicillins. --14:55 Klarissa Hedrick R.N. Sulfa Antibiotics. --14:55 Klarissa Hedrick R.N. Medication/allergy information source: the patient. --14:57 Klarissa Hedrick R.N. History Arrived by private vehicle. Historian: patient. Accompanied by spouse and father. Primary physician (Varghese). This started today. ( Pt reports she had her gallbladder removed on Sunday by Dr Allen. Pt states she was doing well, and this am developed pain with inspiration, pain at incision site, and some tingling in her fingertips.). PAST MEDICAL HX: Immunizations: up-to-date. Uses an intrauterine device. SOCIAL HX: Never smoker. Occasional alcohol use. No drug use. FALL RISK ASSESSMENT: Fall risk assessment completed. No fall risk identified. NUTRITIONAL RISK ASSESSMENT: The nutritional risk assessment revealed no deficiencies. FUNCTIONAL ASSESSMENT: Functional assessment: no impairments noted. LEARNING NEEDS ASSESSMENT: The learning needs assessment revealed no barriers. SKIN INTEGRITY ASSESSMENT: Skin integrity risk assessment completed. No skin integrity risk identified. --14:57 Klarissa Hedrick R.N. PROBLEMS: Spontaneous (Miscarriage). OB History. . Depression. Chronic Headache. Immunizations. . Anxiety Reaction. Migraine Headache. --14:56 Klarissa Hedrick R.N. ADDITIONAL SURGERIES: Adenoidectomy. Cholecystectomy. . Dilatation & Curettage. Shoulder Surgery. Slap lesion repair. Tonsillectomy. Tonsillectomy & Adenoidectomy. --14:56 Klarissa Hedrick R.N. Interventions ID band on patient. To treatment room. --14:57 Klarissa Hedrick R.N. NURSING PROGRESS NOTES 14:57 06/02/17. Patient gowned. Reassurance given. Two patient identifiers checked. Checked patient name and birthdate: patient confirmed. Call light placed in reach. Bed placed in lowest position. Brakes of bed on. Patient ready for evaluation- chart flagged and ED physician and SLD TEACHER notified. --14:57 Klarissa Hedrick R.N. 16:06/02/2017 Site #1 started via IV in the right antecubital space with an 20g angiocath, with aseptic technique and good blood return; one attempt. Blood drawn: rainbow set. Labeled in the presence of the patient and sent to the lab. Saline lock flushed with 10 mL saline. --16: Klarissa Hedrick R.N. 16:06/02/2017 Started bag #1 1000 mL IV Fluids IV NS (Saline); at 999 mL/hr over 1 hour(s) via site #1 via IV pump. Allergies verified and confirmed 5 rights. IV patency established. IV site checked: no pain, redness, or swelling. IV flushed thoroughly pre- and post-medication administration. --16: Klarissa Hedrick R.N. 14:57 late entry -. Checked patient name and birthdate: patient confirmed. Instructions provided to collect clean catch urine and patient verbalized understanding. Clean catch urine collected with return of yellow-colored clear urine; sample sent to lab for urinalysis and HCG. Specimen labeled in the presence of the patient. --16:35 Klarissa Hedrick R.N. 17:13 06/02/2017 IV Fluids IV NS Discontinued: bag #1 infused. Total amount infused: 1000 mL. IV patency established. IV site checked: no pain, redness, or swelling. IV flushed thoroughly. --17:13 Klarissa Hedrick R.N. 17:14 06/02/17. Patient walked to ME with [employer]. --17:14 Klarissa Hedrick R.N. 18:11 06/02/17. BP: 121/71. HR: 73. RR: 16. O2 saturation: 100%. Temp: 99 F (oral). Pain level now: 0/10. --18:11 Klarissa Hedrick R.N. 18:12 06/02/17. The patient reports no complaints and she is calm and resting quietly. --18:12 Klarissa Hedrick R.N. DISPOSITION / DISCHARGE Departure time: 18:25 Jun 02 2017. Condition at departure: improved and stable. No learning barriers present. Discharge instructions provided and reviewed with the patient. Patient verbalized understanding. Written instructions provided in [place]. The patient was discharged by the nurse practitioner. She was discharged home and accompanied by spouse. She left the Emergency Department ambulatory and via private vehicle. Spouse driving. --18:36 Klarissa Hedrick R.N. 18:35 06/02/17. BP: 121/71. HR: 73. RR: 16. O2 saturation: 100% on room air. Temp: 99 F (oral). Pain level now: 0/10. --18:36 Klarissa Hedrick R.N. 18:20 06/02/2017 Site #1 removed upon discharge. Catheter intact. Manual pressure and bandage applied. --18:37 Klarissa Hedrick R.N. Locked/Released at 06/02/2017 18:40 by Klarissa Hedrick R.N.
--- NOTE | 2017-06-02 22:58 | ED DISCHARGE INSTRUCTIONS ---
Patient: BIRD HENAO General Instructions [facility] VisitID: [id number] [place] [address] 31y, F Registration Date/Time: 06/02/2017 Acute right upper quadrant abdominal pain of unknown cause. INSTRUCTIONS Warnings: GENERAL WARNINGS: Return or contact your physician immediately if your condition worsens or changes unexpectedly, if not improving as expected, or if other problems arise. SPECIFICALLY, return if you develop pain in the abdomen or pelvis, fever, the inability to keep fluids down, blood in vomitus, blood in diarrhea, fainting or lightheadedness. Understanding of the discharge instructions verbalized by patient. Follow-up with: Vamsi Allen MD, General Surgeon, , [facility], [address] [place] [address] Follow up as scheduled even if well. Summary of care provided to patient. ADDITIONAL INFORMATION Abdominal Pain, Unknown Cause (Female) The exact cause of your abdominal (stomach) pain is not certain. This does not mean that this is something to worry about, or the right tests were not done. Everyone likes to know the exact cause of the problem, but sometimes with abdominal pain, there is no clear-cut cause, and this could be a good thing. The good news is that your symptoms can be treated, and you will feel better. Your condition does not seem serious now; however, sometimes the signs of a serious problem may take more time to appear. For this reason,it is important for you to watch for any new symptoms, problems,or worsening of your condition. Over the next few days, the abdominal pain may come and go, or be continuous. Other common symptoms can include nausea and vomiting. Sometimes it can be difficult to tell if you feel nauseous, you may just feel bad and not associate that feeling with nausea. Constipation, diarrhea, and a fever may go along with the pain. The pain may continue even if treated correctly over the following days. Depending on how things go, sometimes the cause can become clear and may require further or different treatment. Additional evaluations, medications, or tests may be needed. Home care Your health care provider may prescribe medications for pain, symptoms, or an infection. Follow the health care provider's instructions for taking these medications. General care Rest until your next exam. No strenuous activities. Try to find positions that ease discomfort. A small pillow placed on the abdomen may help relieve pain. Something warm on your abdomen (such as a heating pad) may help, but be careful not to burn yourself. Diet Do not force yourself to eat, especially if having cramps, vomiting, or diarrhea. Water is important so you do not get dehydrated. Soup may also be good. Sports drinks may also help, especially if they are not too acidic. Make sure you don't drink sugary drinks as this can make things worse. Take liquids in small amounts. Do not guzzle them. Caffeine sometimes makes the pain and cramping worse. Avoid dairy products if you have vomiting or diarrhea. Don't eat large amounts at a time. Wait a few minutes between bites. Eat a diet low in fiber (called a low-residue diet). Foods allowed include refined breads, white rice, fruit and vegetable juices without pulp, tender meats. These foods will pass more easily through the intestine. Avoid whole-grain foods, whole fruits and vegetables, meats, seeds and nuts, fried or fatty foods, dairy, alcohol and spicy foods until your symptoms go away. Follow-up care Follow up with your health care provider as instructed, or if your pain does not begin to improve in the next 24 hours. When to seek medical care Seek prompt medical care if any of the following occur: Pain gets worse or moves to the right lower abdomen New or worsening vomiting or diarrhea Swelling of the abdomen Unable to pass stool for more than three days Fever of 100.4F (38C) or higher, or as directed by your healthcare provider. Blood in vomit or bowel movements (dark red or black color) Jaundice (yellow color of eyes and skin) Weakness, dizziness Chest, arm, back, neck or jaw pain Unexpected vaginal bleeding or missed period Call 911 Call emergency services if any of the following occur: Trouble breathing Confusion Fainting or loss of consciousness Rapid heart rate Seizure You have been given the following additional information: Abdominal Pain, Unknown Cause, (Female) (Electronically signed by Jacquelyn Boateng A.R.N.P. 06/02/2017 22:58)
--- NOTE | 2017-06-02 22:58 | ED MAR SUMMARY ---
..... Medication Administration Record [facility] [address] [place] [address] Patient: BIRD HENAO Visit ID: [id number] 31y, F Weight: 77.1 kg Height/Length: 69 in BMI: 25.1 ALLERGIES: Sulfa Antibiotics, Penicillins Start 16:09 06/02/2017 Klarissa Hedrick RCarlos, Stop 17:13 06/02/2017 Klarissa Hedrick RCarlos Medication Administered: IV NS (SALINE), Dose: IV Fluids over 1 hour(s), Rate: 999 mL/hr, Dispensed: 1000 mL bag, Site: #1 right AC. Medication Ordered: IV NS : initial bolus 1000 mL (1000 mL/hr), then none - (NOW).
--- NOTE | 2017-06-02 22:58 | ED MAR SUMMARY ---
..... Medication Administration Record [facility] [address] [place] [address] Patient: BIRD HENAO Visit ID: [id number] 31y, F Weight: 77.1 kg Height/Length: 69 in BMI: 25.1 ALLERGIES: Sulfa Antibiotics, Penicillins Start 16:09 06/02/2017 Klarissa Hedrick RCarlos, Stop 17:13 06/02/2017 Klarissa Hedrick RCarlos Medication Administered: IV NS (SALINE), Dose: IV Fluids over 1 hour(s), Rate: 999 mL/hr, Dispensed: 1000 mL bag, Site: #1 right AC. Medication Ordered: IV NS : initial bolus 1000 mL (1000 mL/hr), then none - (NOW).
--- NOTE | 2017-06-02 22:58 | ED MED RECONCILIATION SUMMARY ---
Patient: BIRD HENAO Medication Reconciliation Report [facility] VisitID: [id number] [address] [place] [place] [address] 31y, F Registration Date/Time: 06/02/2017 Weight: 77.1 kg Height/Length: 69 in. BMI: 25.1 ALLERGIES: Penicillins, Sulfa Antibiotics The patient's Home Medications are listed below: THE FOLLOWING MEDICATIONS NEED TO BE RECONCILED: Citalopram Hydrobromide Oral The source(s) of the original Home Medication information: patient The following Medications were given to the patient in the Emergency Department: IV NS IV Fluids bolus 0, then 999 mL/hr, administered: 06/02/2017 4:09:00 PM The following Medications were prescribed to the patient: None.
--- NOTE | 2017-06-02 22:58 | ED MED RECONCILIATION SUMMARY ---
Patient: BIRD HENAO Medication Reconciliation Report [facility] VisitID: [id number] [address] [place] [address] 31y, F Registration Date/Time: 06/02/2017 Weight: 77.1 kg Height/Length: 69 in. BMI: 25.1 ALLERGIES: Penicillins, Sulfa Antibiotics The patient's Home Medications are listed below: THE FOLLOWING MEDICATIONS NEED TO BE RECONCILED: Citalopram Hydrobromide Oral The source(s) of the original Home Medication information: patient The following Medications were given to the patient in the Emergency Department: IV NS IV Fluids bolus 0, then 999 mL/hr, administered: 06/02/2017 4:09:00 PM The following Medications were prescribed to the patient: None.
== END 2017-06-02 18:25 | disposition home or self-care (01) ==
LOC: ED SRH 14:38
DX: R10.11 Right upper quadrant pain (principal); Z98.890 Other specified postprocedural states; Z88.0 Allergy status to penicillin; Z88.2 Allergy status to sulfonamides
CPT/HCPCS: 90004; 90100; 91556; 93070; 95059